=== PATIENT | female | born 1980 | race African-American/Black ===

== ENCOUNTER 2016-04-14 18:56 | Emergency (ER) | payer MEDICAID ==
[~2016-04-14] VITALS: Ht 160 cm; Wt 122.7 kg
[~2016-04-14 18:56] MED LIST: BENZ1TAB10 PO; HALO5 PO; HYDR25TA PO; IBUP-1547 PO; INSU100V12 SQ; LOSA1TAB36 PO; METF500T4 PO; SERT50TA12 PO
[2016-04-14 19:06] LABS: GLUCOSE,POINT OF CARE 269 MG/DL (70-110)
[2016-04-14] MEDS ORDERED: LOSA50TA37 PO (19:08)
[2016-04-14] MEDS ORDERED: BENZ2TAB10 PO (19:08)
[2016-04-14 19:36] LABS: BASOPHILS # (AUTO) 0.01 K/uL (0.00-0.20); BASOPHILS % (AUTO) 0.1 % (0.0-2.0); EOSINOPHILS # (AUTO) 0.11 K/uL (0.00-0.70); EOSINOPHILS % (AUTO) 0.88 % (1.0-6.0); HEMATOCRIT 43.3 % (36-46); HEMOGLOBIN 14.3 g/dL (12.0-16.0); LYMPHOCYTES # (AUTO) 2.4 K/uL (1.0-4.8); LYMPHOCYTES % (AUTO) 18.7 % (22.0-44.0); MEAN CORPUSCULAR HEMOGLOBIN 29.7 pg (26.0-34.0); MEAN CORPUSCULAR VOLUME 90 fL (80-100); MONOCYTES # (AUTO) 0.4 K/uL (0.1-1.0); MONOCYTES % (AUTO) 3.1 % (2.0-9.0); NEUTROPHILS # (AUTO) 9.8 K/uL (1.8-7.7); NEUTROPHILS % (AUTO) 77.3 % (40.0-70.0); PLATELET COUNT (AUTO) 311 K/uL (150-450); RED BLOOD CELL COUNT(AUTO) 4.82 MIL/uL (4.00-5.20); RED CELL DISTRIBUTION WIDTH 15.4 % (11.5-14.5); WHITE BLOOD COUNT (AUTO) 12.7 K/uL (4.5-11.0)
[2016-04-14 19:55] LABS: ANION GAP 7 mmol/L (8-16); CALCIUM, TOTAL 8.8 mg/dL (8.8-10.5); CARBON DIOXIDE 29 mmol/L (22-29); CHLORIDE 100 mmol/L (98-107); CREATININE 0.88 mg/dL (0.60-1.30); GLOMERULAR FILTR. RATE CALC > 60 mL/min (>60); POTASSIUM 3.8 mmol/L (3.5-5.1); SODIUM SERUM 136 mmol/L (136-145); UREA NITROGEN, BLOOD 10 mg/dL (7-18)
[2016-04-14 20:01] LABS: ALANINE AMINOTRANSFERASE 29 U/L (12-78); ALBUMIN 3.3 g/dL (3.4-5.0); ASPARTATE AMINOTRANSFERASE 11 U/L (15-37); BILIRUBIN,TOTAL 0.1 mg/dL (0.1-1.0); TOTAL PROTEIN, SERUM 7.4 g/dL (6.4-8.2)
[2016-04-14 23:00] VITALS: BP 126/74
[2016-04-14] MEDS ORDERED: HALOPERIDOL LACTATE 5 MG/ML VIAL IM ONE (23:00)
[2016-04-14] MEDS ORDERED: LORazepam 2 MG/ML VIAL IM ONE (23:00)
== END 2016-04-14 23:58 | disposition home or self-care (01) ==
LOC: EMS 18:58 → EDBD 18:58 → EMS 23:58
DX: S20.219A Contusion of unspecified front wall of thorax, initial encounter (principal); E11.65 Type 2 diabetes mellitus with hyperglycemia; F69 Unspecified disorder of adult personality and behavior; I10 Essential (primary) hypertension; F17.210 Nicotine dependence, cigarettes, uncomplicated; F20.9 Schizophrenia, unspecified; F41.9 Anxiety disorder, unspecified; F32.9 Major depressive disorder, single episode, unspecified; F12.90 Cannabis use, unspecified, uncomplicated; Z88.0 Allergy status to penicillin; X58.XXXA Exposure to other specified factors, initial encounter; Y93.89 Activity, other specified; Y92.89 Other specified places as the place of occurrence of the external cause; Y99.8 Other external cause status
CPT/HCPCS: 36415; 80053; 80307; 82962; 84703; 85025; 99284; G0480

== ENCOUNTER 2016-04-20 12:07 | Emergency (ER) | payer MEDICAID ==
[~2016-04-20] VITALS: Ht 167.6 cm; Wt 122.0 kg
[~2016-04-20 12:07] MED LIST changes: -BENZ1TAB10 PO; +BENZ2TAB10 PO; -LOSA1TAB36 PO; +LOSA50TA37 PO; -SERT50TA12 PO
[2016-04-20 14:26] LABS: BASOPHILS % (AUTO) 0.3 % (0.0-2.0); EOSINOPHILS % (AUTO) 1.3 % (1.0-6.0); HEMATOCRIT 46.7 % (36-46); HEMOGLOBIN 15.1 g/dL (12.0-16.0); LYMPHOCYTES # (AUTO) 3.3 K/uL (1.0-4.8); LYMPHOCYTES % (AUTO) 32.4 % (22.0-44.0); MEAN CORPUSCULAR HEMOGLOBIN 29.1 pg (26.0-34.0); MEAN CORPUSCULAR HGB CONC 32.4 G/dL (31.0-37.0); MEAN CORPUSCULAR VOLUME 90 fL (80-100); MONOCYTES # (AUTO) 0.7 K/uL (0.1-1.0); MONOCYTES % (AUTO) 6.6 % (2.0-9.0); NEUTROPHILS # (AUTO) 6.1 K/uL (1.8-7.7); NEUTROPHILS % (AUTO) 59.4 % (40.0-70.0); PLATELET COUNT (AUTO) 280 K/uL (150-450); RED CELL DISTRIBUTION WIDTH 14.8 % (11.5-14.5); WHITE BLOOD COUNT (AUTO) 10.3 K/uL (4.5-11.0)
[2016-04-20] MEDS ORDERED: KETOROLAC TROMETHAMINE 60 MG/2 ML VIAL IM ONE (15:45)
[2016-04-20 16:12] LABS: APPEARANCE,URINE CLEAR (CLEAR); GLUCOSE, URINE (UA) >=1000 mg/dL (NEGATIVE); KETONES,URINE NEGATIVE (NEGATIVE); LEUKOCYTE ESTERASE ,URINE NEGATIVE (NEGATIVE); OCCULT BLOOD,URINE NEGATIVE (NEGATIVE); PH,URINE 5.5 (5.0-8.0); PROTEIN,URINE POS 1+ (NEGATIVE)
[2016-04-20 16:13] LABS: ADD UA MICROSCOPIC YES
[2016-04-20 16:33] LABS: SQUAMOUS EPITHELIAL CELL,UR Moderate /LPF (None Seen)
[2016-04-20 16:34] LABS: COARSE GRANULAR CASTS,URINE 0-2 /LPF (None Seen); FINE GRANULAR CASTS,URINE 0-2 /LPF (None Seen)
[2016-04-20 16:36] LABS: HYALINE CASTS, URINE 0-2 /LPF (None Seen); RBC,URINE 0-2 /HPF (0-2); WBC,URINE 0-2 /HPF (0-5)
[2016-04-20] MEDS ORDERED: HALOPERIDOL DECANOATE 100 MG/ML VIAL IM ONE (16:45)
[2016-04-20] MEDS ORDERED: LORazepam 2 MG TABLET PO ONE (16:45)
[2016-04-20] MEDS ORDERED: HALOPERIDOL 5 MG TABLET PO ONE (16:45)
[2016-04-20] MEDS ORDERED: DiphenhydrAMINE HCL 25 MG CAPSULE PO ONE (16:45)
[2016-04-20 18:05] VITALS: BP 131/74
== END 2016-04-20 18:41 | disposition home or self-care (01) ==
LOC: EMS 12:09
DX: N93.9 Abnormal uterine and vaginal bleeding, unspecified (principal); F20.9 Schizophrenia, unspecified; F41.9 Anxiety disorder, unspecified; F31.9 Bipolar disorder, unspecified; E11.9 Type 2 diabetes mellitus without complications; I10 Essential (primary) hypertension; F17.210 Nicotine dependence, cigarettes, uncomplicated; F12.90 Cannabis use, unspecified, uncomplicated; Z79.4 Long term (current) use of insulin; Z88.0 Allergy status to penicillin
CPT/HCPCS: 36415; 76856; 81001; 84703; 85025; 87086; 96372; 99285; 99406; J1885; J1631

== ENCOUNTER 2016-05-12 12:19 | Inpatient (IN) | payer MEDICAID ==
[~2016-05-12] VITALS: Ht 160 cm; Wt 112.5 kg
[2016-05-12 12:31] LABS: GLUCOSE,POINT OF CARE 153 MG/DL (70-110)
[2016-05-12 13:09] LABS: BASOPHILS % (AUTO) 0.1 % (0.0-2.0); EOSINOPHILS % (AUTO) 0.7 % (1.0-6.0); HEMATOCRIT 47.3 % (36-46); HEMOGLOBIN 15.6 g/dL (12.0-16.0); LYMPHOCYTES # (AUTO) 2.5 K/uL (1.0-4.8); LYMPHOCYTES % (AUTO) 15.6 % (22.0-44.0); MEAN CORPUSCULAR HEMOGLOBIN 29.4 pg (26.0-34.0); MEAN CORPUSCULAR VOLUME 89 fL (80-100); MONOCYTES # (AUTO) 0.1 K/uL (0.1-1.0); MONOCYTES % (AUTO) 0.9 % (2.0-9.0); NEUTROPHILS # (AUTO) 13.5 K/uL (1.8-7.7); NEUTROPHILS % (AUTO) 82.7 % (40.0-70.0); PLATELET COUNT (AUTO) 348 K/uL (150-450); RED BLOOD CELL COUNT(AUTO) 5.31 MIL/uL (4.00-5.20); RED CELL DISTRIBUTION WIDTH 15.1 % (11.5-14.5); WHITE BLOOD COUNT (AUTO) 16.3 K/uL (4.5-11.0)
[2016-05-12 13:25] LABS: ANION GAP 10 mmol/L (8-16); CALCIUM, TOTAL 8.8 mg/dL (8.8-10.5); CARBON DIOXIDE 27 mmol/L (22-29); CHLORIDE 99 mmol/L (98-107); CREATININE 0.81 mg/dL (0.60-1.30); GLOMERULAR FILTR. RATE CALC > 60 mL/min (>60); POTASSIUM 4.2 mmol/L (3.5-5.1); SODIUM SERUM 136 mmol/L (136-145); UREA NITROGEN, BLOOD 10 mg/dL (7-18)
[2016-05-12 13:30] LABS: ALANINE AMINOTRANSFERASE 34 U/L (12-78); ALBUMIN 3.5 g/dL (3.4-5.0); ASPARTATE AMINOTRANSFERASE 21 U/L (15-37); BILIRUBIN,TOTAL 0.1 mg/dL (0.1-1.0); TOTAL PROTEIN, SERUM 7.8 g/dL (6.4-8.2)
[2016-05-12] MEDS ORDERED: LORazepam 2 MG TABLET PO ONE (15:00)
[2016-05-12] MEDS ORDERED: HALOPERIDOL 5 MG TABLET PO ONE (15:00)
[2016-05-12] MEDS ORDERED: HALOPERIDOL 5 MG TABLET PO PRN (16:00)
[2016-05-12] MEDS ORDERED: LORazepam 2 MG TABLET PO PRN (16:00)
[2016-05-12] MEDS ORDERED: ZOLPIDEM TARTRATE 10 MG TABLET PO PRN (16:00)
[2016-05-12 18:00] VITALS: BP 133/82
[2016-05-12 18:56] LABS: GLUCOSE,POINT OF CARE 290 MG/DL (70-110)
[2016-05-12] MEDS: INSULIN ASPART 100 UNITS/ML SQ PRN ×2 (18:57→21:06)
[2016-05-12] MEDS ORDERED: DEXTROSE 50%-WATER 25 GM/50 ML SYRINGE IVP PRN (19:00)
[2016-05-12] MEDS ORDERED: IBUPROFEN 800 MG TABLET PO PRN (19:30)
[2016-05-12] MEDS: INSULIN DETEMIR 100 UNITS/ML SQ SCH (21:06)
[2016-05-12 21:07] LABS: GLUCOSE,POINT OF CARE 259 MG/DL (70-110)
[2016-05-12 21:44] LABS: APPEARANCE,URINE TURBID (CLEAR); GLUCOSE, URINE (UA) 250 mg/dL (NEGATIVE); KETONES,URINE NEGATIVE (NEGATIVE); LEUKOCYTE ESTERASE ,URINE NEGATIVE (NEGATIVE); OCCULT BLOOD,URINE TRACE (NEGATIVE); PH,URINE 5.5 (5.0-8.0); PROTEIN,URINE SEE CONFIRM (NEGATIVE)
[2016-05-12 21:50] LABS: ADD UA MICROSCOPIC YES
[2016-05-12 22:58] LABS: SULFOSALICYLIC ACID,URINE 1+ (Negative)
[2016-05-12 22:59] LABS: RBC,URINE None Seen /HPF (0-2)
[2016-05-12 23:00] LABS: AMORPHOUS SEDIMENT,UR Moderate /LPF (None Seen); SQUAMOUS EPITHELIAL CELL,UR Few /LPF (None Seen)
[2016-05-13 05:27] LABS: GLUCOSE,POINT OF CARE 174 MG/DL (70-110)
[2016-05-13] MEDS: MetFORMIN HCL 500 MG TABLET PO SCH ×2 (06:39→16:52)
[2016-05-13] MEDS: INSULIN ASPART 100 UNITS/ML SQ PRN ×4 (06:39→20:57)
[2016-05-13] MEDS ORDERED: ONDANSETRON HCL 4 MG TABLET PO PRN (07:45)
[2016-05-13] MEDS ORDERED: FLUCONAZOLE 150 MG TABLET PO ONE (07:45)
[2016-05-13] MEDS ORDERED: BACITRACIN 28.4 GM OINTMENT TP PRN (07:45)
[2016-05-13] MEDS ORDERED: PETROLATUM,WHITE 71 GM JELLY TP PRN (07:45)
[2016-05-13] MEDS ORDERED: CloNIDine HCL 0.1 MG TABLET PO PRN (07:45)
[2016-05-13] MEDS ORDERED: MAGNESIUM HYDROXIDE SUSPENSION 30 ML UDCUP PO PRN (07:45)
[2016-05-13] MEDS ORDERED: IBUPROFEN 600 MG TABLET PO PRN (07:45)
[2016-05-13] MEDS ORDERED: ACETAMINOPHEN 325 MG TABLET PO PRN (07:45)
[2016-05-13] MEDS ORDERED: LOPERAMIDE HCL 2 MG CAPSULE PO PRN (07:45)
[2016-05-13] MEDS ORDERED: MAG HYDROX/AL HYDROX/SIMETH ES 30 ML SUSPENSION UDCUP PO PRN (07:45)
[2016-05-13] MEDS ORDERED: BENZOCAINE/MENTHOL LOZENGE [8 LOZENGES/PACKET] MM PRN (07:45)
[2016-05-13] MEDS ORDERED: ALBUTEROL SULFATE HFA 90 MCG/PUFF 8 GM INHALER IH PRN (07:45)
[2016-05-13 08:00] VITALS: BP 139/86
[2016-05-13] MEDS: CIPROFLOXACIN HCL 250 MG TABLET PO SCH ×2 (08:18→16:52)
[2016-05-13] MEDS: HYDROCHLOROTHIAZIDE 25 MG TABLET PO SCH (08:19)
[2016-05-13] MEDS: LOSARTAN POTASSIUM 50 MG TABLET PO SCH (08:19)
[2016-05-13 11:26] LABS: GLUCOSE,POINT OF CARE 311 MG/DL (70-110)
[2016-05-13 16:29] VITALS: BP 123/73
[2016-05-13 16:30] VITALS: BP 123/73
[2016-05-13 17:02] LABS: GLUCOSE,POINT OF CARE 165 MG/DL (70-110)
[2016-05-13 20:46] LABS: GLUCOSE,POINT OF CARE 177 MG/DL (70-110)
[2016-05-13] MEDS: INSULIN DETEMIR 100 UNITS/ML SQ SCH (20:56)
[2016-05-14 05:27] LABS: GLUCOSE,POINT OF CARE 163 MG/DL (70-110)
[2016-05-14] MEDS: MetFORMIN HCL 500 MG TABLET PO SCH ×2 (06:42→17:22)
[2016-05-14] MEDS: INSULIN ASPART 100 UNITS/ML SQ PRN ×4 (06:43→21:06)
[2016-05-14] MEDS: CIPROFLOXACIN HCL 250 MG TABLET PO SCH ×2 (09:17→16:23)
[2016-05-14] MEDS: HYDROCHLOROTHIAZIDE 25 MG TABLET PO SCH (09:17)
[2016-05-14] MEDS: LOSARTAN POTASSIUM 50 MG TABLET PO SCH (09:30)
[2016-05-14 11:36] LABS: GLUCOSE,POINT OF CARE 198 MG/DL (70-110)
[2016-05-14 16:30] VITALS: BP 134/93
[2016-05-14 16:32] LABS: GLUCOSE COMMENT 1 Received Meds; GLUCOSE,POINT OF CARE 206 MG/DL (70-110)
[2016-05-14] MEDS: INSULIN DETEMIR 100 UNITS/ML SQ SCH (21:05)
[2016-05-14 21:08] LABS: GLUCOSE COMMENT 1 Received Meds; GLUCOSE,POINT OF CARE 194 MG/DL (70-110)
[2016-05-15 05:32] LABS: GLUCOSE,POINT OF CARE 190 MG/DL (70-110)
[2016-05-15] MEDS: MetFORMIN HCL 500 MG TABLET PO SCH ×2 (07:01→17:35)
[2016-05-15] MEDS: INSULIN ASPART 100 UNITS/ML SQ PRN ×4 (07:04→21:32)
[2016-05-15 09:20] VITALS: BP 117/60
[2016-05-15] MEDS: CIPROFLOXACIN HCL 250 MG TABLET PO SCH ×2 (09:39→16:09)
[2016-05-15] MEDS: HYDROCHLOROTHIAZIDE 25 MG TABLET PO SCH (09:40)
[2016-05-15] MEDS: LOSARTAN POTASSIUM 50 MG TABLET PO SCH (09:41)
[2016-05-15 11:32] LABS: GLUCOSE,POINT OF CARE 208 MG/DL (70-110)
[2016-05-15] MEDS: BENZTROPINE MESYLATE 1 MG TABLET PO SCH (16:09)
[2016-05-15 16:12] LABS: GLUCOSE COMMENT 1 Received Meds; GLUCOSE,POINT OF CARE 163 MG/DL (70-110)
[2016-05-15 16:22] VITALS: BP 130/81
[2016-05-15 20:21] LABS: GLUCOSE COMMENT 1 Received Meds; GLUCOSE,POINT OF CARE 188 MG/DL (70-110)
[2016-05-15] MEDS: INSULIN DETEMIR 100 UNITS/ML SQ SCH (21:33)
[2016-05-16 06:12] LABS: GLUCOSE,POINT OF CARE 196 MG/DL (70-110)
[2016-05-16] MEDS: MetFORMIN HCL 500 MG TABLET PO SCH (06:59)
[2016-05-16] MEDS: INSULIN ASPART 100 UNITS/ML SQ PRN (07:05)
[2016-05-16 08:08] VITALS: BP 104/60
[2016-05-16] MEDS ORDERED: CIPR-279 PO (08:22)
[2016-05-16] MEDS ORDERED: BENZ1TAB10 PO (08:22)
[2016-05-16] MEDS ORDERED: HALOD100I IM (08:25)
[2016-05-16] MEDS: CIPROFLOXACIN HCL 250 MG TABLET PO SCH (10:18)
[2016-05-16] MEDS: BENZTROPINE MESYLATE 1 MG TABLET PO SCH (10:18)
[2016-05-16] MEDS: LOSARTAN POTASSIUM 50 MG TABLET PO SCH (10:18)
[2016-05-16] MEDS: HYDROCHLOROTHIAZIDE 25 MG TABLET PO SCH (10:19)
[2016-05-16] MEDS ORDERED: FLUCONAZOLE 100 MG TABLET PO ONE (11:30)
[2016-05-25] MEDS ORDERED: HALOPERIDOL DECANOATE 100 MG/ML VIAL IM SCH (09:00)
== END 2016-05-16 12:30 | disposition home or self-care (01) | DRG 750 ==
LOC: EMS 12:20 → 3EI 17:27
PROVIDERS: ADMIT Psychiatry & Neurology Psychiatry; ATTEND Psychiatry & Neurology Psychiatry
DX: F25.9 Schizoaffective disorder, unspecified (principal); B48.8 Other specified mycoses; Z68.41 Body mass index [BMI] 40.0-44.9, adult; E11.65 Type 2 diabetes mellitus with hyperglycemia; R45.851 Suicidal ideations; N39.0 Urinary tract infection, site not specified; F41.9 Anxiety disorder, unspecified; I10 Essential (primary) hypertension; F31.9 Bipolar disorder, unspecified; E66.01 Morbid (severe) obesity due to excess calories; N83.201 Unspecified ovarian cyst, right side; K59.00 Constipation, unspecified; G47.00 Insomnia, unspecified; B37.49 Other urogenital candidiasis; F17.210 Nicotine dependence, cigarettes, uncomplicated; F12.90 Cannabis use, unspecified, uncomplicated; Z88.0 Allergy status to penicillin; Z79.899 Other long term (current) drug therapy; Z79.84 Long term (current) use of oral hypoglycemic drugs; Z79.4 Long term (current) use of insulin; Z98.890 Other specified postprocedural states; Z71.6 Tobacco abuse counseling; Z71.41 Alcohol abuse counseling and surveillance of alcoholic; Z72.89 Other problems related to lifestyle; Z71.51 Drug abuse counseling and surveillance of drug abuser
CPT/HCPCS: 82962; 87086; 99285; 99406; G0480

== ENCOUNTER 2016-05-23 19:59 | Emergency (ER) | payer MEDICAID, OTHER ==
[~2016-05-23] VITALS: Ht 160 cm; Wt 114.0 kg
[~2016-05-23 19:59] MED LIST changes: +BENZ1TAB10 PO; -BENZ2TAB10 PO; +CIPR-279 PO; -HALO5 PO; +HALOD100I IM; -IBUP-1547 PO
[2016-05-23 20:37] LABS: GLUCOSE,POINT OF CARE 280 MG/DL (70-110)
[2016-05-23 21:27] LABS: APPEARANCE,URINE CLEAR (CLEAR); GLUCOSE, URINE (UA) >=1000 mg/dL (NEGATIVE); KETONES,URINE NEGATIVE (NEGATIVE); LEUKOCYTE ESTERASE ,URINE NEGATIVE (NEGATIVE); OCCULT BLOOD,URINE NEGATIVE (NEGATIVE); PROTEIN,URINE SEE CONFIRM (NEGATIVE)
[2016-05-23 21:39] LABS: ADD UA MICROSCOPIC YES
[2016-05-23 21:54] LABS: SULFOSALICYLIC ACID,URINE 1+ (Negative)
[2016-05-23 21:57] LABS: RBC,URINE 0-2 /HPF (0-2); SQUAMOUS EPITHELIAL CELL,UR Moderate /LPF (None Seen)
[2016-05-23] MEDS ORDERED: KETOROLAC TROMETHAMINE 60 MG/2 ML VIAL IM ONE (23:15)
[2016-05-23 23:25] LABS: BASOPHILS % (AUTO) 0.5 % (0.0-2.0); EOSINOPHILS % (AUTO) 1.5 % (1.0-6.0); HEMATOCRIT 42.6 % (36-46); HEMOGLOBIN 13.8 g/dL (12.0-16.0); LYMPHOCYTES # (AUTO) 4.6 K/uL (1.0-4.8); LYMPHOCYTES % (AUTO) 22.7 % (22.0-44.0); MEAN CORPUSCULAR HGB CONC 32.4 G/dL (31.0-37.0); MEAN CORPUSCULAR VOLUME 90 fL (80-100); MONOCYTES # (AUTO) 0.6 K/uL (0.1-1.0); MONOCYTES % (AUTO) 2.8 % (2.0-9.0); NEUTROPHILS # (AUTO) 14.6 K/uL (1.8-7.7); NEUTROPHILS % (AUTO) 72.5 % (40.0-70.0); PLATELET COUNT (AUTO) 384 K/uL (150-450); RED BLOOD CELL COUNT(AUTO) 4.76 MIL/uL (4.00-5.20); RED CELL DISTRIBUTION WIDTH 15.3 % (11.5-14.5); WHITE BLOOD COUNT (AUTO) 20.1 K/uL (4.5-11.0)
[2016-05-23 23:31] LABS: ANION GAP 6 mmol/L (8-16); CALCIUM, TOTAL 9.4 mg/dL (8.8-10.5); CARBON DIOXIDE 30 mmol/L (22-29); CHLORIDE 101 mmol/L (98-107); CREATININE 0.77 mg/dL (0.60-1.30); GLOMERULAR FILTR. RATE CALC > 60 mL/min (>60); POTASSIUM 4.4 mmol/L (3.5-5.1); SODIUM SERUM 137 mmol/L (136-145); UREA NITROGEN, BLOOD 9 mg/dL (7-18)
[2016-05-23 23:37] LABS: ALANINE AMINOTRANSFERASE 24 U/L (12-78); ALBUMIN 3.5 g/dL (3.4-5.0); ASPARTATE AMINOTRANSFERASE 14 U/L (15-37); BILIRUBIN,TOTAL 0.1 mg/dL (0.1-1.0); TOTAL PROTEIN, SERUM 7.6 g/dL (6.4-8.2)
[2016-05-23] MEDS ORDERED: SODIUM CHLORIDE 0.9% 1,000 ML IV ONE (23:45)
[2016-05-23] MEDS ORDERED: ONDANSETRON HCL 4 MG/2 ML VIAL IVP ONE (23:45)
[2016-05-23] MEDS ORDERED: BARIUM SULFATE 0.1% SUSPENSION 450 ML BOTTLE PO ONE (23:45)
[2016-05-24] MEDS ORDERED: IOVERSOL 350 MG/ML 150 ML VIAL ONE (01:22)
[2016-05-24 03:01] VITALS: BP 138/86
== END 2016-05-24 03:37 | disposition home or self-care (01) ==
LOC: EMS 19:59
DX: M54.5 Low back pain (principal); N83.201 Unspecified ovarian cyst, right side; I10 Essential (primary) hypertension; E11.65 Type 2 diabetes mellitus with hyperglycemia; F17.210 Nicotine dependence, cigarettes, uncomplicated; Z79.4 Long term (current) use of insulin; Z88.0 Allergy status to penicillin
CPT/HCPCS: 36415; 74177; 80053; 81001; 81002; 82962; 83690; 84703; 85025; 96361; 96372; 96374; 99285; 99406; J1885; J2405; J7030; Q9967

== ENCOUNTER 2016-06-03 18:21 | Inpatient (IN) | payer MEDICAID, OTHER ==
[~2016-06-03] VITALS: Ht 160 cm; Wt 116.3 kg
[~2016-06-03 18:21] MED LIST changes: -CIPR-279 PO
[2016-06-03 19:19] LABS: BASOPHILS % (AUTO) 0.4 % (0.0-2.0); EOSINOPHILS % (AUTO) 1.1 % (1.0-6.0); HEMATOCRIT 44.9 % (36-46); HEMOGLOBIN 14.6 g/dL (12.0-16.0); LYMPHOCYTES % (AUTO) 20.9 % (22.0-44.0); MEAN CORPUSCULAR HGB CONC 32.4 G/dL (31.0-37.0); MEAN CORPUSCULAR VOLUME 89 fL (80-100); MONOCYTES # (AUTO) 0.3 K/uL (0.1-1.0); MONOCYTES % (AUTO) 2.3 % (2.0-9.0); NEUTROPHILS # (AUTO) 10.9 K/uL (1.8-7.7); NEUTROPHILS % (AUTO) 75.3 % (40.0-70.0); PLATELET COUNT (AUTO) 345 K/uL (150-450); RED BLOOD CELL COUNT(AUTO) 5.03 MIL/uL (4.00-5.20); RED CELL DISTRIBUTION WIDTH 15.6 % (11.5-14.5); WHITE BLOOD COUNT (AUTO) 14.5 K/uL (4.5-11.0)
[2016-06-03 19:34] LABS: ANION GAP 10 mmol/L (8-16); CALCIUM, TOTAL 8.9 mg/dL (8.8-10.5); CARBON DIOXIDE 28 mmol/L (22-29); CHLORIDE 101 mmol/L (98-107); CREATININE 0.84 mg/dL (0.60-1.30); GLOMERULAR FILTR. RATE CALC > 60 mL/min (>60); POTASSIUM 3.8 mmol/L (3.5-5.1); SODIUM SERUM 139 mmol/L (136-145); UREA NITROGEN, BLOOD 13 mg/dL (7-18)
[2016-06-03 19:39] LABS: ALANINE AMINOTRANSFERASE 33 U/L (12-78); ALBUMIN 3.2 g/dL (3.4-5.0); ASPARTATE AMINOTRANSFERASE 12 U/L (15-37); BILIRUBIN,TOTAL 0.1 mg/dL (0.1-1.0); TOTAL PROTEIN, SERUM 7.5 g/dL (6.4-8.2)
[2016-06-03 19:42] LABS: GLUCOSE,POINT OF CARE 273 MG/DL (70-110)
[2016-06-03] MEDS ORDERED: HALOPERIDOL 5 MG TABLET PO PRN (20:00)
[2016-06-03 22:12] VITALS: BP 149/91
[2016-06-03 22:12] LABS: GLUCOSE,POINT OF CARE 241 MG/DL (70-110)
[2016-06-03] MEDS: LORazepam 2 MG TABLET PO PRN (22:13)
[2016-06-03] MEDS: ZOLPIDEM TARTRATE 10 MG TABLET PO PRN (22:39)
[2016-06-04] MEDS ORDERED: GLUCAGON,HUMAN RECOMBINANT 1 MG VIAL IM PRN (05:00)
[2016-06-04] MEDS: MetFORMIN HCL 500 MG TABLET PO SCH ×2 (06:34→16:56)
[2016-06-04 06:37] LABS: GLUCOSE,POINT OF CARE 248 MG/DL (70-110)
[2016-06-04] MEDS: INSULIN ASPART 100 UNITS/ML SQ PRN ×4 (06:56→21:27)
[2016-06-04 07:11] VITALS: BP 133/88
[2016-06-04 08:32] VITALS: BP 130/84
[2016-06-04] MEDS: LOSARTAN POTASSIUM 50 MG TABLET PO SCH (08:42)
[2016-06-04] MEDS: HYDROCHLOROTHIAZIDE 25 MG TABLET PO SCH (08:42)
[2016-06-04] MEDS: LORazepam 2 MG TABLET PO PRN ×2 (10:16→16:56)
[2016-06-04 12:28] LABS: GLUCOSE,POINT OF CARE 252 MG/DL (70-110)
[2016-06-04 16:22] VITALS: BP 123/67
[2016-06-04 17:12] LABS: GLUCOSE,POINT OF CARE 259 MG/DL (70-110)
[2016-06-04] MEDS: INSULIN DETEMIR 100 UNITS/ML SQ SCH (20:55)
[2016-06-04] MEDS ORDERED: INSULIN DETEMIR 100 UNITS/ML SQ SCH (21:00)
[2016-06-04] MEDS: ZOLPIDEM TARTRATE 10 MG TABLET PO PRN (21:06)
[2016-06-04 21:17] LABS: GLUCOSE,POINT OF CARE 213 MG/DL (70-110)
[2016-06-05 06:37] LABS: GLUCOSE,POINT OF CARE 143 MG/DL (70-110)
[2016-06-05 06:46] VITALS: BP 118/79
[2016-06-05] MEDS: MetFORMIN HCL 500 MG TABLET PO SCH ×2 (06:49→16:33)
[2016-06-05] MEDS: INSULIN ASPART 100 UNITS/ML SQ PRN ×4 (06:50→21:25)
[2016-06-05 07:45] LABS: BASOPHILS # (AUTO) 0.04 K/uL (0.00-0.20); BASOPHILS % (AUTO) 0.3 % (0.0-2.0); EOSINOPHILS # (AUTO) 0.21 K/uL (0.00-0.70); EOSINOPHILS % (AUTO) 1.63 % (1.0-6.0); HEMATOCRIT 44.3 % (36-46); HEMOGLOBIN 14.8 g/dL (12.0-16.0); LYMPHOCYTES # (AUTO) 4.2 K/uL (1.0-4.8); LYMPHOCYTES % (AUTO) 33.2 % (22.0-44.0); MEAN CORPUSCULAR HEMOGLOBIN 29.6 pg (26.0-34.0); MEAN CORPUSCULAR HGB CONC 33.5 G/dL (31.0-37.0); MEAN CORPUSCULAR VOLUME 88 fL (80-100); MONOCYTES # (AUTO) 0.7 K/uL (0.1-1.0); MONOCYTES % (AUTO) 5.4 % (2.0-9.0); NEUTROPHILS # (AUTO) 7.6 K/uL (1.8-7.7); NEUTROPHILS % (AUTO) 59.5 % (40.0-70.0); PLATELET COUNT (AUTO) 299 K/uL (150-450); RED BLOOD CELL COUNT(AUTO) 5.01 MIL/uL (4.00-5.20); RED CELL DISTRIBUTION WIDTH 15.9 % (11.5-14.5); WHITE BLOOD COUNT (AUTO) 12.7 K/uL (4.5-11.0)
[2016-06-05] MEDS: HYDROCHLOROTHIAZIDE 25 MG TABLET PO SCH (08:56)
[2016-06-05] MEDS: LOSARTAN POTASSIUM 50 MG TABLET PO SCH (08:56)
[2016-06-05 08:59] VITALS: BP 113/55
[2016-06-05 12:17] LABS: GLUCOSE,POINT OF CARE 220 MG/DL (70-110)
[2016-06-05 16:00] VITALS: BP 128/96
[2016-06-05] MEDS: LORazepam 2 MG TABLET PO PRN (16:18)
[2016-06-05 16:22] LABS: GLUCOSE,POINT OF CARE 228 MG/DL (70-110)
[2016-06-05] MEDS ORDERED: CloNIDine HCL 0.1 MG TABLET PO PRN (20:15)
[2016-06-05] MEDS ORDERED: BENZOCAINE/MENTHOL LOZENGE MM PRN (20:15)
[2016-06-05] MEDS ORDERED: MAG HYDROX/AL HYDROX/SIMETH ES 30 ML SUSPENSION UDCUP PO PRN (20:15)
[2016-06-05] MEDS ORDERED: LOPERAMIDE HCL 2 MG CAPSULE PO PRN (20:15)
[2016-06-05] MEDS ORDERED: PETROLATUM,WHITE 71 GM JELLY TP PRN (20:15)
[2016-06-05] MEDS ORDERED: BACITRACIN 28.4 GM OINTMENT TP PRN (20:15)
[2016-06-05] MEDS ORDERED: ALBUTEROL SULFATE HFA 90 MCG/PUFF 8 GM INHALER IH PRN (20:15)
[2016-06-05] MEDS ORDERED: ONDANSETRON HCL 4 MG TABLET PO PRN (20:15)
[2016-06-05] MEDS ORDERED: MAGNESIUM HYDROXIDE SUSPENSION 30 ML UDCUP PO PRN (20:15)
[2016-06-05] MEDS ORDERED: IBUPROFEN 600 MG TABLET PO PRN (20:15)
[2016-06-05] MEDS ORDERED: ACETAMINOPHEN 325 MG TABLET PO PRN (20:15)
[2016-06-05] MEDS: INSULIN DETEMIR 100 UNITS/ML SQ SCH (20:45)
[2016-06-05] MEDS: ZOLPIDEM TARTRATE 10 MG TABLET PO PRN (20:59)
[2016-06-05 21:02] LABS: GLUCOSE,POINT OF CARE 279 MG/DL (70-110)
[2016-06-06 06:18] LABS: GLUCOSE,POINT OF CARE 172 MG/DL (70-110)
[2016-06-06 06:26] VITALS: BP 130/89
[2016-06-06] MEDS: MetFORMIN HCL 500 MG TABLET PO SCH (06:34)
[2016-06-06] MEDS: INSULIN ASPART 100 UNITS/ML SQ PRN ×2 (06:58→11:21)
[2016-06-06] MEDS: LORazepam 2 MG TABLET PO PRN (08:47)
[2016-06-06] MEDS: HYDROCHLOROTHIAZIDE 25 MG TABLET PO SCH (08:47)
[2016-06-06] MEDS: LOSARTAN POTASSIUM 50 MG TABLET PO SCH (08:47)
[2016-06-06 09:00] LABS: ALANINE AMINOTRANSFERASE 29 U/L (12-78); ALBUMIN 3.2 g/dL (3.4-5.0); ANION GAP 8 mmol/L (8-16); ASPARTATE AMINOTRANSFERASE 15 U/L (15-37); BILIRUBIN,TOTAL 0.2 mg/dL (0.1-1.0); CALCIUM, TOTAL 8.9 mg/dL (8.8-10.5); CARBON DIOXIDE 29 mmol/L (22-29); CHLORIDE 102 mmol/L (98-107); CREATININE 0.61 mg/dL (0.60-1.30); GLOMERULAR FILTR. RATE CALC > 60 mL/min (>60); PHOSPHORUS 4.8 mg/dL (2.5-4.9); POTASSIUM 4.3 mmol/L (3.5-5.1); SODIUM SERUM 139 mmol/L (136-145); TOTAL PROTEIN, SERUM 6.7 g/dL (6.4-8.2); UREA NITROGEN, BLOOD 16 mg/dL (7-18)
[2016-06-06] MEDS ORDERED: OMEPRAZOLE 20 MG CAPSULE PO SCH (09:00)
[2016-06-06] MEDS ORDERED: DOCUSATE SODIUM 100 MG CAPSULE PO SCH (09:00)
[2016-06-06 12:02] LABS: GLUCOSE,POINT OF CARE 208 MG/DL (70-110)
[2016-06-06] MEDS ORDERED: HYDR25TA PO (12:39)
[2016-06-06] MEDS ORDERED: DSS100 PO (12:39)
[2016-06-06] MEDS ORDERED: ALBU8HFA IH (12:39)
[2016-06-06] MEDS ORDERED: OMEP20 PO (12:39)
== END 2016-06-06 14:40 | disposition home or self-care (01) | DRG 750 ==
LOC: EMS 18:22 → B3A 21:00
PROVIDERS: ADMIT Psychiatry & Neurology Psychiatry; ATTEND Psychiatry & Neurology Psychiatry
DX: F20.0 Paranoid schizophrenia (principal); R45.850 Homicidal ideations; I10 Essential (primary) hypertension; E11.9 Type 2 diabetes mellitus without complications; D72.829 Elevated white blood cell count, unspecified; E66.9 Obesity, unspecified; F12.90 Cannabis use, unspecified, uncomplicated; R51 Headache; Z88.0 Allergy status to penicillin; Z79.4 Long term (current) use of insulin; Z91.011 Allergy to milk products; Z71.6 Tobacco abuse counseling; Z71.51 Drug abuse counseling and surveillance of drug abuser; Z79.84 Long term (current) use of oral hypoglycemic drugs; Z79.899 Other long term (current) drug therapy; Z59.0 Homelessness
CPT/HCPCS: 82962; 83735; 84100; 87081; 99285; G0480

== ENCOUNTER 2016-06-21 09:53 | Inpatient (IN) | payer MEDICAID ==
[~2016-06-21] VITALS: Ht 160 cm; Wt 113.4 kg
[~2016-06-21 09:53] MED LIST changes: +ALBU8HFA IH; -BENZ1TAB10 PO; +DSS100 PO; +OMEP20 PO
[2016-06-21] MEDS ORDERED: HALOPERIDOL LACTATE 5 MG/ML VIAL IM ONE (10:15)
[2016-06-21] MEDS ORDERED: LORazepam 2 MG/ML VIAL IM ONE (10:15)
[2016-06-21] MEDS ORDERED: DiphenhydrAMINE HCL 50 MG/ML VIAL IM ONE (10:15)
[2016-06-21 10:30] LABS: BASOPHILS # (AUTO) 0.03 K/uL (0.00-0.20); BASOPHILS % (AUTO) 0.2 % (0.0-2.0); EOSINOPHILS # (AUTO) 0.07 K/uL (0.00-0.70); EOSINOPHILS % (AUTO) 0.52 % (1.0-6.0); HEMATOCRIT 44.7 % (36-46); HEMOGLOBIN 14.7 g/dL (12.0-16.0); LYMPHOCYTES # (AUTO) 1.8 K/uL (1.0-4.8); LYMPHOCYTES % (AUTO) 14.1 % (22.0-44.0); MEAN CORPUSCULAR HEMOGLOBIN 29.4 pg (26.0-34.0); MEAN CORPUSCULAR HGB CONC 32.9 G/dL (31.0-37.0); MEAN CORPUSCULAR VOLUME 89 fL (80-100); MONOCYTES # (AUTO) 0.6 K/uL (0.1-1.0); MONOCYTES % (AUTO) 4.4 % (2.0-9.0); NEUTROPHILS # (AUTO) 10.6 K/uL (1.8-7.7); NEUTROPHILS % (AUTO) 80.8 % (40.0-70.0); PLATELET COUNT (AUTO) 314 K/uL (150-450); RED CELL DISTRIBUTION WIDTH 15.6 % (11.5-14.5); WHITE BLOOD COUNT (AUTO) 13.1 K/uL (4.5-11.0)
[2016-06-21 10:40] LABS: ANION GAP 13 mmol/L (8-16); CALCIUM, TOTAL 9.4 mg/dL (8.8-10.5); CARBON DIOXIDE 24 mmol/L (22-29); CHLORIDE 97 mmol/L (98-107); CREATININE 1.07 mg/dL (0.60-1.30); GLOMERULAR FILTR. RATE CALC > 60 mL/min (>60); POTASSIUM 4.4 mmol/L (3.5-5.1); SODIUM SERUM 134 mmol/L (136-145); UREA NITROGEN, BLOOD 16 mg/dL (7-18)
[2016-06-21 10:46] LABS: ALANINE AMINOTRANSFERASE 31 U/L (12-78); ALBUMIN 3.8 g/dL (3.4-5.0); ASPARTATE AMINOTRANSFERASE 19 U/L (15-37); BILIRUBIN,TOTAL 0.2 mg/dL (0.1-1.0); TOTAL PROTEIN, SERUM 8.2 g/dL (6.4-8.2)
[2016-06-21] MEDS ORDERED: INSULIN REGULAR, HUMAN 100 UNITS/ML SQ ONE (11:00)
[2016-06-21 11:12] LABS: GLUCOSE,POINT OF CARE 388 MG/DL (70-110)
[2016-06-21] MEDS ORDERED: ACETAMINOPHEN 325 MG TABLET PO ONE (11:15)
[2016-06-21 12:22] LABS: GLUCOSE,POINT OF CARE 307 MG/DL (70-110)
[2016-06-21] MEDS ORDERED: ZOLPIDEM TARTRATE 10 MG TABLET PO PRN (13:15)
[2016-06-21] MEDS ORDERED: HALOPERIDOL 5 MG TABLET PO PRN (13:15)
[2016-06-21] MEDS ORDERED: ACETAMINOPHEN 325 MG TABLET PO PRN (14:30)
[2016-06-21] MEDS ORDERED: IBUPROFEN 600 MG TABLET PO PRN (14:30)
[2016-06-21] MEDS ORDERED: MAGNESIUM HYDROXIDE SUSPENSION 30 ML UDCUP PO PRN (14:30)
[2016-06-21] MEDS ORDERED: DEXTROSE 50%-WATER 25 GM/50 ML SYRINGE IVP PRN (14:30)
[2016-06-21] MEDS ORDERED: ALBUTEROL SULFATE HFA 90 MCG/PUFF 8 GM INHALER IH PRN (14:30)
[2016-06-21 14:50] VITALS: BP 102/54
[2016-06-21 16:38] VITALS: BP 138/77
[2016-06-21 16:57] LABS: GLUCOSE,POINT OF CARE 262 MG/DL (70-110)
[2016-06-21] MEDS: MetFORMIN HCL 500 MG TABLET PO SCH (17:20)
[2016-06-21] MEDS: INSULIN ASPART 100 UNITS/ML SQ PRN (17:20)
[2016-06-21 17:26] LABS: GLUCOSE COMMENT 1 Received Meds; GLUCOSE,POINT OF CARE 174 MG/DL (70-110)
[2016-06-21] MEDS: INSULIN DETEMIR 100 UNITS/ML SQ SCH (21:00)
[2016-06-22 05:36] VITALS: BP 128/76
[2016-06-22 05:44] LABS: GLUCOSE,POINT OF CARE 216 MG/DL (70-110)
[2016-06-22] MEDS: MetFORMIN HCL 500 MG TABLET PO SCH ×2 (06:37→17:33)
[2016-06-22] MEDS: INSULIN ASPART 100 UNITS/ML SQ PRN ×2 (06:38→17:23)
[2016-06-22] MEDS: LOSARTAN POTASSIUM 50 MG TABLET PO SCH (09:00)
[2016-06-22] MEDS: OMEPRAZOLE 20 MG CAPSULE PO SCH (09:45)
[2016-06-22] MEDS: CHOLECALCIFEROL (VIT D3) 2,000 UNITS TABLET PO SCH (09:45)
[2016-06-22] MEDS: HYDROCHLOROTHIAZIDE 25 MG TABLET PO SCH (09:45)
[2016-06-22] MEDS: DOCUSATE SODIUM 100 MG CAPSULE PO SCH (09:46)
[2016-06-22 19:39] LABS: GLUCOSE,POINT OF CARE 208 MG/DL (70-110)
[2016-06-22] MEDS: INSULIN DETEMIR 100 UNITS/ML SQ SCH (21:00)
[2016-06-23] MEDS: MetFORMIN HCL 500 MG TABLET PO SCH ×2 (06:53→16:11)
[2016-06-23] MEDS: INSULIN ASPART 100 UNITS/ML SQ PRN ×4 (07:02→21:25)
[2016-06-23 07:04] LABS: GLUCOSE,POINT OF CARE 213 MG/DL (70-110)
[2016-06-23 08:48] VITALS: BP 154/69
[2016-06-23] MEDS: DOCUSATE SODIUM 100 MG CAPSULE PO SCH (09:41)
[2016-06-23] MEDS: OMEPRAZOLE 20 MG CAPSULE PO SCH (09:42)
[2016-06-23] MEDS: HYDROCHLOROTHIAZIDE 25 MG TABLET PO SCH (09:42)
[2016-06-23] MEDS: CHOLECALCIFEROL (VIT D3) 2,000 UNITS TABLET PO SCH (09:42)
[2016-06-23] MEDS: LOSARTAN POTASSIUM 50 MG TABLET PO SCH (09:42)
[2016-06-23 13:48] LABS: GLUCOSE,POINT OF CARE 258 MG/DL (70-110)
[2016-06-23 16:17] LABS: GLUCOSE,POINT OF CARE 282 MG/DL (70-110)
[2016-06-23 17:00] VITALS: BP 155/100
[2016-06-23] MEDS: INSULIN DETEMIR 100 UNITS/ML SQ SCH (21:24)
[2016-06-23 21:52] LABS: GLUCOSE,POINT OF CARE 244 MG/DL (70-110)
[2016-06-24 05:27] LABS: GLUCOSE,POINT OF CARE 214 MG/DL (70-110)
[2016-06-24] MEDS: INSULIN ASPART 100 UNITS/ML SQ PRN ×4 (06:50→21:02)
[2016-06-24] MEDS: MetFORMIN HCL 500 MG TABLET PO SCH ×2 (06:50→17:15)
[2016-06-24 07:30] LABS: BASOPHILS % (AUTO) 0.4 % (0.0-2.0); EOSINOPHILS % (AUTO) 1.7 % (1.0-6.0); HEMATOCRIT 44.5 % (36-46); HEMOGLOBIN 14.4 g/dL (12.0-16.0); LYMPHOCYTES # (AUTO) 3.4 K/uL (1.0-4.8); LYMPHOCYTES % (AUTO) 28.7 % (22.0-44.0); MEAN CORPUSCULAR HEMOGLOBIN 28.7 pg (26.0-34.0); MEAN CORPUSCULAR HGB CONC 32.4 G/dL (31.0-37.0); MEAN CORPUSCULAR VOLUME 89 fL (80-100); MONOCYTES # (AUTO) 0.7 K/uL (0.1-1.0); NEUTROPHILS # (AUTO) 7.5 K/uL (1.8-7.7); NEUTROPHILS % (AUTO) 63.2 % (40.0-70.0); PLATELET COUNT (AUTO) 311 K/uL (150-450); RED BLOOD CELL COUNT(AUTO) 5.02 MIL/uL (4.00-5.20); RED CELL DISTRIBUTION WIDTH 15.1 % (11.5-14.5); WHITE BLOOD COUNT (AUTO) 11.9 K/uL (4.5-11.0)
[2016-06-24 07:56] LABS: CHOL/HDL RATIO 5.3 (3.9-5.7)
[2016-06-24 08:00] VITALS: BP 122/71
[2016-06-24] MEDS: OMEPRAZOLE 20 MG CAPSULE PO SCH (09:45)
[2016-06-24] MEDS: LOSARTAN POTASSIUM 50 MG TABLET PO SCH (09:45)
[2016-06-24] MEDS: HYDROCHLOROTHIAZIDE 25 MG TABLET PO SCH (09:45)
[2016-06-24] MEDS: DOCUSATE SODIUM 100 MG CAPSULE PO SCH (09:45)
[2016-06-24] MEDS: CHOLECALCIFEROL (VIT D3) 2,000 UNITS TABLET PO SCH (09:46)
[2016-06-24 11:47] LABS: GLUCOSE,POINT OF CARE 237 MG/DL (70-110)
[2016-06-24 16:12] LABS: GLUCOSE COMMENT 1 Received Meds; GLUCOSE,POINT OF CARE 255 MG/DL (70-110)
[2016-06-24] MEDS: LORazepam 2 MG TABLET PO PRN (20:00)
[2016-06-24 20:32] LABS: GLUCOSE COMMENT 1 Received Meds; GLUCOSE,POINT OF CARE 201 MG/DL (70-110)
[2016-06-24 20:37] VITALS: BP 140/77
[2016-06-24] MEDS: INSULIN DETEMIR 100 UNITS/ML SQ SCH (21:01)
[2016-06-25 05:42] LABS: GLUCOSE,POINT OF CARE 249 MG/DL (70-110)
[2016-06-25] MEDS: MetFORMIN HCL 500 MG TABLET PO SCH ×2 (06:56→17:24)
[2016-06-25] MEDS: INSULIN ASPART 100 UNITS/ML SQ PRN ×3 (06:58→21:00)
[2016-06-25 08:00] VITALS: BP 145/74
[2016-06-25] MEDS: LOSARTAN POTASSIUM 50 MG TABLET PO SCH (09:14)
[2016-06-25] MEDS: DOCUSATE SODIUM 100 MG CAPSULE PO SCH (09:14)
[2016-06-25] MEDS: HYDROCHLOROTHIAZIDE 25 MG TABLET PO SCH (09:15)
[2016-06-25] MEDS: CHOLECALCIFEROL (VIT D3) 2,000 UNITS TABLET PO SCH (09:15)
[2016-06-25] MEDS: OMEPRAZOLE 20 MG CAPSULE PO SCH (09:15)
[2016-06-25 16:02] LABS: GLUCOSE COMMENT 1 Received Meds; GLUCOSE,POINT OF CARE 215 MG/DL (70-110)
[2016-06-25 19:48] VITALS: BP 134/79
[2016-06-25] MEDS: LORazepam 2 MG TABLET PO PRN (20:10)
[2016-06-25 20:36] LABS: GLUCOSE COMMENT 1 Received Meds; GLUCOSE,POINT OF CARE 181 MG/DL (70-110)
[2016-06-25] MEDS: INSULIN DETEMIR 100 UNITS/ML SQ SCH (20:59)
[2016-06-25 21:07] VITALS: BP 129/78
[2016-06-26 05:32] LABS: GLUCOSE,POINT OF CARE 217 MG/DL (70-110)
[2016-06-26] MEDS: MetFORMIN HCL 500 MG TABLET PO SCH (06:40)
[2016-06-26] MEDS: INSULIN ASPART 100 UNITS/ML SQ PRN ×2 (06:50→11:59)
[2016-06-26 08:15] VITALS: BP 136/100
[2016-06-26] MEDS: OMEPRAZOLE 20 MG CAPSULE PO SCH (10:00)
[2016-06-26] MEDS: DOCUSATE SODIUM 100 MG CAPSULE PO SCH ×2 (10:00→10:08)
[2016-06-26] MEDS: HYDROCHLOROTHIAZIDE 25 MG TABLET PO SCH (10:00)
[2016-06-26] MEDS: CHOLECALCIFEROL (VIT D3) 2,000 UNITS TABLET PO SCH (10:01)
[2016-06-26] MEDS: LOSARTAN POTASSIUM 50 MG TABLET PO SCH (10:01)
[2016-06-26 11:23] LABS: GLUCOSE,POINT OF CARE 154 MG/DL (70-110)
[2016-07-05] MEDS ORDERED: HALOPERIDOL DECANOATE 100 MG/ML VIAL IM SCH (09:00)
== END 2016-06-26 15:45 | disposition home or self-care (01) | DRG 750 ==
LOC: EMS 09:55 → EEVIPCON 09:55 → 3EI 13:54
PROVIDERS: ADMIT Psychiatry & Neurology Psychiatry; ATTEND Psychiatry & Neurology Psychiatry
DX: F20.0 Paranoid schizophrenia (principal); E11.65 Type 2 diabetes mellitus with hyperglycemia; Z68.41 Body mass index [BMI] 40.0-44.9, adult; I10 Essential (primary) hypertension; S16.1XXA Strain of muscle, fascia and tendon at neck level, initial encounter; D72.829 Elevated white blood cell count, unspecified; R45.850 Homicidal ideations; J44.9 Chronic obstructive pulmonary disease, unspecified; E73.9 Lactose intolerance, unspecified; F41.9 Anxiety disorder, unspecified; F31.9 Bipolar disorder, unspecified; F17.210 Nicotine dependence, cigarettes, uncomplicated; F12.10 Cannabis abuse, uncomplicated; E66.3 Overweight; K21.9 Gastro-esophageal reflux disease without esophagitis; Z79.84 Long term (current) use of oral hypoglycemic drugs; Z91.19 Patient's noncompliance with other medical treatment and regimen; Z88.0 Allergy status to penicillin; Z79.899 Other long term (current) drug therapy
CPT/HCPCS: 82962; 87081; 96372; 99285; G0480; J1200; J1630; J1815; J2060

== ENCOUNTER 2016-07-17 17:23 | Emergency (ER) | payer MEDICAID ==
[~2016-07-17] VITALS: Ht 160 cm; Wt 113.6 kg
[2016-07-17 17:42] LABS: GLUCOSE,POINT OF CARE 221 MG/DL (70-110)
[2016-07-17 18:32] LABS: BASOPHILS # (AUTO) 0.01 K/uL (0.00-0.20); BASOPHILS % (AUTO) 0.1 % (0.0-2.0); EOSINOPHILS # (AUTO) 0.24 K/uL (0.00-0.70); EOSINOPHILS % (AUTO) 1.68 % (1.0-6.0); HEMATOCRIT 41.7 % (36-46); HEMOGLOBIN 13.6 g/dL (12.0-16.0); LYMPHOCYTES # (AUTO) 2.3 K/uL (1.0-4.8); LYMPHOCYTES % (AUTO) 16.4 % (22.0-44.0); MEAN CORPUSCULAR HEMOGLOBIN 29.4 pg (26.0-34.0); MEAN CORPUSCULAR HGB CONC 32.7 G/dL (31.0-37.0); MEAN CORPUSCULAR VOLUME 90 fL (80-100); MONOCYTES # (AUTO) 0.2 K/uL (0.1-1.0); MONOCYTES % (AUTO) 1.1 % (2.0-9.0); NEUTROPHILS # (AUTO) 11.4 K/uL (1.8-7.7); NEUTROPHILS % (AUTO) 80.8 % (40.0-70.0); PLATELET COUNT (AUTO) 320 K/uL (150-450); RED BLOOD CELL COUNT(AUTO) 4.63 MIL/uL (4.00-5.20); RED CELL DISTRIBUTION WIDTH 15.3 % (11.5-14.5); WHITE BLOOD COUNT (AUTO) 14.2 K/uL (4.5-11.0)
[2016-07-17 18:43] LABS: APPEARANCE,URINE CLEAR (CLEAR); GLUCOSE, URINE (UA) 250 mg/dL (NEGATIVE); KETONES,URINE TRACE mg/dL (NEGATIVE); OCCULT BLOOD,URINE NEGATIVE (NEGATIVE); PROTEIN,URINE SEE CONFIRM (NEGATIVE)
[2016-07-17 18:44] LABS: ANION GAP 6 mmol/L (8-16); CARBON DIOXIDE 31 mmol/L (22-29); CHLORIDE 98 mmol/L (98-107); CREATININE 0.85 mg/dL (0.60-1.30); GLOMERULAR FILTR. RATE CALC > 60 mL/min (>60); POTASSIUM 3.9 mmol/L (3.5-5.1); SODIUM SERUM 135 mmol/L (136-145); UREA NITROGEN, BLOOD 12 mg/dL (7-18)
[2016-07-17 18:47] LABS: LEUKOCYTE ESTERASE ,URINE TRACE (NEGATIVE)
[2016-07-17 18:48] LABS: RBC,URINE 0-2 /HPF (0-2); SQUAMOUS EPITHELIAL CELL,UR Moderate /LPF (None Seen); SULFOSALICYLIC ACID,URINE 1+ (Negative)
[2016-07-17 18:51] LABS: ALANINE AMINOTRANSFERASE 25 U/L (12-78); ALBUMIN 3.4 g/dL (3.4-5.0); ASPARTATE AMINOTRANSFERASE 12 U/L (15-37); BILIRUBIN,TOTAL 0.2 mg/dL (0.1-1.0); TOTAL PROTEIN, SERUM 7.6 g/dL (6.4-8.2)
[2016-07-17] MEDS ORDERED: BARIUM SULFATE 0.1% SUSPENSION 450 ML BOTTLE PO ONE (19:30)
[2016-07-17] MEDS ORDERED: KETOROLAC TROMETHAMINE 30 MG/ML VIAL IVP ONE (20:30)
[2016-07-17] MEDS ORDERED: LEVOFLOXACIN 500 MG/D5% WATER 100 ML IV ONE (21:15)
[2016-07-17 22:40] VITALS: BP 141/82
== END 2016-07-17 23:21 | disposition home or self-care (01) ==
LOC: EMS 17:27
DX: N39.0 Urinary tract infection, site not specified (principal); N83.209 Unspecified ovarian cyst, unspecified side; F41.9 Anxiety disorder, unspecified; F32.9 Major depressive disorder, single episode, unspecified; I10 Essential (primary) hypertension; E11.9 Type 2 diabetes mellitus without complications; F17.210 Nicotine dependence, cigarettes, uncomplicated; F12.10 Cannabis abuse, uncomplicated
CPT/HCPCS: 36415; 74176; 80053; 81001; 81002; 82962; 84703; 85025; 96365; 96375; 99285; J1885; J1956

== ENCOUNTER 2016-08-10 14:07 | Inpatient (IN) | payer MEDICAID ==
[~2016-08-10] VITALS: Ht 163.8 cm; Wt 112.4 kg
[2016-08-10 14:32] LABS: GLUCOSE,POINT OF CARE 258 MG/DL (70-110)
[2016-08-10 14:55] LABS: BASOPHILS % (AUTO) 0.2 % (0.0-2.0); EOSINOPHILS % (AUTO) 0.8 % (1.0-6.0); HEMATOCRIT 38.9 % (36-46); HEMOGLOBIN 13.3 g/dL (12.0-16.0); LYMPHOCYTES # (AUTO) 3.2 K/uL (1.0-4.8); LYMPHOCYTES % (AUTO) 31.7 % (22.0-44.0); MEAN CORPUSCULAR HEMOGLOBIN 29.9 pg (26.0-34.0); MEAN CORPUSCULAR HGB CONC 34.2 G/dL (31.0-37.0); MEAN CORPUSCULAR VOLUME 87 fL (80-100); MONOCYTES # (AUTO) 0.4 K/uL (0.1-1.0); MONOCYTES % (AUTO) 3.5 % (2.0-9.0); NEUTROPHILS # (AUTO) 6.4 K/uL (1.8-7.7); NEUTROPHILS % (AUTO) 63.8 % (40.0-70.0); PLATELET COUNT (AUTO) 325 K/uL (150-450); RED BLOOD CELL COUNT(AUTO) 4.45 MIL/uL (4.00-5.20); RED CELL DISTRIBUTION WIDTH 14.6 % (11.5-14.5)
[2016-08-10 14:56] LABS: ANION GAP 8 mmol/L (8-16); CALCIUM, TOTAL 8.8 mg/dL (8.8-10.5); CARBON DIOXIDE 26 mmol/L (22-29); CHLORIDE 100 mmol/L (98-107); CREATININE 0.82 mg/dL (0.60-1.30); GLOMERULAR FILTR. RATE CALC > 60 mL/min (>60); SODIUM SERUM 134 mmol/L (136-145); UREA NITROGEN, BLOOD 12 mg/dL (7-18)
[2016-08-10 15:02] LABS: ALANINE AMINOTRANSFERASE 32 U/L (12-78); ALBUMIN 3.7 g/dL (3.4-5.0); ASPARTATE AMINOTRANSFERASE 13 U/L (15-37); BILIRUBIN,TOTAL 0.3 mg/dL (0.1-1.0); TOTAL PROTEIN, SERUM 7.6 g/dL (6.4-8.2)
[2016-08-10 17:42] LABS: GLUCOSE,POINT OF CARE 200 MG/DL (70-110)
[2016-08-10] MEDS ORDERED: LORazepam 2 MG TABLET PO ONE (17:45)
[2016-08-10] MEDS ORDERED: HALOPERIDOL 5 MG TABLET PO ONE (17:45)
[2016-08-10] MEDS ORDERED: HALOPERIDOL 5 MG TABLET PO PRN (18:00)
[2016-08-10 18:38] LABS: CHOL/HDL RATIO 4.8 (3.9-5.7)
[2016-08-10] MEDS: LORazepam 2 MG TABLET PO PRN (21:43)
[2016-08-10] MEDS: ZOLPIDEM TARTRATE 10 MG TABLET PO PRN (21:43)
[2016-08-10 21:50] VITALS: BP 109/55
[2016-08-11 08:08] VITALS: BP 128/68
[2016-08-11] MEDS ORDERED: DEXTROSE 50%-WATER 25 GM/50 ML SYRINGE IVP PRN (14:00)
[2016-08-11 17:02] LABS: GLUCOSE,POINT OF CARE 249 MG/DL (70-110)
[2016-08-11] MEDS: INSULIN ASPART 100 UNITS/ML SQ PRN ×2 (17:19→21:48)
[2016-08-11] MEDS: MetFORMIN HCL 500 MG TABLET PO SCH (17:23)
[2016-08-11 17:57] VITALS: BP 122/64
[2016-08-11] MEDS: INSULIN DETEMIR 100 UNITS/ML SQ SCH (21:48)
[2016-08-11 21:52] LABS: GLUCOSE COMMENT 1 Received Meds; GLUCOSE,POINT OF CARE 232 MG/DL (70-110)
[2016-08-12 05:42] LABS: GLUCOSE,POINT OF CARE 176 MG/DL (70-110)
[2016-08-12] MEDS: MetFORMIN HCL 500 MG TABLET PO SCH ×2 (07:01→17:43)
[2016-08-12] MEDS: INSULIN ASPART 100 UNITS/ML SQ PRN ×4 (07:11→21:42)
[2016-08-12 08:02] VITALS: BP 104/58
[2016-08-12] MEDS: CHOLECALCIFEROL (VIT D3) 2,000 UNITS TABLET PO SCH (09:33)
[2016-08-12] MEDS: OMEPRAZOLE 20 MG CAPSULE PO SCH (09:33)
[2016-08-12 11:52] LABS: GLUCOSE,POINT OF CARE 199 MG/DL (70-110)
[2016-08-12 16:37] VITALS: BP 131/81
[2016-08-12 17:52] LABS: GLUCOSE COMMENT 1 FASTING; GLUCOSE,POINT OF CARE 178 MG/DL (70-110)
[2016-08-12] MEDS: ZOLPIDEM TARTRATE 10 MG TABLET PO PRN (21:00)
[2016-08-12] MEDS: LORazepam 2 MG TABLET PO PRN (21:00)
[2016-08-12 21:02] LABS: GLUCOSE COMMENT 1 Received Meds; GLUCOSE,POINT OF CARE 204 MG/DL (70-110)
[2016-08-12] MEDS: INSULIN DETEMIR 100 UNITS/ML SQ SCH (21:41)
[2016-08-13 06:28] LABS: GLUCOSE COMMENT 1 Juice/Food/D50 Given; GLUCOSE,POINT OF CARE 145 MG/DL (70-110)
[2016-08-13] MEDS: MetFORMIN HCL 500 MG TABLET PO SCH ×2 (07:04→17:15)
[2016-08-13] MEDS: INSULIN ASPART 100 UNITS/ML SQ PRN ×3 (07:17→21:57)
[2016-08-13 08:05] VITALS: BP 112/72
[2016-08-13] MEDS: CHOLECALCIFEROL (VIT D3) 2,000 UNITS TABLET PO SCH (10:11)
[2016-08-13] MEDS: OMEPRAZOLE 20 MG CAPSULE PO SCH (10:11)
[2016-08-13 12:07] LABS: GLUCOSE,POINT OF CARE 166 MG/DL (70-110)
[2016-08-13 17:22] LABS: GLUCOSE COMMENT 1 FASTING; GLUCOSE,POINT OF CARE 235 MG/DL (70-110)
[2016-08-13] MEDS: LORazepam 2 MG TABLET PO PRN (18:24)
[2016-08-13] MEDS: ZOLPIDEM TARTRATE 10 MG TABLET PO PRN (20:45)
[2016-08-13 20:51] LABS: GLUCOSE COMMENT 1 FASTING; GLUCOSE,POINT OF CARE 181 MG/DL (70-110)
[2016-08-13] MEDS: INSULIN DETEMIR 100 UNITS/ML SQ SCH (21:58)
[2016-08-14 05:27] LABS: GLUCOSE,POINT OF CARE 132 MG/DL (70-110)
[2016-08-14] MEDS: MetFORMIN HCL 500 MG TABLET PO SCH (06:37)
[2016-08-14 08:00] VITALS: BP 153/93
[2016-08-14] MEDS: CHOLECALCIFEROL (VIT D3) 2,000 UNITS TABLET PO SCH (11:31)
[2016-08-14] MEDS: OMEPRAZOLE 20 MG CAPSULE PO SCH (11:31)
[2016-08-14 11:57] LABS: GLUCOSE,POINT OF CARE 158 MG/DL (70-110)
[2016-08-14] MEDS: INSULIN ASPART 100 UNITS/ML SQ PRN (12:06)
[2016-08-14] MEDS ORDERED: VITAD1000 PO (13:38)
[2016-08-25] MEDS ORDERED: HALOPERIDOL DECANOATE 100 MG/ML VIAL IM SCH (09:00)
== END 2016-08-14 14:30 | disposition home or self-care (01) | DRG 750 ==
LOC: EMS 14:09 → 3EI 21:01
PROVIDERS: ADMIT Psychiatry & Neurology Psychiatry; ATTEND Psychiatry & Neurology Psychiatry
DX: F25.0 Schizoaffective disorder, bipolar type (principal); E11.65 Type 2 diabetes mellitus with hyperglycemia; I10 Essential (primary) hypertension; F12.10 Cannabis abuse, uncomplicated; J45.909 Unspecified asthma, uncomplicated; K21.9 Gastro-esophageal reflux disease without esophagitis; K59.00 Constipation, unspecified; E66.3 Overweight; F41.9 Anxiety disorder, unspecified; F17.210 Nicotine dependence, cigarettes, uncomplicated; Z71.6 Tobacco abuse counseling; Z79.84 Long term (current) use of oral hypoglycemic drugs; Z79.899 Other long term (current) drug therapy; Z88.0 Allergy status to penicillin; Z91.041 Radiographic dye allergy status; Z91.011 Allergy to milk products; Z98.891 History of uterine scar from previous surgery; Z71.51 Drug abuse counseling and surveillance of drug abuser; Z68.41 Body mass index [BMI] 40.0-44.9, adult
CPT/HCPCS: 82948; 82962; 99285; G0480

== ENCOUNTER 2016-08-22 18:47 | Emergency (ER) | payer MEDICAID ==
[~2016-08-22] VITALS: Ht 162.6 cm; Wt 90.9 kg
[~2016-08-22 18:47] MED LIST changes: -ALBU8HFA IH; -DSS100 PO; -HYDR25TA PO; -LOSA50TA37 PO; +VITAD1000 PO
[2016-08-22] MEDS ORDERED: LOSA50TA37 PO (19:02)
[2016-08-22] MEDS ORDERED: AMIT50TA3 PO (19:02)
[2016-08-22 19:12] VITALS: BP 145/92
[2016-08-22 19:17] LABS: GLUCOSE,POINT OF CARE 296 MG/DL (70-110)
== END 2016-08-22 19:59 | disposition left against medical advice (07) ==
LOC: EMS 18:50
DX: R44.0 Auditory hallucinations (principal); F31.9 Bipolar disorder, unspecified; F20.9 Schizophrenia, unspecified; E11.9 Type 2 diabetes mellitus without complications; I10 Essential (primary) hypertension; F41.9 Anxiety disorder, unspecified; F12.90 Cannabis use, unspecified, uncomplicated; F17.210 Nicotine dependence, cigarettes, uncomplicated; Z53.21 Procedure and treatment not carried out due to patient leaving prior to being seen by health care provider
CPT/HCPCS: 82962

== ENCOUNTER 2016-09-24 02:42 | Emergency (ER) | payer SELFPAY ==
[~2016-09-24] VITALS: Ht 165.1 cm; Wt 127.3 kg
[~2016-09-24 02:42] MED LIST changes: +AMIT50TA3 PO; -HALOD100I IM; -INSU100V12 SQ; +LOSA50TA37 PO; -VITAD1000 PO
[2016-09-24] MEDS ORDERED: INSNOV SQ (03:15)
[2016-09-24] MEDS ORDERED: HALO50VI4 IM (03:15)
[2016-09-24 03:53] LABS: APPEARANCE,URINE CLOUDY (CLEAR); GLUCOSE, URINE (UA) >=1000 mg/dL (NEGATIVE); KETONES,URINE NEGATIVE (NEGATIVE); LEUKOCYTE ESTERASE ,URINE NEGATIVE (NEGATIVE); OCCULT BLOOD,URINE TRACE (NEGATIVE); PH,URINE 7.5 (5.0-8.0); PROTEIN,URINE TRACE (NEGATIVE)
[2016-09-24 03:55] LABS: ADD UA MICROSCOPIC YES
[2016-09-24 04:01] LABS: BASOPHILS # (AUTO) 0.02 K/uL (0.00-0.20); BASOPHILS % (AUTO) 0.2 % (0.0-2.0); EOSINOPHILS # (AUTO) 0.09 K/uL (0.00-0.70); EOSINOPHILS % (AUTO) 0.86 % (1.0-6.0); HEMATOCRIT 41.5 % (36-46); HEMOGLOBIN 13.6 g/dL (12.0-16.0); LYMPHOCYTES # (AUTO) 3.1 K/uL (1.0-4.8); LYMPHOCYTES % (AUTO) 30.1 % (22.0-44.0); MEAN CORPUSCULAR HEMOGLOBIN 29.7 pg (26.0-34.0); MEAN CORPUSCULAR HGB CONC 32.8 G/dL (31.0-37.0); MEAN CORPUSCULAR VOLUME 91 fL (80-100); MONOCYTES # (AUTO) 0.5 K/uL (0.1-1.0); MONOCYTES % (AUTO) 5.1 % (2.0-9.0); NEUTROPHILS # (AUTO) 6.6 K/uL (1.8-7.7); NEUTROPHILS % (AUTO) 63.8 % (40.0-70.0); PLATELET COUNT (AUTO) 284 K/uL (150-450); RED BLOOD CELL COUNT(AUTO) 4.58 MIL/uL (4.00-5.20); RED CELL DISTRIBUTION WIDTH 14.6 % (11.5-14.5); WHITE BLOOD COUNT (AUTO) 10.4 K/uL (4.5-11.0)
[2016-09-24 04:13] LABS: ANION GAP 6 mmol/L (8-16); CALCIUM, TOTAL 9.3 mg/dL (8.8-10.5); CARBON DIOXIDE 31 mmol/L (22-29); CHLORIDE 100 mmol/L (98-107); CREATININE 0.83 mg/dL (0.60-1.30); GLOMERULAR FILTR. RATE CALC > 60 mL/min (>60); POTASSIUM 4.3 mmol/L (3.5-5.1); SODIUM SERUM 137 mmol/L (136-145); UREA NITROGEN, BLOOD 7 mg/dL (7-18)
[2016-09-24] MEDS ORDERED: INSULIN REGULAR, HUMAN 100 UNITS/ML IVP ONE (04:15)
[2016-09-24] MEDS ORDERED: SODIUM CHLORIDE 0.9% 1,000 ML IV ONE (04:15)
[2016-09-24] MEDS ORDERED: ONDANSETRON HCL 4 MG/2 ML VIAL IVP ONE (04:15)
[2016-09-24 04:18] LABS: SQUAMOUS EPITHELIAL CELL,UR Few /LPF (None Seen)
[2016-09-24 04:27] LABS: ALANINE AMINOTRANSFERASE 52 U/L (12-78); ALBUMIN 3.2 g/dL (3.4-5.0); ASPARTATE AMINOTRANSFERASE 21 U/L (15-37); BILIRUBIN,TOTAL 0.1 mg/dL (0.1-1.0); TOTAL PROTEIN, SERUM 7.1 g/dL (6.4-8.2)
[2016-09-24 04:57] LABS: GLUCOSE,POINT OF CARE 282 MG/DL (70-110)
[2016-09-24 06:37] VITALS: BP 132/76
[2016-09-24 06:43] LABS: GLUCOSE,POINT OF CARE 78 MG/DL (70-110)
== END 2016-09-24 06:44 | disposition home or self-care (01) ==
LOC: EMS 02:44
DX: R11.0 Nausea (principal); E11.65 Type 2 diabetes mellitus with hyperglycemia; F12.10 Cannabis abuse, uncomplicated; E11.9 Type 2 diabetes mellitus without complications; I10 Essential (primary) hypertension; F17.210 Nicotine dependence, cigarettes, uncomplicated; Z79.4 Long term (current) use of insulin; Z88.0 Allergy status to penicillin; Z88.8 Allergy status to other drugs, medicaments and biological substances; Z91.041 Radiographic dye allergy status
CPT/HCPCS: 36415; 80053; 80307; 81001; 82962; 83690; 84703; 85025; 96361; 96374; 96375; 99284; J1815; J2405; J7030

== ENCOUNTER 2016-09-26 08:14 | Emergency (ER) | payer SELFPAY ==
[~2016-09-26] VITALS: Ht 162.6 cm; Wt 110.4 kg
[~2016-09-26 08:14] MED LIST changes: +HALO50VI4 IM; +INSNOV SQ
[2016-09-26 08:27] LABS: GLUCOSE,POINT OF CARE 261 MG/DL (70-110)
[2016-09-26 09:15] VITALS: BP 140/80
[2016-09-26] MEDS ORDERED: LIDOCAINE HCL 1% 10 ML VIAL INJ ONE (10:00)
[2016-09-26] MEDS ORDERED: ACETAMINOPHEN 325 MG TABLET PO ONE (10:00)
== END 2016-09-26 10:55 | disposition home or self-care (01) ==
LOC: EMS 08:18
DX: S01.511A Laceration without foreign body of lip, initial encounter (principal); I10 Essential (primary) hypertension; E11.9 Type 2 diabetes mellitus without complications; F12.90 Cannabis use, unspecified, uncomplicated; F17.210 Nicotine dependence, cigarettes, uncomplicated; Z88.0 Allergy status to penicillin; Z88.8 Allergy status to other drugs, medicaments and biological substances; Z91.041 Radiographic dye allergy status; Z79.4 Long term (current) use of insulin; W45.8XXA Other foreign body or object entering through skin, initial encounter; Y93.89 Activity, other specified; Y92.89 Other specified places as the place of occurrence of the external cause; Y99.8 Other external cause status
CPT/HCPCS: 12011; 82962; 99283; J3490

== ENCOUNTER 2016-10-01 09:06 | Emergency (ER) | payer OTHER ==
[~2016-10-01] VITALS: Ht 162.6 cm; Wt 111.4 kg
[2016-10-01 09:35] VITALS: BP 152/75
[2016-10-01] MEDS ORDERED: ACETAMINOPHEN 325 MG TABLET PO ONE (10:45)
[2016-10-02 10:22] LABS: GLUCOSE,POINT OF CARE 36 MG/DL (70-110)
[2016-10-02 12:12] LABS: GLUCOSE,POINT OF CARE 74 MG/DL (70-110)
[2016-10-02 12:12] LABS: GLUCOSE,POINT OF CARE 50 MG/DL (70-110)
== END 2016-10-01 10:48 | disposition home or self-care (01) ==
LOC: EMS 09:10
DX: M72.2 Plantar fascial fibromatosis (principal); E11.649 Type 2 diabetes mellitus with hypoglycemia without coma; F25.9 Schizoaffective disorder, unspecified; F17.210 Nicotine dependence, cigarettes, uncomplicated; F12.90 Cannabis use, unspecified, uncomplicated; F31.9 Bipolar disorder, unspecified; F41.9 Anxiety disorder, unspecified; I10 Essential (primary) hypertension; Z88.0 Allergy status to penicillin; Z91.041 Radiographic dye allergy status; Z91.011 Allergy to milk products
CPT/HCPCS: 82962; 99284; 99406

== ENCOUNTER 2016-11-27 18:52 | Emergency (ER) | payer OTHER ==
[~2016-11-27] VITALS: Ht 162.6 cm; Wt 111.0 kg
[2016-11-27 19:38] VITALS: BP 124/99
[2016-11-27 20:23] LABS: GLUCOSE,POINT OF CARE 268 MG/DL (70-110)
== END 2016-11-27 21:18 | disposition left against medical advice (07) ==
LOC: EMS 18:55
DX: L02.416 Cutaneous abscess of left lower limb (principal); E11.9 Type 2 diabetes mellitus without complications; I10 Essential (primary) hypertension; F17.210 Nicotine dependence, cigarettes, uncomplicated; F12.90 Cannabis use, unspecified, uncomplicated; Z53.21 Procedure and treatment not carried out due to patient leaving prior to being seen by health care provider
CPT/HCPCS: 82962

== ENCOUNTER 2016-11-30 18:16 | Emergency (ER) | payer OTHER ==
[~2016-11-30] VITALS: Ht 162.6 cm; Wt 111.4 kg
[2016-11-30 18:20] VITALS: BP 160/109
[2016-11-30 18:40] LABS: APPEARANCE,URINE CLEAR (CLEAR); GLUCOSE, URINE (UA) >=1000 mg/dL (NEGATIVE); KETONES,URINE NEGATIVE (NEGATIVE); LEUKOCYTE ESTERASE ,URINE TRACE (NEGATIVE); OCCULT BLOOD,URINE NEGATIVE (NEGATIVE); PROTEIN,URINE NEGATIVE (NEGATIVE)
[2016-11-30 18:41] LABS: ADD UA MICROSCOPIC YES
[2016-11-30 19:19] LABS: SQUAMOUS EPITHELIAL CELL,UR Few /LPF (None Seen)
[2016-11-30 19:20] LABS: RBC,URINE 0-2 /HPF (0-2); URINALYSIS COMMENT Rare Trich. seen.
== END 2016-11-30 19:28 | disposition left against medical advice (07) ==
LOC: EMS 18:19
DX: L02.415 Cutaneous abscess of right lower limb (principal); E11.65 Type 2 diabetes mellitus with hyperglycemia; I10 Essential (primary) hypertension; F17.210 Nicotine dependence, cigarettes, uncomplicated; F12.90 Cannabis use, unspecified, uncomplicated; Z88.0 Allergy status to penicillin; Z91.041 Radiographic dye allergy status; Z91.011 Allergy to milk products; Z79.4 Long term (current) use of insulin
CPT/HCPCS: 82962; 99283

== ENCOUNTER 2016-12-13 14:57 | Inpatient (IN) | payer MEDICAID, OTHER ==
[~2016-12-13] VITALS: Ht 162.6 cm; Wt 110.9 kg
[2016-12-13 16:59] LABS: BASOPHILS # (AUTO) 0.04 K/uL (0.00-0.20); BASOPHILS % (AUTO) 0.3 % (0.0-2.0); EOSINOPHILS % (AUTO) 1.61 % (1.0-6.0); HEMATOCRIT 36.3 % (36-46); HEMOGLOBIN 11.8 g/dL (12.0-16.0); LYMPHOCYTES # (AUTO) 2.8 K/uL (1.0-4.8); LYMPHOCYTES % (AUTO) 22.1 % (22.0-44.0); MEAN CORPUSCULAR HEMOGLOBIN 28.2 pg (26.0-34.0); MEAN CORPUSCULAR HGB CONC 32.4 G/dL (31.0-37.0); MEAN CORPUSCULAR VOLUME 87 fL (80-100); MONOCYTES # (AUTO) 0.7 K/uL (0.1-1.0); MONOCYTES % (AUTO) 5.9 % (2.0-9.0); NEUTROPHILS # (AUTO) 8.9 K/uL (1.8-7.7); NEUTROPHILS % (AUTO) 70.2 % (40.0-70.0); PLATELET COUNT (AUTO) 344 K/uL (150-450); RED BLOOD CELL COUNT(AUTO) 4.17 MIL/uL (4.00-5.20); RED CELL DISTRIBUTION WIDTH 14.5 % (11.5-14.5); WHITE BLOOD COUNT (AUTO) 12.6 K/uL (4.5-11.0)
[2016-12-13 17:11] LABS: ANION GAP 5 mmol/L (8-16); CALCIUM, TOTAL 8.7 mg/dL (8.8-10.5); CARBON DIOXIDE 28 mmol/L (22-29); CHLORIDE 104 mmol/L (98-107); CREATININE 0.78 mg/dL (0.60-1.30); GLOMERULAR FILTR. RATE CALC > 60 mL/min (>60); POTASSIUM 4.5 mmol/L (3.5-5.1); SODIUM SERUM 137 mmol/L (136-145); UREA NITROGEN, BLOOD 11 mg/dL (7-18)
[2016-12-13 17:17] LABS: ALANINE AMINOTRANSFERASE 28 U/L (12-78); ALBUMIN 3.1 g/dL (3.4-5.0); ASPARTATE AMINOTRANSFERASE 21 U/L (15-37)
[2016-12-13 17:45] LABS: BILIRUBIN,TOTAL < 0.1 mg/dL (0.1-1.0)
[2016-12-13] MEDS ORDERED: HALOPERIDOL 5 MG TABLET PO PRN (17:45)
[2016-12-13] MEDS ORDERED: MetFORMIN HCL 500 MG TABLET PO ONE (18:45)
[2016-12-13 19:32] LABS: GLUCOSE COMMENT 1 Doctor Notified; GLUCOSE,POINT OF CARE 206 MG/DL (70-110)
[2016-12-13 20:47] VITALS: BP 122/76
[2016-12-13 20:48] LABS: GLUCOSE,POINT OF CARE 167 MG/DL (70-110)
[2016-12-13] MEDS: LORazepam 2 MG TABLET PO PRN (20:49)
[2016-12-13] MEDS ORDERED: PNEUMOCOCCAL VACCINE POLYVALENT 0.5 ML VIAL [PPSV23] IM ONE (21:00)
[2016-12-13] MEDS ORDERED: INFLUENZA VIRUS VACCINE QVS 2017-18 (3YR+)/PF 60 MCG/0.5 ML SYRINGE IM ONE (21:00)
[2016-12-14 07:04] VITALS: BP 112/76
[2016-12-14] MEDS ORDERED: BACITRACIN 28.4 GM OINTMENT TP PRN (07:15)
[2016-12-14] MEDS ORDERED: BENZOCAINE/MENTHOL LOZENGE MM PRN (07:15)
[2016-12-14] MEDS ORDERED: ALBUTEROL SULFATE HFA 90 MCG/PUFF 8 GM INHALER IH PRN (07:15)
[2016-12-14] MEDS ORDERED: ONDANSETRON HCL 4 MG TABLET PO PRN (07:15)
[2016-12-14] MEDS ORDERED: MAG HYDROX/AL HYDROX/SIMETH ES 30 ML SUSPENSION UDCUP PO PRN (07:15)
[2016-12-14] MEDS ORDERED: MAGNESIUM HYDROXIDE SUSPENSION 30 ML UDCUP PO PRN (07:15)
[2016-12-14] MEDS ORDERED: CloNIDine HCL 0.1 MG TABLET PO PRN (07:15)
[2016-12-14] MEDS ORDERED: ACETAMINOPHEN 325 MG TABLET PO PRN (07:15)
[2016-12-14] MEDS ORDERED: PETROLATUM,WHITE 71 GM JELLY TP PRN (07:15)
[2016-12-14] MEDS ORDERED: GLUCAGON,HUMAN RECOMBINANT 1 MG VIAL IM PRN (07:15)
[2016-12-14 08:00] VITALS: BP 137/74
[2016-12-14] MEDS ORDERED: LOPERAMIDE HCL 2 MG CAPSULE PO PRN (08:00)
[2016-12-14] MEDS: MUPIROCIN CALCIUM 2% 15 GM CREAM TP SCH ×2 (08:01→16:42)
[2016-12-14] MEDS: LOPERAMIDE HCL 2 MG CAPSULE PO PRN ×2 (08:01→13:02)
[2016-12-14] MEDS: CHOLECALCIFEROL (VIT D3) 1,000 UNITS TABLET PO SCH (08:01)
[2016-12-14] MEDS: CIPROFLOXACIN HCL 500 MG TABLET PO SCH ×2 (08:01→16:41)
[2016-12-14 08:20] LABS: CHOL/HDL RATIO 3.1 (3.9-5.7)
[2016-12-14 16:39] LABS: GLUCOSE,POINT OF CARE 131 MG/DL (70-110)
[2016-12-14] MEDS: MetFORMIN HCL 500 MG TABLET PO SCH (16:41)
[2016-12-14 16:48] VITALS: BP 118/68
[2016-12-14] MEDS: IBUPROFEN 600 MG TABLET PO PRN (16:48)
[2016-12-14] MEDS: INSULIN ASPART 100 UNITS/ML SQ PRN (20:32)
[2016-12-14 20:38] LABS: GLUCOSE COMMENT 1 Received Meds; GLUCOSE,POINT OF CARE 183 MG/DL (70-110)
[2016-12-15] MEDS: INSULIN ASPART 100 UNITS/ML SQ PRN ×4 (06:54→20:19)
[2016-12-15] MEDS: MetFORMIN HCL 500 MG TABLET PO SCH ×2 (06:56→16:52)
[2016-12-15 07:00] LABS: GLUCOSE,POINT OF CARE 159 MG/DL (70-110)
[2016-12-15 09:00] VITALS: BP 103/61
[2016-12-15] MEDS: CHOLECALCIFEROL (VIT D3) 1,000 UNITS TABLET PO SCH (09:05)
[2016-12-15] MEDS: MUPIROCIN CALCIUM 2% 15 GM CREAM TP SCH ×2 (09:05→16:52)
[2016-12-15] MEDS: CIPROFLOXACIN HCL 500 MG TABLET PO SCH ×2 (09:05→16:52)
[2016-12-15 11:12] LABS: GLUCOSE,POINT OF CARE 178 MG/DL (70-110)
[2016-12-15] MEDS: SULFAMETHOX/TRIMETH DS 800-160 MG/TABLET PO SCH ×2 (13:35→20:17)
[2016-12-15 14:08] VITALS: BP 118/72
[2016-12-15] MEDS: IBUPROFEN 600 MG TABLET PO PRN ×2 (14:09→21:28)
[2016-12-15 15:08] VITALS: BP 115/75
[2016-12-15 16:29] VITALS: BP 104/72
[2016-12-15 16:31] LABS: GLUCOSE COMMENT 1 Received Meds; GLUCOSE,POINT OF CARE 169 MG/DL (70-110)
[2016-12-15] MEDS: LORazepam 2 MG TABLET PO PRN ×2 (16:44→21:28)
[2016-12-15 20:23] LABS: GLUCOSE,POINT OF CARE 177 MG/DL (70-110)
[2016-12-15 21:28] VITALS: BP 115/68
[2016-12-16 06:38] VITALS: BP 112/60
[2016-12-16] MEDS: MetFORMIN HCL 500 MG TABLET PO SCH ×2 (06:43→16:27)
[2016-12-16 06:52] LABS: GLUCOSE COMMENT 1 Received Meds; GLUCOSE,POINT OF CARE 131 MG/DL (70-110)
[2016-12-16] MEDS: CHOLECALCIFEROL (VIT D3) 1,000 UNITS TABLET PO SCH (08:42)
[2016-12-16] MEDS: SULFAMETHOX/TRIMETH DS 800-160 MG/TABLET PO SCH ×2 (08:42→20:09)
[2016-12-16] MEDS: CIPROFLOXACIN HCL 500 MG TABLET PO SCH ×2 (08:42→16:27)
[2016-12-16] MEDS: MUPIROCIN CALCIUM 2% 15 GM CREAM TP SCH ×2 (10:47→16:39)
[2016-12-16] MEDS: INSULIN ASPART 100 UNITS/ML SQ PRN ×3 (11:37→20:09)
[2016-12-16 11:38] LABS: GLUCOSE COMMENT 1 Received Meds; GLUCOSE,POINT OF CARE 200 MG/DL (70-110)
[2016-12-16 16:27] LABS: GLUCOSE COMMENT 1 Received Meds; GLUCOSE,POINT OF CARE 250 MG/DL (70-110)
[2016-12-16] MEDS: IBUPROFEN 600 MG TABLET PO PRN (16:27)
[2016-12-16] MEDS: LORazepam 2 MG TABLET PO PRN ×2 (16:27→20:56)
[2016-12-16 16:31] VITALS: BP 120/70
[2016-12-16 17:27] VITALS: BP 118/68
[2016-12-16 20:18] LABS: GLUCOSE COMMENT 1 Received Meds; GLUCOSE,POINT OF CARE 165 MG/DL (70-110)
[2016-12-17] VITALS: BP 133/81
[2016-12-17 06:07] LABS: GLUCOSE,POINT OF CARE 114 MG/DL (70-110)
[2016-12-17] MEDS: MetFORMIN HCL 500 MG TABLET PO SCH ×2 (06:10→16:29)
[2016-12-17 08:17] VITALS: BP 120/74
[2016-12-17] MEDS: MUPIROCIN CALCIUM 2% 15 GM CREAM TP SCH ×2 (08:36→16:55)
[2016-12-17] MEDS: CIPROFLOXACIN HCL 500 MG TABLET PO SCH ×2 (08:36→16:28)
[2016-12-17] MEDS: CHOLECALCIFEROL (VIT D3) 1,000 UNITS TABLET PO SCH (08:36)
[2016-12-17] MEDS: SULFAMETHOX/TRIMETH DS 800-160 MG/TABLET PO SCH ×2 (08:36→20:22)
[2016-12-17 10:20] LABS: APPEARANCE,URINE CLEAR (CLEAR); GLUCOSE, URINE (UA) NEGATIVE (NEGATIVE); KETONES,URINE NEGATIVE (NEGATIVE); LEUKOCYTE ESTERASE ,URINE NEGATIVE (NEGATIVE); OCCULT BLOOD,URINE NEGATIVE (NEGATIVE); PH,URINE 6.5 (5.0-8.0); PROTEIN,URINE POS 1+ (NEGATIVE)
[2016-12-17 10:25] LABS: ADD UA MICROSCOPIC NO
[2016-12-17] MEDS: INSULIN ASPART 100 UNITS/ML SQ PRN ×3 (11:26→20:25)
[2016-12-17 11:33] LABS: GLUCOSE,POINT OF CARE 170 MG/DL (70-110)
[2016-12-17] MEDS: LORazepam 2 MG TABLET PO PRN ×2 (13:40→20:08)
[2016-12-17 16:09] VITALS: BP 110/68
[2016-12-17] MEDS: IBUPROFEN 600 MG TABLET PO PRN (16:29)
[2016-12-17 16:33] LABS: GLUCOSE COMMENT 1 Received Meds; GLUCOSE,POINT OF CARE 223 MG/DL (70-110)
[2016-12-17 17:29] VITALS: BP 121/72
[2016-12-17 20:12] LABS: GLUCOSE COMMENT 1 Received Meds; GLUCOSE,POINT OF CARE 214 MG/DL (70-110)
[2016-12-18 06:22] LABS: GLUCOSE COMMENT 1 Received Meds; GLUCOSE,POINT OF CARE 135 MG/DL (70-110)
[2016-12-18] MEDS: MetFORMIN HCL 500 MG TABLET PO SCH (06:35)
[2016-12-18 06:54] VITALS: BP 127/74
[2016-12-18 08:18] VITALS: BP 108/58
[2016-12-18] MEDS: MUPIROCIN CALCIUM 2% 15 GM CREAM TP SCH (08:52)
[2016-12-18] MEDS: CHOLECALCIFEROL (VIT D3) 1,000 UNITS TABLET PO SCH (08:52)
[2016-12-18] MEDS: CIPROFLOXACIN HCL 500 MG TABLET PO SCH (08:52)
[2016-12-18] MEDS: SULFAMETHOX/TRIMETH DS 800-160 MG/TABLET PO SCH (08:52)
[2016-12-18 11:27] LABS: GLUCOSE,POINT OF CARE 170 MG/DL (70-110)
[2016-12-18] MEDS: IBUPROFEN 600 MG TABLET PO PRN (11:27)
[2016-12-18 11:30] VITALS: BP 116/63
[2016-12-18] MEDS: INSULIN ASPART 100 UNITS/ML SQ PRN (11:30)
[2016-12-18] MEDS: LORazepam 2 MG TABLET PO PRN (14:10)
[2016-12-18 16:10] VITALS: BP 111/64
[2016-12-18] MEDS ORDERED: PALI234D IM (16:53)
[2016-12-18] MEDS ORDERED: SULF1TAB42 PO (16:57)
[2017-01-13] MEDS ORDERED: HALOPERIDOL DECANOATE 100 MG/ML VIAL IM SCH (17:00)
== END 2016-12-18 17:45 | disposition home or self-care (01) | DRG 750 ==
LOC: EEVIPCON 14:59 → EMS 14:59 → B3A 18:21
PROVIDERS: ADMIT Psychiatry & Neurology Psychiatry; ATTEND Psychiatry & Neurology Psychiatry
PROC: 3E0234Z Introduction of Serum, Toxoid and Vaccine into Muscle, Percutaneous Approach (ICD-10-PCS; principal; 2016-12-13)
DX: F25.9 Schizoaffective disorder, unspecified (principal); E11.65 Type 2 diabetes mellitus with hyperglycemia; R45.851 Suicidal ideations; I10 Essential (primary) hypertension; D72.829 Elevated white blood cell count, unspecified; E55.9 Vitamin D deficiency, unspecified; E66.01 Morbid (severe) obesity due to excess calories; F12.10 Cannabis abuse, uncomplicated; Z71.51 Drug abuse counseling and surveillance of drug abuser; F15.10 Other stimulant abuse, uncomplicated; F22 Delusional disorders; F31.9 Bipolar disorder, unspecified; G47.00 Insomnia, unspecified; L08.9 Local infection of the skin and subcutaneous tissue, unspecified; Z87.891 Personal history of nicotine dependence; Z88.0 Allergy status to penicillin; Z68.41 Body mass index [BMI] 40.0-44.9, adult; Z23 Encounter for immunization
CPT/HCPCS: 82962; 87081; 90471; 99285; G0480

== ENCOUNTER 2017-01-09 14:32 | Inpatient (IN) | payer MEDICAID, OTHER ==
[~2017-01-09] VITALS: Ht 160 cm; Wt 108.9 kg
[~2017-01-09 14:32] MED LIST changes: -AMIT50TA3 PO; -HALO50VI4 IM; -INSNOV SQ; -LOSA50TA37 PO; -OMEP20 PO; +PALI234D IM; +SULF1TAB42 PO
[2017-01-09] MEDS ORDERED: INSNOV SQ (14:38)
[2017-01-09] MEDS ORDERED: DiphenhydrAMINE HCL 50 MG/ML VIAL IM ONE (16:30)
[2017-01-09] MEDS ORDERED: HALOPERIDOL LACTATE 5 MG/ML VIAL IM ONE (16:30)
[2017-01-09] MEDS ORDERED: LORazepam 2 MG/ML VIAL IM ONE (16:30)
[2017-01-09 16:52] LABS: BASOPHILS # (AUTO) 0.05 K/uL (0.00-0.20); BASOPHILS % (AUTO) 0.4 % (0.0-2.0); EOSINOPHILS % (AUTO) 1.81 % (1.0-6.0); HEMOGLOBIN 12.3 g/dL (12.0-16.0); LYMPHOCYTES # (AUTO) 3.2 K/uL (1.0-4.8); LYMPHOCYTES % (AUTO) 29.8 % (22.0-44.0); MEAN CORPUSCULAR HEMOGLOBIN 27.4 pg (26.0-34.0); MEAN CORPUSCULAR HGB CONC 32.4 G/dL (31.0-37.0); MEAN CORPUSCULAR VOLUME 85 fL (80-100); MONOCYTES # (AUTO) 0.5 K/uL (0.1-1.0); NEUTROPHILS # (AUTO) 6.8 K/uL (1.8-7.7); PLATELET COUNT (AUTO) 325 K/uL (150-450); RED BLOOD CELL COUNT(AUTO) 4.49 MIL/uL (4.00-5.20); RED CELL DISTRIBUTION WIDTH 15.3 % (11.5-14.5); WHITE BLOOD COUNT (AUTO) 10.8 K/uL (4.5-11.0)
[2017-01-09 16:53] LABS: ANION GAP 11 mmol/L (8-16); CALCIUM, TOTAL 8.8 mg/dL (8.8-10.5); CARBON DIOXIDE 25 mmol/L (22-29); CHLORIDE 99 mmol/L (98-107); CREATININE 0.86 mg/dL (0.60-1.30); GLOMERULAR FILTR. RATE CALC > 60 mL/min (>60); POTASSIUM 4.3 mmol/L (3.5-5.1); SODIUM SERUM 135 mmol/L (136-145); UREA NITROGEN, BLOOD 14 mg/dL (7-18)
[2017-01-09 16:58] LABS: ALANINE AMINOTRANSFERASE 30 U/L (12-78); ALBUMIN 3.4 g/dL (3.4-5.0); ASPARTATE AMINOTRANSFERASE 22 U/L (15-37); BILIRUBIN,TOTAL 0.3 mg/dL (0.1-1.0); TOTAL PROTEIN, SERUM 7.7 g/dL (6.4-8.2)
[2017-01-09] MEDS ORDERED: ZOLPIDEM TARTRATE 10 MG TABLET PO PRN (17:00)
[2017-01-09] MEDS ORDERED: HALOPERIDOL 5 MG TABLET PO PRN (17:00)
[2017-01-09 19:11] VITALS: BP 142/93
[2017-01-09 20:02] VITALS: BP 130/78
[2017-01-09] MEDS: LORazepam 2 MG TABLET PO PRN (20:43)
[2017-01-09] MEDS: BENZTROPINE MESYLATE 1 MG TABLET PO SCH (20:43)
[2017-01-09 21:55] LABS: GLUCOSE,POINT OF CARE 178 MG/DL (70-110)
[2017-01-09] MEDS: HALOPERIDOL 10 MG TABLET PO SCH (22:27)
[2017-01-09] MEDS: AMITRIPTYLINE HCL 50 MG TABLET PO SCH (22:28)
[2017-01-10 06:30] VITALS: BP 133/92
[2017-01-10] MEDS ORDERED: LOPERAMIDE HCL 2 MG CAPSULE PO PRN (09:45)
[2017-01-10] MEDS ORDERED: BENZOCAINE/MENTHOL LOZENGE MM PRN (09:45)
[2017-01-10] MEDS ORDERED: MAGNESIUM HYDROXIDE SUSPENSION 30 ML UDCUP PO PRN (09:45)
[2017-01-10] MEDS ORDERED: IBUPROFEN 600 MG TABLET PO PRN (09:45)
[2017-01-10] MEDS ORDERED: GLUCAGON,HUMAN RECOMBINANT 1 MG VIAL IM PRN (09:45)
[2017-01-10] MEDS ORDERED: BACITRACIN 28.4 GM OINTMENT TP PRN (09:45)
[2017-01-10] MEDS ORDERED: MAG HYDROX/AL HYDROX/SIMETH ES 30 ML SUSPENSION UDCUP PO PRN (09:45)
[2017-01-10] MEDS ORDERED: CloNIDine HCL 0.1 MG TABLET PO PRN (09:45)
[2017-01-10] MEDS ORDERED: ALBUTEROL SULFATE HFA 90 MCG/PUFF 8 GM INHALER IH PRN (09:45)
[2017-01-10] MEDS ORDERED: PETROLATUM,WHITE 71 GM JELLY TP PRN (09:45)
[2017-01-10] MEDS ORDERED: ONDANSETRON HCL 4 MG TABLET PO PRN (09:45)
[2017-01-10] MEDS ORDERED: ACETAMINOPHEN 325 MG TABLET PO PRN (09:45)
[2017-01-10] MEDS: BENZTROPINE MESYLATE 1 MG TABLET PO SCH ×2 (11:03→16:31)
[2017-01-10] MEDS: AMITRIPTYLINE HCL 50 MG TABLET PO SCH ×2 (11:04→16:31)
[2017-01-10 15:13] LABS: GLUCOSE COMMENT 1 Received Meds; GLUCOSE,POINT OF CARE 227 MG/DL (70-110)
[2017-01-10 16:21] VITALS: BP 120/63
[2017-01-10] MEDS: LORazepam 2 MG TABLET PO PRN (16:35)
[2017-01-10] MEDS: MetFORMIN HCL 500 MG TABLET PO SCH (16:36)
[2017-01-10] MEDS: INSULIN ASPART 100 UNITS/ML SQ PRN ×2 (16:39→20:48)
[2017-01-10 16:43] LABS: GLUCOSE COMMENT 1 Received Meds; GLUCOSE,POINT OF CARE 198 MG/DL (70-110)
[2017-01-10] MEDS: HALOPERIDOL 10 MG TABLET PO SCH (20:21)
[2017-01-10 20:52] LABS: GLUCOSE COMMENT 1 Received Meds; GLUCOSE,POINT OF CARE 144 MG/DL (70-110)
[2017-01-11 06:42] VITALS: BP 118/71
[2017-01-11 06:42] LABS: GLUCOSE COMMENT 1 Received Meds; GLUCOSE,POINT OF CARE 137 MG/DL (70-110)
[2017-01-11] MEDS: MetFORMIN HCL 500 MG TABLET PO SCH ×2 (06:45→16:36)
[2017-01-11 08:30] VITALS: BP 129/74
[2017-01-11] MEDS: CHOLECALCIFEROL (VIT D3) 1,000 UNITS TABLET PO SCH (09:00)
[2017-01-11] MEDS: BENZTROPINE MESYLATE 1 MG TABLET PO SCH ×2 (09:00→16:10)
[2017-01-11] MEDS: AMITRIPTYLINE HCL 50 MG TABLET PO SCH ×2 (09:00→16:10)
[2017-01-11] MEDS: LISINOPRIL 5 MG TABLET PO SCH (09:01)
[2017-01-11] MEDS: INSULIN ASPART 100 UNITS/ML SQ PRN ×2 (11:31→16:34)
[2017-01-11 11:37] LABS: GLUCOSE COMMENT 1 Received Meds; GLUCOSE,POINT OF CARE 155 MG/DL (70-110)
[2017-01-11 16:10] VITALS: BP 126/84
[2017-01-11] MEDS: LORazepam 2 MG TABLET PO PRN (16:14)
[2017-01-11 16:30] LABS: GLUCOSE COMMENT 1 Received Meds; GLUCOSE,POINT OF CARE 189 MG/DL (70-110)
[2017-01-11] MEDS: HALOPERIDOL 10 MG TABLET PO SCH (20:35)
[2017-01-11 21:00] LABS: GLUCOSE,POINT OF CARE 115 MG/DL (70-110)
[2017-01-12 06:37] VITALS: BP 118/72
[2017-01-12 06:43] LABS: GLUCOSE,POINT OF CARE 142 MG/DL (70-110)
[2017-01-12] MEDS: MetFORMIN HCL 500 MG TABLET PO SCH ×2 (06:45→16:28)
[2017-01-12] MEDS: INSULIN ASPART 100 UNITS/ML SQ PRN ×2 (06:46→16:31)
[2017-01-12] MEDS: CHOLECALCIFEROL (VIT D3) 1,000 UNITS TABLET PO SCH (08:31)
[2017-01-12] MEDS: BENZTROPINE MESYLATE 1 MG TABLET PO SCH ×2 (08:31→16:10)
[2017-01-12] MEDS: LISINOPRIL 5 MG TABLET PO SCH (08:31)
[2017-01-12 08:36] VITALS: BP 135/68
[2017-01-12] MEDS: AMITRIPTYLINE HCL 50 MG TABLET PO SCH ×2 (08:40→16:10)
[2017-01-12 11:34] LABS: GLUCOSE,POINT OF CARE 128 MG/DL (70-110)
[2017-01-12 16:00] VITALS: BP 129/77
[2017-01-12 16:32] LABS: GLUCOSE COMMENT 1 Received Meds; GLUCOSE,POINT OF CARE 141 MG/DL (70-110)
[2017-01-12 20:02] LABS: GLUCOSE,POINT OF CARE 129 MG/DL (70-110)
[2017-01-12] MEDS: HALOPERIDOL 10 MG TABLET PO SCH (20:17)
[2017-01-13 06:13] LABS: GLUCOSE COMMENT 1 Received Meds; GLUCOSE,POINT OF CARE 112 MG/DL (70-110)
[2017-01-13 06:38] VITALS: BP 100/60
[2017-01-13] MEDS: MetFORMIN HCL 500 MG TABLET PO SCH ×2 (06:48→17:07)
[2017-01-13] MEDS: AMITRIPTYLINE HCL 50 MG TABLET PO SCH ×2 (08:27→20:43)
[2017-01-13] MEDS: BENZTROPINE MESYLATE 1 MG TABLET PO SCH ×2 (08:28→17:07)
[2017-01-13] MEDS: CHOLECALCIFEROL (VIT D3) 1,000 UNITS TABLET PO SCH (08:31)
[2017-01-13 08:58] VITALS: BP 108/52
[2017-01-13 09:20] VITALS: BP 129/68
[2017-01-13] MEDS: LISINOPRIL 5 MG TABLET PO SCH (09:29)
[2017-01-13 11:43] LABS: GLUCOSE,POINT OF CARE 134 MG/DL (70-110)
[2017-01-13 16:22] VITALS: BP 120/75
[2017-01-13 16:54] LABS: GLUCOSE,POINT OF CARE 126 MG/DL (70-110)
[2017-01-13] MEDS: LORazepam 2 MG TABLET PO PRN (17:35)
[2017-01-13 19:58] LABS: GLUCOSE,POINT OF CARE 170 MG/DL (70-110)
[2017-01-13] MEDS: HALOPERIDOL 10 MG TABLET PO SCH (20:44)
[2017-01-13] MEDS: INSULIN ASPART 100 UNITS/ML SQ PRN (20:45)
[2017-01-14] MEDS: MetFORMIN HCL 500 MG TABLET PO SCH ×2 (06:22→16:17)
[2017-01-14 06:29] LABS: GLUCOSE COMMENT 1 Received Meds; GLUCOSE,POINT OF CARE 150 MG/DL (70-110)
[2017-01-14] MEDS: INSULIN ASPART 100 UNITS/ML SQ PRN ×3 (06:30→20:48)
[2017-01-14 06:35] VITALS: BP 118/78
[2017-01-14] MEDS: LISINOPRIL 5 MG TABLET PO SCH (08:12)
[2017-01-14] MEDS: BENZTROPINE MESYLATE 1 MG TABLET PO SCH ×2 (08:12→16:17)
[2017-01-14] MEDS: CHOLECALCIFEROL (VIT D3) 1,000 UNITS TABLET PO SCH (08:12)
[2017-01-14] MEDS: LORazepam 2 MG TABLET PO PRN (08:25)
[2017-01-14 09:25] VITALS: BP 121/72
[2017-01-14 11:43] LABS: GLUCOSE,POINT OF CARE 134 MG/DL (70-110)
[2017-01-14 16:00] VITALS: BP 117/83
[2017-01-14 16:08] LABS: GLUCOSE,POINT OF CARE 154 MG/DL (70-110)
[2017-01-14] MEDS: HALOPERIDOL 10 MG TABLET PO SCH (20:30)
[2017-01-14] MEDS: AMITRIPTYLINE HCL 50 MG TABLET PO SCH (20:30)
[2017-01-14 20:48] LABS: GLUCOSE,POINT OF CARE 141 MG/DL (70-110)
[2017-01-15] MEDS: MetFORMIN HCL 500 MG TABLET PO SCH ×2 (06:34→16:34)
[2017-01-15 06:57] LABS: GLUCOSE,POINT OF CARE 114 MG/DL (70-110)
[2017-01-15] MEDS: CHOLECALCIFEROL (VIT D3) 1,000 UNITS TABLET PO SCH (08:34)
[2017-01-15] MEDS: LISINOPRIL 5 MG TABLET PO SCH (08:34)
[2017-01-15] MEDS: BENZTROPINE MESYLATE 1 MG TABLET PO SCH ×2 (08:34→16:34)
[2017-01-15 12:17] LABS: GLUCOSE,POINT OF CARE 117 MG/DL (70-110)
[2017-01-15 16:30] VITALS: BP 130/74
[2017-01-15 16:32] LABS: GLUCOSE,POINT OF CARE 123 MG/DL (70-110)
[2017-01-15] MEDS: LORazepam 2 MG TABLET PO PRN (16:55)
[2017-01-15 20:17] LABS: GLUCOSE,POINT OF CARE 128 MG/DL (70-110)
[2017-01-15] MEDS: AMITRIPTYLINE HCL 50 MG TABLET PO SCH (20:21)
[2017-01-15] MEDS: HALOPERIDOL 10 MG TABLET PO SCH (20:21)
[2017-01-16 03:05] VITALS: BP 133/81
[2017-01-16 06:23] LABS: GLUCOSE,POINT OF CARE 125 MG/DL (70-110)
[2017-01-16] MEDS: MetFORMIN HCL 500 MG TABLET PO SCH (06:56)
[2017-01-16 08:07] VITALS: BP 106/50
[2017-01-16] MEDS: BENZTROPINE MESYLATE 1 MG TABLET PO SCH (09:45)
[2017-01-16] MEDS: CHOLECALCIFEROL (VIT D3) 1,000 UNITS TABLET PO SCH (09:45)
[2017-01-16] MEDS: LISINOPRIL 5 MG TABLET PO SCH (09:45)
[2017-01-16 11:48] LABS: GLUCOSE,POINT OF CARE 134 MG/DL (70-110)
[2017-01-16] MEDS ORDERED: AMIT50TA3 PO (12:29)
[2017-01-16] MEDS ORDERED: HALO10 PO (12:29)
[2017-01-16] MEDS ORDERED: BENZ1TAB10 PO (12:29)
[2017-01-16] MEDS ORDERED: LISI-660 PO (12:29)
== END 2017-01-16 16:15 | disposition home or self-care (01) | DRG 750 ==
LOC: EMS 14:33 → B3A 17:48
PROVIDERS: ATTEND Psychiatry & Neurology Psychiatry
DX: F25.0 Schizoaffective disorder, bipolar type (principal); E11.65 Type 2 diabetes mellitus with hyperglycemia; R45.851 Suicidal ideations; I10 Essential (primary) hypertension; E55.9 Vitamin D deficiency, unspecified; E66.01 Morbid (severe) obesity due to excess calories; F17.200 Nicotine dependence, unspecified, uncomplicated; G47.00 Insomnia, unspecified; K59.00 Constipation, unspecified; Z79.899 Other long term (current) drug therapy; M54.5 Low back pain; Z56.0 Unemployment, unspecified; F12.10 Cannabis abuse, uncomplicated; F15.10 Other stimulant abuse, uncomplicated; Z71.51 Drug abuse counseling and surveillance of drug abuser; Z71.6 Tobacco abuse counseling; Z88.0 Allergy status to penicillin; Z88.8 Allergy status to other drugs, medicaments and biological substances; Z91.041 Radiographic dye allergy status; Z68.41 Body mass index [BMI] 40.0-44.9, adult
CPT/HCPCS: 82962; 87081; 96372; 99285; G0480; J1200; J1630; J2060

== ENCOUNTER 2017-02-08 16:07 | Emergency (ER) | payer SELFPAY ==
[~2017-02-08] VITALS: Ht 160 cm; Wt 116.8 kg
[~2017-02-08 16:07] MED LIST changes: +AMIT50TA3 PO; +BENZ1TAB10 PO; +HALO10 PO; +LISI-660 PO; -PALI234D IM; -SULF1TAB42 PO
[2017-02-08 16:28] LABS: GLUCOSE,POINT OF CARE 233 MG/DL (70-110)
[2017-02-08] MEDS ORDERED: IBUPROFEN 800 MG TABLET PO ONE (16:45)
[2017-02-08 17:30] VITALS: BP 147/88
== END 2017-02-08 17:55 | disposition home or self-care (01) ==
LOC: EMS 16:09
DX: S90.32XA Contusion of left foot, initial encounter (principal); E11.9 Type 2 diabetes mellitus without complications; I10 Essential (primary) hypertension; F12.90 Cannabis use, unspecified, uncomplicated; F15.90 Other stimulant use, unspecified, uncomplicated; F17.210 Nicotine dependence, cigarettes, uncomplicated; Z88.0 Allergy status to penicillin; Z91.041 Radiographic dye allergy status; X58.XXXA Exposure to other specified factors, initial encounter; Y93.89 Activity, other specified; Y92.89 Other specified places as the place of occurrence of the external cause; Y99.8 Other external cause status
CPT/HCPCS: 82962; 99284

== ENCOUNTER 2017-05-30 20:21 | Emergency (ER) | payer SELFPAY ==
[~2017-05-30] VITALS: Ht 162.6 cm; Wt 102.3 kg
[2017-05-30 20:39] VITALS: BP 160/105
== END 2017-05-30 21:33 | disposition left against medical advice (07) ==
LOC: EMS 20:23
DX: M54.6 Pain in thoracic spine (principal); R07.9 Chest pain, unspecified; F12.90 Cannabis use, unspecified, uncomplicated; F17.210 Nicotine dependence, cigarettes, uncomplicated; Z53.21 Procedure and treatment not carried out due to patient leaving prior to being seen by health care provider

== ENCOUNTER 2017-06-22 00:50 | Emergency (ER) | payer SELFPAY ==
[~2017-06-22] VITALS: Ht 172.7 cm; Wt 81.8 kg
[2017-06-22] MEDS ORDERED: ONDANSETRON HCL 4 MG TABLET PO ONE (02:15)
[2017-06-22 02:37] LABS: BASOPHILS % (AUTO) 0.3 % (0.0-2.0); EOSINOPHILS % (AUTO) 1.7 % (1.0-6.0); HEMATOCRIT 41.4 % (36-46); LYMPHOCYTES % (AUTO) 24.9 % (22.0-44.0); MEAN CORPUSCULAR HEMOGLOBIN 28.9 pg (26.0-34.0); MEAN CORPUSCULAR HGB CONC 33.8 G/dL (31.0-37.0); MEAN CORPUSCULAR VOLUME 86 fL (80-100); MONOCYTES # (AUTO) 0.6 K/uL (0.1-1.0); MONOCYTES % (AUTO) 5.4 % (2.0-9.0); NEUTROPHILS % (AUTO) 67.7 % (40.0-70.0); PLATELET COUNT (AUTO) 300 K/uL (150-450); RED BLOOD CELL COUNT(AUTO) 4.85 MIL/uL (4.00-5.20); RED CELL DISTRIBUTION WIDTH 14.9 % (11.5-14.5)
[2017-06-22 02:53] LABS: ANION GAP 6 mmol/L (8-16); CARBON DIOXIDE 29 mmol/L (22-29); CHLORIDE 97 mmol/L (98-107); CREATININE 0.78 mg/dL (0.60-1.30); GLOMERULAR FILTR. RATE CALC > 60 mL/min (>60); GLUCOSE,RANDOM 340 mg/dL (70-110); POTASSIUM 4.3 mmol/L (3.5-5.1); SODIUM SERUM 132 mmol/L (136-145); UREA NITROGEN, BLOOD 9 mg/dL (7-18)
[2017-06-22 02:59] LABS: ALANINE AMINOTRANSFERASE 23 U/L (12-78); ALBUMIN 3.3 g/dL (3.4-5.0); ALKALINE PHOSPHATASE 204 U/L (46-116); ASPARTATE AMINOTRANSFERASE 12 U/L (15-37); BILIRUBIN,TOTAL 0.1 mg/dL (0.1-1.0); LIPASE 69 U/L (73-393); TOTAL PROTEIN, SERUM 7.4 g/dL (6.4-8.2)
[2017-06-22] MEDS ORDERED: SODIUM CHLORIDE 0.9% 1,000 ML IV ONE (03:30)
[2017-06-22 04:25] VITALS: BP 144/80
== END 2017-06-22 05:10 | disposition home or self-care (01) ==
LOC: EMS 00:51
DX: E11.65 Type 2 diabetes mellitus with hyperglycemia (principal); I10 Essential (primary) hypertension; F12.90 Cannabis use, unspecified, uncomplicated; F15.90 Other stimulant use, unspecified, uncomplicated; F17.210 Nicotine dependence, cigarettes, uncomplicated; Z88.0 Allergy status to penicillin; Z88.8 Allergy status to other drugs, medicaments and biological substances
CPT/HCPCS: 36415; 80053; 83690; 84703; 85025; 96360; 99284; J7030; Q0162

== ENCOUNTER 2017-08-26 14:49 | Emergency (ER) | payer SELFPAY ==
[~2017-08-26] VITALS: Ht 165.1 cm; Wt 112.7 kg
[~2017-08-26 14:49] MED LIST changes: -METF500T4 PO; +METF500T6 PO
[2017-08-26 15:13] LABS: GLUCOSE,POINT OF CARE 423 MG/DL (70-110)
[2017-08-26 15:37] LABS: BASOPHILS % (AUTO) 0.3 % (0.0-2.0); EOSINOPHILS % (AUTO) 0.9 % (1.0-6.0); HEMOGLOBIN 13.9 g/dL (12.0-16.0); LYMPHOCYTES # (AUTO) 2.3 K/uL (1.0-4.8); LYMPHOCYTES % (AUTO) 18.6 % (22.0-44.0); MEAN CORPUSCULAR HEMOGLOBIN 29.8 pg (26.0-34.0); MEAN CORPUSCULAR VOLUME 88 fL (80-100); MONOCYTES # (AUTO) 0.6 K/uL (0.1-1.0); MONOCYTES % (AUTO) 4.8 % (2.0-9.0); NEUTROPHILS # (AUTO) 9.5 K/uL (1.8-7.7); NEUTROPHILS % (AUTO) 75.4 % (40.0-70.0); PLATELET COUNT (AUTO) 336 K/uL (150-450); RED BLOOD CELL COUNT(AUTO) 4.69 MIL/uL (4.00-5.20)
[2017-08-26 16:37] LABS: ALANINE AMINOTRANSFERASE 26 U/L (12-78); ALBUMIN 3.3 g/dL (3.4-5.0); ALKALINE PHOSPHATASE 202 U/L (46-116); ANION GAP 12 mmol/L (8-16); ASPARTATE AMINOTRANSFERASE 13 U/L (15-37); BILIRUBIN,TOTAL 0.2 mg/dL (0.1-1.0); CALCIUM, TOTAL 8.7 mg/dL (8.8-10.5); CARBON DIOXIDE 25 mmol/L (22-29); CHLORIDE 98 mmol/L (98-107); CREATINE KINASE MB 1.6 ng/mL (0-5); CREATINE KINASE, TOTAL 174 U/L (26-192); CREATININE 1.01 mg/dL (0.60-1.30); GLOMERULAR FILTR. RATE CALC > 60 mL/min (>60); POTASSIUM 4.2 mmol/L (3.5-5.1); SODIUM SERUM 135 mmol/L (136-145); TOTAL PROTEIN, SERUM 7.1 g/dL (6.4-8.2); UREA NITROGEN, BLOOD 11 mg/dL (7-18)
[2017-08-26 16:41] LABS: GLUCOSE,RANDOM 424 mg/dL (70-110)
[2017-08-26] MEDS ORDERED: MetFORMIN HCL 500 MG TABLET PO ONE (17:00)
[2017-08-26] MEDS ORDERED: INSULIN REGULAR, HUMAN 100 UNITS/ML IVP ONE (17:00)
[2017-08-26 17:19] VITALS: BP 120/82
== END 2017-08-26 18:06 | disposition left against medical advice (07) ==
LOC: EMS 14:49
DX: R07.9 Chest pain, unspecified (principal); E11.9 Type 2 diabetes mellitus without complications; I10 Essential (primary) hypertension; F12.90 Cannabis use, unspecified, uncomplicated; F15.90 Other stimulant use, unspecified, uncomplicated; F17.210 Nicotine dependence, cigarettes, uncomplicated; Z88.0 Allergy status to penicillin; Z91.041 Radiographic dye allergy status; Z91.011 Allergy to milk products
CPT/HCPCS: 36415; 71045; 80053; 81025; 82550; 82553; 82962; 84484; 85025; 93005; 96374; 99285; 99406; J1815

== ENCOUNTER 2018-01-18 13:10 | Inpatient (IN) | payer MEDICAID, OTHER ==
[~2018-01-18] VITALS: Ht 157.5 cm; Wt 107.0 kg
[~2018-01-18 13:10] MED LIST changes: +METF-960 PO; -METF500T6 PO
[2018-01-18 14:29] LABS: GLUCOSE,POINT OF CARE 181 MG/DL (70-110)
[2018-01-18] MEDS ORDERED: LORazepam 2 MG/ML VIAL IM ONE (15:15)
[2018-01-18] MEDS ORDERED: HALOPERIDOL LACTATE 5 MG/ML VIAL IM ONE (15:15)
[2018-01-18 15:24] LABS: BASOPHILS % (AUTO) 0.7 % (0.0-2.0); EOSINOPHILS % (AUTO) 0.6 % (1.0-6.0); HEMATOCRIT 43.1 % (36-46); HEMOGLOBIN 14.7 g/dL (12.0-16.0); LYMPHOCYTES # (AUTO) 3.3 K/uL (1.0-4.8); MEAN CORPUSCULAR HEMOGLOBIN 30.4 pg (26.0-34.0); MEAN CORPUSCULAR VOLUME 89 fL (80-100); MONOCYTES # (AUTO) 0.6 K/uL (0.1-1.0); NEUTROPHILS # (AUTO) 10.8 K/uL (1.8-7.7); NEUTROPHILS % (AUTO) 72.7 % (40.0-70.0); PLATELET COUNT (AUTO) 316 K/uL (150-450); RED BLOOD CELL COUNT(AUTO) 4.82 MIL/uL (4.00-5.20)
[2018-01-18 15:31] LABS: ANION GAP 8 mmol/L (8-16); CALCIUM, TOTAL 8.9 mg/dL (8.8-10.5); CARBON DIOXIDE 27 mmol/L (22-29); CHLORIDE 101 mmol/L (98-107); CREATININE 0.83 mg/dL (0.60-1.30); GLOMERULAR FILTR. RATE CALC > 60 mL/min (>60); GLUCOSE,RANDOM 193 mg/dL (70-110); POTASSIUM 4.3 mmol/L (3.5-5.1); SODIUM SERUM 136 mmol/L (136-145); UREA NITROGEN, BLOOD 9 mg/dL (7-18)
[2018-01-18 15:34] LABS: AMPHET/METH SCREEN,URINE POSITIVE (NEGATIVE); BARBITURATE SCREEN, URINE NEGATIVE (NEGATIVE); BENZODIAZEPINES SCREEN,URINE NEGATIVE (NEGATIVE); CANNABINOID SCREEN,URINE POSITIVE (NEGATIVE); COCAINE SCREEN,URINE NEGATIVE (NEGATIVE); METHADONE SCREEN, URINE NEGATIVE (NEGATIVE); OPIATE SCREEN,URINE NEGATIVE (NEGATIVE); PHENCYCLIDINE SCREEN,URINE NEGATIVE (NEGATIVE)
[2018-01-18 15:44] LABS: ALANINE AMINOTRANSFERASE 33 U/L (12-78); ALBUMIN 3.6 g/dL (3.4-5.0); ALKALINE PHOSPHATASE 97 U/L (46-116); ASPARTATE AMINOTRANSFERASE 19 U/L (15-37); BILIRUBIN,TOTAL 0.4 mg/dL (0.1-1.0); HCG,QUANTITATIVE < 1 mIU/mL (0-6); TOTAL PROTEIN, SERUM 7.6 g/dL (6.4-8.2)
[2018-01-18] MEDS ORDERED: HALOPERIDOL 5 MG TABLET PO PRN (16:15)
[2018-01-18] MEDS ORDERED: DOCUSATE SODIUM 100 MG CAPSULE PO PRN (21:15)
[2018-01-18] MEDS ORDERED: CloNIDine HCL 0.1 MG TABLET PO PRN (21:15)
[2018-01-18] MEDS ORDERED: MAGNESIUM HYDROXIDE SUSPENSION 30 ML UDCUP PO PRN (21:15)
[2018-01-18] MEDS ORDERED: LOPERAMIDE HCL 2 MG CAPSULE PO PRN (21:15)
[2018-01-18] MEDS ORDERED: NICOTINE 14 MG/24 HOUR PATCH TD PRN (21:15)
[2018-01-18] MEDS ORDERED: ALBUTEROL SULFATE HFA 90 MCG/PUFF 8 GM INHALER IH PRN (21:15)
[2018-01-18] MEDS ORDERED: MAG HYDROX/AL HYDROX/SIMETH ES 30 ML SUSPENSION UDCUP PO PRN (21:15)
[2018-01-18] MEDS ORDERED: GuaiFENesin/D-METHORPHAN [SUGAR-FREE] 200-20MG/10 ML SYRUP UDCUP PO PRN (21:15)
[2018-01-18] MEDS ORDERED: ACETAMINOPHEN 325 MG TABLET PO PRN (21:15)
[2018-01-18] MEDS ORDERED: PETROLATUM,WHITE 71 GM JELLY TP PRN (21:15)
[2018-01-18] MEDS ORDERED: ONDANSETRON HCL 4 MG TABLET PO PRN (21:15)
[2018-01-18] MEDS ORDERED: IBUPROFEN 400 MG TABLET PO PRN (21:15)
[2018-01-19 03:10] VITALS: BP 149/69
[2018-01-19 05:34] LABS: GLUCOMETER DEV NAME(LOC) 3EX 1; GLUCOSE,POINT OF CARE 197 MG/DL (70-110)
[2018-01-19] MEDS: MetFORMIN HCL 500 MG TABLET PO SCH ×2 (06:45→16:15)
[2018-01-19 07:02] LABS: HEMOGLOBIN A1C 8.5 % (4.5-6.2)
[2018-01-19 07:45] LABS: BASOPHILS % (AUTO) 0.1 % (0.0-2.0); EOSINOPHILS % (AUTO) 1.5 % (1.0-6.0); HEMATOCRIT 45.5 % (36-46); HEMOGLOBIN 15.5 g/dL (12.0-16.0); LYMPHOCYTES # (AUTO) 4.2 K/uL (1.0-4.8); LYMPHOCYTES % (AUTO) 37.6 % (22.0-44.0); MEAN CORPUSCULAR HEMOGLOBIN 30.6 pg (26.0-34.0); MEAN CORPUSCULAR VOLUME 90 fL (80-100); MONOCYTES # (AUTO) 0.7 K/uL (0.1-1.0); MONOCYTES % (AUTO) 6.3 % (2.0-9.0); NEUTROPHILS % (AUTO) 54.5 % (40.0-70.0); PLATELET COUNT (AUTO) 316 K/uL (150-450); RED BLOOD CELL COUNT(AUTO) 5.06 MIL/uL (4.00-5.20); RED CELL DISTRIBUTION WIDTH 14.9 % (11.5-14.5)
[2018-01-19 08:27] VITALS: BP 135/83
[2018-01-19 08:42] LABS: CHOL/HDL RATIO 3.2 (3.9-5.7); THYROID STIMULATING HORMONE 1.57 uIU/mL (0.36-3.74)
[2018-01-19] MEDS: LISINOPRIL 5 MG TABLET PO SCH (10:49)
[2018-01-19 11:33] LABS: GLUCOMETER DEV NAME(LOC) 3EX 1; GLUCOSE,POINT OF CARE 234 MG/DL (70-110)
[2018-01-19] MEDS: BENZTROPINE MESYLATE 1 MG TABLET PO SCH (16:16)
[2018-01-19 16:57] VITALS: BP 144/91
[2018-01-19 16:58] VITALS: BP 144/91
[2018-01-19] MEDS: HALOPERIDOL 10 MG TABLET PO SCH (20:59)
[2018-01-19] MEDS: LORazepam 2 MG TABLET PO PRN (20:59)
[2018-01-20 05:39] LABS: GLUCOMETER DEV NAME(LOC) 3EX 1; GLUCOSE,POINT OF CARE 203 MG/DL (70-110)
[2018-01-20] MEDS: MetFORMIN HCL 500 MG TABLET PO SCH ×2 (06:47→17:16)
[2018-01-20 08:05] VITALS: BP 116/69
[2018-01-20] MEDS: BENZTROPINE MESYLATE 1 MG TABLET PO SCH ×2 (09:39→17:16)
[2018-01-20] MEDS: LISINOPRIL 5 MG TABLET PO SCH (09:39)
[2018-01-20] MEDS: LORazepam 2 MG TABLET PO PRN ×2 (14:18→19:34)
[2018-01-20 16:34] LABS: GLUCOMETER DEV NAME(LOC) 3EX 1; GLUCOSE,POINT OF CARE 198 MG/DL (70-110)
[2018-01-20 16:38] VITALS: BP 122/60
[2018-01-20] MEDS: HALOPERIDOL 10 MG TABLET PO SCH (20:53)
[2018-01-20] MEDS: ZOLPIDEM TARTRATE 10 MG TABLET PO PRN (22:00)
[2018-01-21 06:14] LABS: GLUCOMETER DEV NAME(LOC) 3EX 1; GLUCOSE,POINT OF CARE 139 MG/DL (70-110)
[2018-01-21] MEDS: MetFORMIN HCL 500 MG TABLET PO SCH ×2 (06:41→16:28)
[2018-01-21 08:05] VITALS: BP 96/60
[2018-01-21] MEDS: LISINOPRIL 5 MG TABLET PO SCH (09:00)
[2018-01-21] MEDS: BENZTROPINE MESYLATE 1 MG TABLET PO SCH ×2 (10:27→16:28)
[2018-01-21] MEDS: LORazepam 2 MG TABLET PO PRN ×2 (14:21→22:43)
[2018-01-21 16:50] LABS: GLUCOMETER DEV NAME(LOC) 3E.I; GLUCOSE,POINT OF CARE 180 MG/DL (70-110)
[2018-01-21 17:03] VITALS: BP 134/76
[2018-01-21] MEDS: HALOPERIDOL 10 MG TABLET PO SCH (20:47)
[2018-01-22 05:44] LABS: GLUCOMETER DEV NAME(LOC) 3E.I; GLUCOSE,POINT OF CARE 150 MG/DL (70-110)
[2018-01-22] MEDS: MetFORMIN HCL 500 MG TABLET PO SCH ×2 (06:46→16:30)
[2018-01-22 08:05] VITALS: BP 107/58
[2018-01-22] MEDS: LISINOPRIL 5 MG TABLET PO SCH (10:28)
[2018-01-22] MEDS: BENZTROPINE MESYLATE 1 MG TABLET PO SCH ×2 (10:28→16:29)
[2018-01-22] MEDS: LORazepam 2 MG TABLET PO PRN ×2 (16:28→20:51)
[2018-01-22 17:04] LABS: GLUCOMETER DEV NAME(LOC) 3E.C; GLUCOSE,POINT OF CARE 176 MG/DL (70-110)
[2018-01-22 17:19] VITALS: BP 121/74
[2018-01-22] MEDS: HALOPERIDOL 10 MG TABLET PO SCH (20:34)
[2018-01-22] MEDS: ZOLPIDEM TARTRATE 10 MG TABLET PO PRN (20:51)
[2018-01-23 06:03] LABS: GLUCOMETER DEV NAME(LOC) 3E.I; GLUCOSE,POINT OF CARE 204 MG/DL (70-110)
[2018-01-23] MEDS: MetFORMIN HCL 500 MG TABLET PO SCH ×2 (07:01→16:30)
[2018-01-23 10:02] VITALS: BP 120/63
[2018-01-23] MEDS: LISINOPRIL 5 MG TABLET PO SCH (10:23)
[2018-01-23] MEDS: BENZTROPINE MESYLATE 1 MG TABLET PO SCH ×2 (10:24→16:30)
[2018-01-23 16:22] VITALS: BP 116/64
[2018-01-23 16:54] LABS: GLUCOMETER DEV NAME(LOC) 3E.I; GLUCOSE,POINT OF CARE 165 MG/DL (70-110)
[2018-01-23] MEDS: HALOPERIDOL 10 MG TABLET PO SCH (20:19)
[2018-01-23] MEDS: LORazepam 2 MG TABLET PO PRN (23:03)
[2018-01-23] MEDS: ZOLPIDEM TARTRATE 10 MG TABLET PO PRN (23:03)
[2018-01-24 06:39] LABS: GLUCOMETER DEV NAME(LOC) 3E.I; GLUCOSE,POINT OF CARE 141 MG/DL (70-110)
[2018-01-24] MEDS: MetFORMIN HCL 500 MG TABLET PO SCH (06:58)
[2018-01-24] MEDS: BENZTROPINE MESYLATE 1 MG TABLET PO SCH (09:35)
[2018-01-24] MEDS: LISINOPRIL 5 MG TABLET PO SCH (09:35)
[2018-01-24 09:43] VITALS: BP 128/62
[2018-01-24] MEDS ORDERED: HALOPERIDOL DECANOATE 100 MG/ML VIAL IM SCH (12:30)
[2018-01-24] MEDS ORDERED: HALO100A IM (13:32)
== END 2018-01-24 14:45 | disposition home or self-care (01) | DRG 750 ==
LOC: EMS 13:13 → EDBD 17:21 → 3EI 17:21
DX: F25.1 Schizoaffective disorder, depressive type (principal); R45.851 Suicidal ideations; E66.01 Morbid (severe) obesity due to excess calories; E11.9 Type 2 diabetes mellitus without complications; E55.9 Vitamin D deficiency, unspecified; D72.829 Elevated white blood cell count, unspecified; F12.10 Cannabis abuse, uncomplicated; F15.10 Other stimulant abuse, uncomplicated; I10 Essential (primary) hypertension; F17.200 Nicotine dependence, unspecified, uncomplicated; Z79.899 Other long term (current) drug therapy; Z91.5 Personal history of self-harm; Z68.41 Body mass index [BMI] 40.0-44.9, adult; Z88.0 Allergy status to penicillin; Z88.8 Allergy status to other drugs, medicaments and biological substances; Z91.041 Radiographic dye allergy status; Z79.84 Long term (current) use of oral hypoglycemic drugs
CPT/HCPCS: 83036; 84443; 96372; G0480; J1630; J1631; J2060

== ENCOUNTER 2018-07-17 17:12 | Inpatient (IN) | payer MEDICAID ==
[~2018-07-17] VITALS: Ht 162.6 cm; Wt 105.5 kg
[~2018-07-17 17:12] MED LIST changes: -AMIT50TA3 PO; +HALO100A IM
[2018-07-17] MEDS ORDERED: AMIT10TA6 PO (17:33)
[2018-07-17 17:34] LABS: GLUCOSE,POINT OF CARE 154 MG/DL (70-110)
[2018-07-17] MEDS ORDERED: LORazepam 2 MG/ML VIAL IM ONE (19:00)
[2018-07-17] MEDS ORDERED: HALOPERIDOL LACTATE 5 MG/ML VIAL IM ONE (19:00)
[2018-07-17] MEDS ORDERED: DiphenhydrAMINE HCL 50 MG/ML VIAL IM ONE (19:00)
[2018-07-17 19:10] LABS: BASOPHILS % (AUTO) 0.4 % (0.0-2.0); EOSINOPHILS % (AUTO) 0.7 % (1.0-6.0); HEMATOCRIT 43.8 % (36-46); HEMOGLOBIN 14.3 g/dL (12.0-16.0); LYMPHOCYTES # (AUTO) 3.3 K/uL (1.0-4.8); LYMPHOCYTES % (AUTO) 24.3 % (22.0-44.0); MEAN CORPUSCULAR HEMOGLOBIN 29.8 pg (26.0-34.0); MEAN CORPUSCULAR HGB CONC 32.6 G/dL (31.0-37.0); MEAN CORPUSCULAR VOLUME 91 fL (80-100); MONOCYTES # (AUTO) 0.9 K/uL (0.1-1.0); MONOCYTES % (AUTO) 6.7 % (2.0-9.0); NEUTROPHILS # (AUTO) 9.2 K/uL (1.8-7.7); NEUTROPHILS % (AUTO) 67.9 % (40.0-70.0); PLATELET COUNT (AUTO) 389 K/uL (150-450); RED BLOOD CELL COUNT(AUTO) 4.79 MIL/uL (4.00-5.20); RED CELL DISTRIBUTION WIDTH 14.2 % (11.5-14.5)
[2018-07-17 19:37] LABS: ANION GAP 13 mmol/L (8-16); CALCIUM, TOTAL 9.9 mg/dL (8.8-10.5); CARBON DIOXIDE 25 mmol/L (22-29); CHLORIDE 101 mmol/L (98-107); CREATININE 0.83 mg/dL (0.60-1.30); GLOMERULAR FILTR. RATE CALC > 60 mL/min (>60); GLUCOSE,RANDOM 158 mg/dL (70-110); POTASSIUM 4.5 mmol/L (3.5-5.1); SODIUM SERUM 139 mmol/L (136-145); UREA NITROGEN, BLOOD 16 mg/dL (7-18)
[2018-07-17 19:51] LABS: ALANINE AMINOTRANSFERASE 35 U/L (12-78); ALKALINE PHOSPHATASE 90 U/L (46-116); ASPARTATE AMINOTRANSFERASE 27 U/L (15-37); BILIRUBIN,TOTAL 0.5 mg/dL (0.1-1.0); HCG,QUANTITATIVE < 1 mIU/mL (0-6); TOTAL PROTEIN, SERUM 8.1 g/dL (6.4-8.2)
[2018-07-17 20:07] LABS: AMPHET/METH SCREEN,URINE POSITIVE (NEGATIVE); BARBITURATE SCREEN, URINE NEGATIVE (NEGATIVE); BENZODIAZEPINES SCREEN,URINE NEGATIVE (NEGATIVE); CANNABINOID SCREEN,URINE NEGATIVE (NEGATIVE); COCAINE SCREEN,URINE NEGATIVE (NEGATIVE); METHADONE SCREEN, URINE NEGATIVE (NEGATIVE); OPIATE SCREEN,URINE NEGATIVE (NEGATIVE); PHENCYCLIDINE SCREEN,URINE NEGATIVE (NEGATIVE)
[2018-07-17] MEDS ORDERED: ZOLPIDEM TARTRATE 10 MG TABLET PO PRN (23:30)
[2018-07-18 01:19] LABS: GLUCOMETER DEV NAME(LOC) BV3S.; GLUCOSE,POINT OF CARE 168 MG/DL (70-110)
[2018-07-18 02:18] VITALS: BP 113/71
[2018-07-18] MEDS ORDERED: GLUCAGON,HUMAN RECOMBINANT 1 MG VIAL IM PRN (06:45)
[2018-07-18 07:54] LABS: CHOL/HDL RATIO 3.6 (3.9-5.7)
[2018-07-18 10:20] VITALS: BP 109/70
[2018-07-18] MEDS: LORazepam 2 MG TABLET PO PRN ×2 (10:24→16:45)
[2018-07-18 10:58] VITALS: BP 109/70
[2018-07-18 11:59] LABS: GLUCOMETER DEV NAME(LOC) BV3S.; GLUCOSE,POINT OF CARE 172 MG/DL (70-110)
[2018-07-18] MEDS: INSULIN LISPRO 100 UNITS/ML SQ PRN ×3 (12:27→22:31)
[2018-07-18] MEDS: HALOPERIDOL 10 MG TABLET PO SCH ×2 (13:10→20:12)
[2018-07-18] MEDS: BENZTROPINE MESYLATE 1 MG TABLET PO SCH ×2 (13:10→20:12)
[2018-07-18] MEDS: MetFORMIN HCL 500 MG TABLET PO SCH (16:45)
[2018-07-18 17:10] LABS: GLUCOMETER DEV NAME(LOC) BV3S.; GLUCOSE,POINT OF CARE 183 MG/DL (70-110)
[2018-07-18] MEDS: AMITRIPTYLINE HCL 50 MG TABLET PO SCH (20:13)
[2018-07-18 21:44] LABS: GLUCOMETER DEV NAME(LOC) BV3S.; GLUCOSE,POINT OF CARE 164 MG/DL (70-110)
[2018-07-19 06:23] VITALS: BP 110/78
[2018-07-19 06:49] LABS: GLUCOMETER DEV NAME(LOC) BV3S.; GLUCOSE,POINT OF CARE 149 MG/DL (70-110)
[2018-07-19] MEDS: MetFORMIN HCL 500 MG TABLET PO SCH ×2 (06:50→16:28)
[2018-07-19] MEDS: INSULIN LISPRO 100 UNITS/ML SQ PRN ×3 (06:56→17:46)
[2018-07-19 08:18] VITALS: BP 120/61
[2018-07-19] MEDS: BENZTROPINE MESYLATE 1 MG TABLET PO SCH ×2 (08:29→20:39)
[2018-07-19] MEDS: LISINOPRIL 5 MG TABLET PO SCH (08:29)
[2018-07-19] MEDS: HALOPERIDOL 10 MG TABLET PO SCH ×2 (08:29→20:39)
[2018-07-19 11:09] LABS: GLUCOMETER DEV NAME(LOC) BV3S.; GLUCOSE,POINT OF CARE 186 MG/DL (70-110)
[2018-07-19 16:09] VITALS: BP 115/64
[2018-07-19] MEDS: LORazepam 2 MG TABLET PO PRN (16:28)
[2018-07-19 17:09] LABS: GLUCOMETER DEV NAME(LOC) BV3S.; GLUCOSE,POINT OF CARE 144 MG/DL (70-110)
[2018-07-19] MEDS: AMITRIPTYLINE HCL 50 MG TABLET PO SCH (20:39)
[2018-07-19 21:04] LABS: GLUCOMETER DEV NAME(LOC) BV3S.; GLUCOSE,POINT OF CARE 131 MG/DL (70-110)
[2018-07-20 06:24] VITALS: BP 95/67
[2018-07-20 06:24] LABS: GLUCOMETER DEV NAME(LOC) BV3S.; GLUCOSE,POINT OF CARE 125 MG/DL (70-110)
[2018-07-20] MEDS: MetFORMIN HCL 500 MG TABLET PO SCH ×2 (06:59→16:43)
[2018-07-20 08:06] VITALS: BP 100/59
[2018-07-20] MEDS: HALOPERIDOL 10 MG TABLET PO SCH ×2 (08:49→20:13)
[2018-07-20] MEDS: BENZTROPINE MESYLATE 1 MG TABLET PO SCH ×2 (08:49→20:13)
[2018-07-20] MEDS: LISINOPRIL 5 MG TABLET PO SCH (08:49)
[2018-07-20 11:44] LABS: GLUCOMETER DEV NAME(LOC) BV3S.; GLUCOSE,POINT OF CARE 137 MG/DL (70-110)
[2018-07-20] MEDS: HALOPERIDOL 5 MG TABLET PO PRN (12:24)
[2018-07-20] MEDS: LORazepam 2 MG TABLET PO PRN (12:24)
[2018-07-20] MEDS: INSULIN LISPRO 100 UNITS/ML SQ PRN ×3 (13:54→21:20)
[2018-07-20 16:05] VITALS: BP 112/67
[2018-07-20 16:29] LABS: GLUCOMETER DEV NAME(LOC) BV3S.; GLUCOSE,POINT OF CARE 152 MG/DL (70-110)
[2018-07-20] MEDS: AMITRIPTYLINE HCL 50 MG TABLET PO SCH (20:13)
[2018-07-20 20:34] LABS: GLUCOMETER DEV NAME(LOC) BV3S.; GLUCOSE,POINT OF CARE 131 MG/DL (70-110)
[2018-07-21 05:14] VITALS: BP 117/69
[2018-07-21 06:25] LABS: GLUCOMETER DEV NAME(LOC) BV3S.; GLUCOSE,POINT OF CARE 124 MG/DL (70-110)
[2018-07-21] MEDS: MetFORMIN HCL 500 MG TABLET PO SCH ×2 (06:48→16:24)
[2018-07-21 08:24] VITALS: BP 115/77
[2018-07-21] MEDS: LISINOPRIL 5 MG TABLET PO SCH (08:38)
[2018-07-21] MEDS: HALOPERIDOL 10 MG TABLET PO SCH ×2 (08:38→20:28)
[2018-07-21] MEDS: BENZTROPINE MESYLATE 1 MG TABLET PO SCH ×2 (08:39→20:28)
[2018-07-21 12:25] LABS: GLUCOMETER DEV NAME(LOC) BV3S.; GLUCOSE,POINT OF CARE 140 MG/DL (70-110)
[2018-07-21 16:20] VITALS: BP 114/60
[2018-07-21] MEDS: LORazepam 2 MG TABLET PO PRN (16:24)
[2018-07-21] MEDS: HALOPERIDOL 5 MG TABLET PO PRN (16:24)
[2018-07-21 16:29] LABS: GLUCOMETER DEV NAME(LOC) BV3S.; GLUCOSE,POINT OF CARE 179 MG/DL (70-110)
[2018-07-21] MEDS: INSULIN LISPRO 100 UNITS/ML SQ PRN ×2 (16:59→21:11)
[2018-07-21] MEDS ORDERED: LACTULOSE 20 GM/30 ML SOLUTION UDCUP PO PRN (19:00)
[2018-07-21] MEDS ORDERED: BISACODYL 5 MG EC TABLET PO PRN (19:00)
[2018-07-21] MEDS ORDERED: MAGNESIUM HYDROXIDE SUSPENSION 30 ML UDCUP PO PRN (19:00)
[2018-07-21] MEDS: AMITRIPTYLINE HCL 50 MG TABLET PO SCH (20:28)
[2018-07-21 21:03] LABS: GLUCOMETER DEV NAME(LOC) BV3S.; GLUCOSE,POINT OF CARE 120 MG/DL (70-110)
[2018-07-22 06:25] LABS: GLUCOMETER DEV NAME(LOC) BV3S.; GLUCOSE,POINT OF CARE 109 MG/DL (70-110)
[2018-07-22] MEDS: MetFORMIN HCL 500 MG TABLET PO SCH ×2 (06:46→16:07)
[2018-07-22 06:48] VITALS: BP 113/71
[2018-07-22] MEDS: HALOPERIDOL 10 MG TABLET PO SCH ×2 (09:42→20:15)
[2018-07-22] MEDS: DOCUSATE SODIUM 250 MG CAPSULE PO SCH ×2 (09:42→16:06)
[2018-07-22] MEDS: BENZTROPINE MESYLATE 1 MG TABLET PO SCH ×2 (09:43→20:15)
[2018-07-22] MEDS: LISINOPRIL 5 MG TABLET PO SCH (10:04)
[2018-07-22] MEDS: GABAPENTIN 300 MG CAPSULE PO SCH ×2 (12:26→16:07)
[2018-07-22 16:04] VITALS: BP 133/75
[2018-07-22 16:14] LABS: GLUCOMETER DEV NAME(LOC) BV3S.; GLUCOSE,POINT OF CARE 153 MG/DL (70-110)
[2018-07-22] MEDS: INSULIN LISPRO 100 UNITS/ML SQ PRN (17:00)
[2018-07-22] MEDS: LORazepam 2 MG TABLET PO PRN (17:25)
[2018-07-22] MEDS: AMITRIPTYLINE HCL 50 MG TABLET PO SCH (20:15)
[2018-07-22 20:19] LABS: GLUCOMETER DEV NAME(LOC) BV3S.; GLUCOSE,POINT OF CARE 109 MG/DL (70-110)
[2018-07-23 04:45] VITALS: BP 139/85
[2018-07-23] MEDS: MetFORMIN HCL 500 MG TABLET PO SCH (06:47)
[2018-07-23 06:49] LABS: GLUCOMETER DEV NAME(LOC) BV3S.; GLUCOSE,POINT OF CARE 156 MG/DL (70-110)
[2018-07-23] MEDS: HALOPERIDOL 10 MG TABLET PO SCH (08:12)
[2018-07-23] MEDS: DOCUSATE SODIUM 250 MG CAPSULE PO SCH (08:12)
[2018-07-23] MEDS: BENZTROPINE MESYLATE 1 MG TABLET PO SCH (08:13)
[2018-07-23] MEDS: LISINOPRIL 5 MG TABLET PO SCH (08:13)
[2018-07-23] MEDS: GABAPENTIN 300 MG CAPSULE PO SCH ×2 (08:13→13:13)
[2018-07-23 08:25] VITALS: BP 106/70
[2018-07-23 11:34] LABS: GLUCOMETER DEV NAME(LOC) BV3S.; GLUCOSE,POINT OF CARE 157 MG/DL (70-110)
[2018-07-23] MEDS ORDERED: AMIT50TA3 PO (11:46)
[2018-07-23] MEDS ORDERED: DOCU250C91 PO (11:48)
[2018-07-23] MEDS ORDERED: GABA-531 PO (11:49)
[2018-07-23] MEDS ORDERED: HALO10 PO (11:50)
[2018-07-23] MEDS: INSULIN LISPRO 100 UNITS/ML SQ PRN (13:11)
== END 2018-07-23 15:40 | disposition home or self-care (01) | DRG 750 ==
LOC: EMS 17:12 → B3A 22:30
PROVIDERS: ADMIT Psychiatry & Neurology Psychiatry; ATTEND Psychiatry & Neurology Psychiatry
DX: F25.0 Schizoaffective disorder, bipolar type (principal); R45.851 Suicidal ideations; E11.9 Type 2 diabetes mellitus without complications; E55.9 Vitamin D deficiency, unspecified; D72.828 Other elevated white blood cell count; E66.9 Obesity, unspecified; F12.90 Cannabis use, unspecified, uncomplicated; I10 Essential (primary) hypertension; Z88.0 Allergy status to penicillin; Z79.899 Other long term (current) drug therapy; F19.10 Other psychoactive substance abuse, uncomplicated; F15.10 Other stimulant abuse, uncomplicated; F41.9 Anxiety disorder, unspecified; Z83.3 Family history of diabetes mellitus; F17.210 Nicotine dependence, cigarettes, uncomplicated; Z68.39 Body mass index [BMI] 39.0-39.9, adult; Z91.041 Radiographic dye allergy status
CPT/HCPCS: 83036; 96372; G0480; J1200; J1630; J2060

== ENCOUNTER 2019-01-14 20:59 | Inpatient (IN) | payer MEDICAID, OTHER ==
[~2019-01-14] VITALS: Ht 160 cm; Wt 109.1 kg
[~2019-01-14 20:59] MED LIST changes: +AMIT50TA3 PO; +DOCU-342 PO; +GABA-531 PO; -HALO100A IM
[2019-01-14] MEDS ORDERED: TOPI25 PO (21:50)
[2019-01-14] MEDS ORDERED: SERT50TA12 PO (21:50)
[2019-01-14] MEDS ORDERED: ZIPR40CA2 PO (21:50)
[2019-01-14] MEDS ORDERED: BENZ2TAB10 PO (21:50)
[2019-01-14] MEDS ORDERED: DOCU-275 PO (21:50)
[2019-01-14] MEDS ORDERED: METF-960 PO (21:50)
[2019-01-14] MEDS ORDERED: HALO5TAB23 PO (21:50)
[2019-01-14] MEDS ORDERED: HALOPERIDOL LACTATE 5 MG/ML VIAL IM ONE (22:00)
[2019-01-14] MEDS ORDERED: DiphenhydrAMINE HCL 50 MG/ML VIAL IM ONE (22:00)
[2019-01-14] MEDS ORDERED: LORazepam 2 MG/ML VIAL IM ONE (22:00)
[2019-01-14] MEDS ORDERED: ZOLPIDEM TARTRATE 10 MG TABLET PO PRN (22:15)
[2019-01-14 22:26] LABS: AMPHET/METH SCREEN,URINE POSITIVE (NEGATIVE); BARBITURATE SCREEN, URINE NEGATIVE (NEGATIVE); BENZODIAZEPINES SCREEN,URINE NEGATIVE (NEGATIVE); CANNABINOID SCREEN,URINE NEGATIVE (NEGATIVE); COCAINE SCREEN,URINE NEGATIVE (NEGATIVE); METHADONE SCREEN, URINE NEGATIVE (NEGATIVE); OPIATE SCREEN,URINE NEGATIVE (NEGATIVE)
[2019-01-14 22:27] LABS: PHENCYCLIDINE SCREEN,URINE NEGATIVE (NEGATIVE)
[2019-01-14 22:29] LABS: GLUCOSE,POINT OF CARE 139 MG/DL (70-110)
[2019-01-15 02:51] VITALS: BP 149/82
[2019-01-15 03:11] LABS: GLUCOMETER DEV NAME(LOC) BV3N.; GLUCOSE,POINT OF CARE 135 MG/DL (70-110)
[2019-01-15] MEDS ORDERED: INFLUENZA VIRUS VACCINE QVS 2019-20 (3YR+)/PF 60 MCG/0.5 ML SYRINGE IM ONE (04:00)
[2019-01-15] MEDS ORDERED: -PHARMACY VACCINE NOTE- MISC ONE (04:00)
[2019-01-15 07:34] LABS: BASOPHILS % (AUTO) 0.2 % (0.0-2.0); EOSINOPHILS % (AUTO) 1.3 % (1.0-6.0); HEMATOCRIT 40.4 % (36-46); HEMOGLOBIN 13.7 g/dL (12.0-16.0); LYMPHOCYTES # (AUTO) 3.4 K/uL (1.0-4.8); LYMPHOCYTES % (AUTO) 25.6 % (22.0-44.0); MEAN CORPUSCULAR HEMOGLOBIN 30.8 pg (26.0-34.0); MEAN CORPUSCULAR HGB CONC 33.9 G/dL (31.0-37.0); MEAN CORPUSCULAR VOLUME 91 fL (80-100); MONOCYTES % (AUTO) 7.8 % (2.0-9.0); NEUTROPHILS # (AUTO) 8.6 K/uL (1.8-7.7); NEUTROPHILS % (AUTO) 65.1 % (40.0-70.0); PLATELET COUNT (AUTO) 326 K/uL (150-450); RED BLOOD CELL COUNT(AUTO) 4.45 MIL/uL (4.00-5.20); RED CELL DISTRIBUTION WIDTH 14.3 % (11.5-14.5)
[2019-01-15 07:45] LABS: ANION GAP 10 mmol/L (8-16); CALCIUM, TOTAL 8.7 mg/dL (8.8-10.5); CARBON DIOXIDE 24 mmol/L (22-29); CHLORIDE 102 mmol/L (98-107); CREATININE 0.71 mg/dL (0.60-1.30); GLOMERULAR FILTR. RATE CALC > 60 mL/min (>60); GLUCOSE,RANDOM 105 mg/dL (70-110); POTASSIUM 3.6 mmol/L (3.5-5.1); SODIUM SERUM 136 mmol/L (136-145)
[2019-01-15] MEDS ORDERED: ACETAMINOPHEN 325 MG TABLET PO PRN (08:00)
[2019-01-15] MEDS ORDERED: MAGNESIUM HYDROXIDE SUSPENSION 30 ML UDCUP PO PRN (08:00)
[2019-01-15] MEDS ORDERED: MAG HYDROX/AL HYDROX/SIMETH ES 30 ML SUSPENSION UDCUP PO PRN (08:00)
[2019-01-15] MEDS ORDERED: ONDANSETRON HCL 4 MG TABLET PO PRN (08:00)
[2019-01-15] MEDS ORDERED: PETROLATUM,WHITE 28 GM JELLY TP PRN (08:00)
[2019-01-15] MEDS ORDERED: CloNIDine HCL 0.1 MG TABLET PO PRN (08:00)
[2019-01-15] MEDS ORDERED: DOCUSATE SODIUM 100 MG CAPSULE PO PRN (08:00)
[2019-01-15] MEDS ORDERED: NICOTINE 14 MG/24 HOUR PATCH TD PRN (08:00)
[2019-01-15] MEDS ORDERED: ALBUTEROL SULFATE HFA 90 MCG/PUFF 8 GM INHALER IH PRN (08:00)
[2019-01-15] MEDS ORDERED: LOPERAMIDE HCL 2 MG CAPSULE PO PRN (08:00)
[2019-01-15] MEDS ORDERED: GuaiFENesin/D-METHORPHAN [SUGAR-FREE] 200-20MG/10 ML SYRUP UDCUP PO PRN (08:00)
[2019-01-15 08:03] LABS: ALANINE AMINOTRANSFERASE 33 U/L (12-78); ALBUMIN 3.3 g/dL (3.4-5.0); ALKALINE PHOSPHATASE 86 U/L (46-116); ASPARTATE AMINOTRANSFERASE 43 U/L (15-37); BILIRUBIN,TOTAL 0.4 mg/dL (0.1-1.0); CHOL/HDL RATIO 2.8 (3.9-5.7); CHOLESTEROL 124 mg/dL (131-200); HCG,QUANTITATIVE < 1 mIU/mL (0-6); HDL CHOLESTEROL 45 mg/dL (40-60); LDL CHOL (CALC.) 69 mg/dL (0-130); TOTAL PROTEIN, SERUM 7.2 g/dL (6.4-8.2); TRIGLYCERIDES 50 mg/dL (15-150)
[2019-01-15 08:08] LABS: UREA NITROGEN, BLOOD 18 mg/dL (7-18)
[2019-01-15 08:11] VITALS: BP 126/69
[2019-01-15] MEDS: LISINOPRIL 5 MG TABLET PO SCH (09:43)
[2019-01-15] MEDS: SERTRALINE HCL 50 MG TABLET PO SCH (11:41)
[2019-01-15] MEDS: BENZTROPINE MESYLATE 2 MG TABLET PO SCH ×2 (11:41→16:30)
[2019-01-15] MEDS: GABAPENTIN 300 MG CAPSULE PO SCH ×2 (12:30→16:30)
[2019-01-15 16:17] VITALS: BP 114/53
[2019-01-15] MEDS: ZIPRASIDONE HCL 40 MG CAPSULE PO SCH (16:30)
[2019-01-15] MEDS: MetFORMIN HCL 500 MG TABLET PO SCH (16:30)
[2019-01-15 17:12] LABS: GLUCOMETER DEV NAME(LOC) BV3S.; GLUCOSE,POINT OF CARE 132 MG/DL (70-110)
[2019-01-16] MEDS: MetFORMIN HCL 500 MG TABLET PO SCH ×2 (06:49→16:26)
[2019-01-16] MEDS: ZIPRASIDONE HCL 40 MG CAPSULE PO SCH ×2 (06:49→17:00)
[2019-01-16 08:00] VITALS: BP 116/70
[2019-01-16] MEDS: GABAPENTIN 300 MG CAPSULE PO SCH ×3 (08:13→16:26)
[2019-01-16] MEDS: LISINOPRIL 5 MG TABLET PO SCH (08:13)
[2019-01-16] MEDS: SERTRALINE HCL 50 MG TABLET PO SCH (08:13)
[2019-01-16] MEDS: BENZTROPINE MESYLATE 2 MG TABLET PO SCH ×2 (08:14→16:26)
[2019-01-16 16:00] VITALS: BP 121/81
[2019-01-17 06:21] VITALS: BP 133/84
[2019-01-17] MEDS: ZIPRASIDONE HCL 40 MG CAPSULE PO SCH ×2 (06:52→17:01)
[2019-01-17] MEDS: MetFORMIN HCL 500 MG TABLET PO SCH ×2 (06:52→17:01)
[2019-01-17] MEDS: BENZTROPINE MESYLATE 2 MG TABLET PO SCH ×2 (08:21→17:02)
[2019-01-17] MEDS: SERTRALINE HCL 50 MG TABLET PO SCH (08:21)
[2019-01-17] MEDS: LISINOPRIL 5 MG TABLET PO SCH (08:21)
[2019-01-17] MEDS: GABAPENTIN 300 MG CAPSULE PO SCH ×3 (08:21→17:01)
[2019-01-17 08:25] VITALS: BP 159/78
[2019-01-17 09:35] VITALS: BP 119/71
[2019-01-17] MEDS: LORazepam 2 MG TABLET PO PRN ×2 (12:23→17:00)
[2019-01-18] MEDS: ZIPRASIDONE HCL 40 MG CAPSULE PO SCH ×2 (06:48→16:24)
[2019-01-18] MEDS: MetFORMIN HCL 500 MG TABLET PO SCH ×2 (06:48→16:24)
[2019-01-18 07:06] LABS: BASOPHILS % (AUTO) 0.2 % (0.0-2.0); EOSINOPHILS % (AUTO) 1.2 % (1.0-6.0); HEMATOCRIT 41.4 % (36-46); HEMOGLOBIN 14.1 g/dL (12.0-16.0); LYMPHOCYTES # (AUTO) 2.9 K/uL (1.0-4.8); LYMPHOCYTES % (AUTO) 29.4 % (22.0-44.0); MEAN CORPUSCULAR HEMOGLOBIN 31.1 pg (26.0-34.0); MEAN CORPUSCULAR HGB CONC 34.1 G/dL (31.0-37.0); MEAN CORPUSCULAR VOLUME 91 fL (80-100); MONOCYTES # (AUTO) 0.6 K/uL (0.1-1.0); MONOCYTES % (AUTO) 5.6 % (2.0-9.0); NEUTROPHILS # (AUTO) 6.2 K/uL (1.8-7.7); NEUTROPHILS % (AUTO) 63.6 % (40.0-70.0); PLATELET COUNT (AUTO) 306 K/uL (150-450); RED BLOOD CELL COUNT(AUTO) 4.54 MIL/uL (4.00-5.20)
[2019-01-18 08:11] VITALS: BP 131/79
[2019-01-18] MEDS: LISINOPRIL 5 MG TABLET PO SCH (08:21)
[2019-01-18] MEDS: BENZTROPINE MESYLATE 2 MG TABLET PO SCH ×2 (08:21→16:24)
[2019-01-18] MEDS: SERTRALINE HCL 50 MG TABLET PO SCH (08:21)
[2019-01-18] MEDS: GABAPENTIN 300 MG CAPSULE PO SCH ×3 (08:21→16:24)
[2019-01-18] MEDS: IBUPROFEN 400 MG TABLET PO PRN (09:09)
[2019-01-18] MEDS: HALOPERIDOL 5 MG TABLET PO PRN (12:27)
[2019-01-18] MEDS: LORazepam 2 MG TABLET PO PRN (12:27)
[2019-01-19 06:33] VITALS: BP 123/66
[2019-01-19] MEDS: ZIPRASIDONE HCL 40 MG CAPSULE PO SCH ×2 (06:52→17:23)
[2019-01-19] MEDS: MetFORMIN HCL 500 MG TABLET PO SCH ×2 (06:52→17:23)
[2019-01-19] MEDS: SERTRALINE HCL 50 MG TABLET PO SCH (07:59)
[2019-01-19] MEDS: LORazepam 2 MG TABLET PO PRN ×2 (08:00→12:49)
[2019-01-19] MEDS: GABAPENTIN 300 MG CAPSULE PO SCH ×3 (08:00→17:23)
[2019-01-19] MEDS: BENZTROPINE MESYLATE 2 MG TABLET PO SCH ×2 (08:00→17:23)
[2019-01-19] MEDS: LISINOPRIL 5 MG TABLET PO SCH (08:00)
[2019-01-19 08:06] VITALS: BP 137/90
[2019-01-19] MEDS: IBUPROFEN 400 MG TABLET PO PRN (12:17)
[2019-01-19] MEDS: HALOPERIDOL 5 MG TABLET PO PRN (12:49)
[2019-01-19 16:12] VITALS: BP 111/73
[2019-01-20 06:17] VITALS: BP 125/62
[2019-01-20] MEDS: ZIPRASIDONE HCL 40 MG CAPSULE PO SCH (06:20)
[2019-01-20] MEDS: MetFORMIN HCL 500 MG TABLET PO SCH (06:21)
[2019-01-20 08:29] VITALS: BP 141/104
[2019-01-20] MEDS: GABAPENTIN 300 MG CAPSULE PO SCH ×2 (08:56→13:24)
[2019-01-20] MEDS: SERTRALINE HCL 50 MG TABLET PO SCH (08:57)
[2019-01-20] MEDS: LISINOPRIL 5 MG TABLET PO SCH (08:57)
[2019-01-20] MEDS: BENZTROPINE MESYLATE 2 MG TABLET PO SCH (09:02)
== END 2019-01-20 20:22 | disposition home or self-care (01) | DRG 753 ==
LOC: EDBD → EMS 21:01 → B3A 23:00
PROVIDERS: ADMIT Psychiatry & Neurology Psychiatry; ATTEND Psychiatry & Neurology Psychiatry
DX: F31.2 Bipolar disorder, current episode manic severe with psychotic features (principal); E11.65 Type 2 diabetes mellitus with hyperglycemia; R45.851 Suicidal ideations; D72.829 Elevated white blood cell count, unspecified; E78.5 Hyperlipidemia, unspecified; F15.10 Other stimulant abuse, uncomplicated; F10.10 Alcohol abuse, uncomplicated; I10 Essential (primary) hypertension; J44.9 Chronic obstructive pulmonary disease, unspecified; K21.9 Gastro-esophageal reflux disease without esophagitis; F17.210 Nicotine dependence, cigarettes, uncomplicated; F12.90 Cannabis use, unspecified, uncomplicated; F41.9 Anxiety disorder, unspecified; Z28.21 Immunization not carried out because of patient refusal; Z88.0 Allergy status to penicillin; Z91.041 Radiographic dye allergy status; Z79.899 Other long term (current) drug therapy
CPT/HCPCS: 83036; G0480; J1200; J1630; J2060

== ENCOUNTER 2019-02-01 03:42 | Inpatient (IN) | payer MEDICAID, OTHER ==
[~2019-02-01] VITALS: Ht 165.1 cm; Wt 101.5 kg
[~2019-02-01 03:42] MED LIST changes: -AMIT50TA3 PO; -DOCU-342 PO; -HALO10 PO; +SERT50TA12 PO; +ZIPR40CA2 PO
[2019-02-01] MEDS ORDERED: HALOPERIDOL LACTATE 5 MG/ML VIAL IM ONE (04:30)
[2019-02-01] MEDS ORDERED: LORazepam 2 MG/ML VIAL IM ONE (04:30)
[2019-02-01] MEDS ORDERED: DiphenhydrAMINE HCL 50 MG/ML VIAL IM ONE (04:30)
[2019-02-01 04:54] LABS: BASOPHILS % (AUTO) 0.6 % (0.0-2.0); EOSINOPHILS % (AUTO) 1.6 % (1.0-6.0); HEMATOCRIT 38.4 % (36-46); LYMPHOCYTES # (AUTO) 3.9 K/uL (1.0-4.8); MEAN CORPUSCULAR HEMOGLOBIN 30.7 pg (26.0-34.0); MEAN CORPUSCULAR HGB CONC 33.9 G/dL (31.0-37.0); MEAN CORPUSCULAR VOLUME 91 fL (80-100); MONOCYTES # (AUTO) 0.7 K/uL (0.1-1.0); MONOCYTES % (AUTO) 4.9 % (2.0-9.0); NEUTROPHILS # (AUTO) 9.1 K/uL (1.8-7.7); NEUTROPHILS % (AUTO) 64.9 % (40.0-70.0); PLATELET COUNT (AUTO) 383 K/uL (150-450); RED BLOOD CELL COUNT(AUTO) 4.25 MIL/uL (4.00-5.20); RED CELL DISTRIBUTION WIDTH 13.8 % (11.5-14.5)
[2019-02-01 05:06] LABS: ANION GAP 10 mmol/L (8-16); CALCIUM, TOTAL 8.9 mg/dL (8.8-10.5); CARBON DIOXIDE 24 mmol/L (22-29); CHLORIDE 102 mmol/L (98-107); CREATININE 0.95 mg/dL (0.60-1.30); GLOMERULAR FILTR. RATE CALC > 60 mL/min (>60); GLUCOSE,RANDOM 149 mg/dL (70-110); POTASSIUM 3.7 mmol/L (3.5-5.1); SODIUM SERUM 136 mmol/L (136-145); UREA NITROGEN, BLOOD 18 mg/dL (7-18)
[2019-02-01 05:11] LABS: ALANINE AMINOTRANSFERASE 25 U/L (12-78); ALBUMIN 3.3 g/dL (3.4-5.0); ALKALINE PHOSPHATASE 110 U/L (46-116); ASPARTATE AMINOTRANSFERASE 8 U/L (15-37); BILIRUBIN,TOTAL 0.1 mg/dL (0.1-1.0); TOTAL PROTEIN, SERUM 7.3 g/dL (6.4-8.2)
[2019-02-01 05:45] LABS: APPEARANCE,URINE CLEAR (CLEAR); BILIRUBIN,URINE NEGATIVE (NEGATIVE); GLUCOSE, URINE (UA) NEGATIVE (NEGATIVE); KETONES,URINE NEGATIVE (NEGATIVE); LEUKOCYTE ESTERASE ,URINE NEGATIVE (NEGATIVE); NITRATE,URINE NEGATIVE (NEGATIVE); OCCULT BLOOD,URINE NEGATIVE (NEGATIVE); PROTEIN,URINE NEGATIVE (NEGATIVE); UROBILINOGEN,URINE 0.2 mg/dL (<=1.0)
[2019-02-01 05:51] LABS: AMPHET/METH SCREEN,URINE NEGATIVE (NEGATIVE); BARBITURATE SCREEN, URINE NEGATIVE (NEGATIVE); BENZODIAZEPINES SCREEN,URINE NEGATIVE (NEGATIVE); CANNABINOID SCREEN,URINE NEGATIVE (NEGATIVE); COCAINE SCREEN,URINE NEGATIVE (NEGATIVE); METHADONE SCREEN, URINE NEGATIVE (NEGATIVE); OPIATE SCREEN,URINE NEGATIVE (NEGATIVE)
[2019-02-01 05:54] LABS: PHENCYCLIDINE SCREEN,URINE NEGATIVE (NEGATIVE)
[2019-02-01 08:02] LABS: GLUCOSE,POINT OF CARE 139 MG/DL (70-110)
[2019-02-01] MEDS ORDERED: ZOLPIDEM TARTRATE 10 MG TABLET PO PRN (09:45)
[2019-02-01] MEDS ORDERED: HALOPERIDOL 5 MG TABLET PO PRN (09:45)
[2019-02-01] MEDS: SERTRALINE HCL 50 MG TABLET PO SCH (10:12)
[2019-02-01] MEDS: GABAPENTIN 100 MG CAPSULE PO SCH ×2 (16:25→20:53)
[2019-02-01] MEDS: ZIPRASIDONE HCL 40 MG CAPSULE PO SCH (17:16)
[2019-02-01 19:17] LABS: GLUCOSE,POINT OF CARE 175 MG/DL (70-110)
[2019-02-01] MEDS: BENZTROPINE MESYLATE 2 MG TABLET PO SCH (20:53)
[2019-02-02 02:02] VITALS: BP 145/85
[2019-02-02] MEDS ORDERED: INFLUENZA VIRUS VACCINE QVS 2019-20 (3YR+)/PF 60 MCG/0.5 ML SYRINGE IM ONE (03:30)
[2019-02-02 03:39] VITALS: BP 145/85
[2019-02-02 07:11] LABS: CHOL/HDL RATIO 3.4 (3.9-5.7)
[2019-02-02 07:26] LABS: HEMOGLOBIN A1C 7.8 % (4.5-6.2)
[2019-02-02 08:00] VITALS: BP 117/75
[2019-02-02] MEDS ORDERED: ALBUTEROL SULFATE HFA 90 MCG/PUFF 8 GM INHALER IH PRN (09:15)
[2019-02-02] MEDS ORDERED: BACITRACIN 28.4 GM OINTMENT TP PRN (09:15)
[2019-02-02] MEDS ORDERED: CloNIDine HCL 0.1 MG TABLET PO PRN (09:15)
[2019-02-02] MEDS ORDERED: LOPERAMIDE HCL 2 MG CAPSULE PO PRN (09:15)
[2019-02-02] MEDS ORDERED: BENZOCAINE/MENTHOL LOZENGE MM PRN (09:15)
[2019-02-02] MEDS ORDERED: ONDANSETRON HCL 4 MG TABLET PO PRN (09:15)
[2019-02-02] MEDS ORDERED: IBUPROFEN 600 MG TABLET PO PRN (09:15)
[2019-02-02] MEDS ORDERED: MAG HYDROX/AL HYDROX/SIMETH ES 30 ML SUSPENSION UDCUP PO PRN (09:15)
[2019-02-02] MEDS ORDERED: PETROLATUM,WHITE 28 GM JELLY TP PRN (09:15)
[2019-02-02] MEDS ORDERED: OMEPRAZOLE 20 MG CAPSULE PO PRN (09:15)
[2019-02-02 09:52] VITALS: BP 117/75
[2019-02-02] MEDS: BENZTROPINE MESYLATE 2 MG TABLET PO SCH ×2 (09:57→17:22)
[2019-02-02] MEDS: GABAPENTIN 100 MG CAPSULE PO SCH ×3 (09:58→17:22)
[2019-02-02] MEDS: SERTRALINE HCL 50 MG TABLET PO SCH (09:58)
[2019-02-02] MEDS: ZIPRASIDONE HCL 40 MG CAPSULE PO SCH ×2 (09:58→17:22)
[2019-02-02] MEDS: MAGNESIUM HYDROXIDE SUSPENSION 30 ML UDCUP PO PRN (10:06)
[2019-02-02] MEDS: DOCUSATE SODIUM 100 MG CAPSULE PO PRN (10:06)
[2019-02-02] MEDS: LORazepam 2 MG TABLET PO PRN (10:52)
[2019-02-02] MEDS: MetFORMIN HCL 500 MG TABLET PO SCH (17:21)
[2019-02-02 19:54] VITALS: BP 100/64
[2019-02-03 01:49] VITALS: BP 99/61
[2019-02-03] MEDS: MetFORMIN HCL 500 MG TABLET PO SCH ×2 (07:03→17:26)
[2019-02-03] MEDS: ZIPRASIDONE HCL 40 MG CAPSULE PO SCH (07:03)
[2019-02-03] MEDS: GABAPENTIN 100 MG CAPSULE PO SCH ×3 (09:31→17:24)
[2019-02-03] MEDS: BENZTROPINE MESYLATE 2 MG TABLET PO SCH ×2 (09:31→17:24)
[2019-02-03] MEDS: SERTRALINE HCL 50 MG TABLET PO SCH (09:31)
[2019-02-03] MEDS: LISINOPRIL 5 MG TABLET PO SCH (09:31)
[2019-02-03 10:53] VITALS: BP 132/93
[2019-02-03] MEDS ORDERED: SERTRALINE HCL 50 MG TABLET PO ONE (11:15)
[2019-02-03] MEDS ORDERED: ZIPRASIDONE HCL 20 MG CAPSULE PO ONE (12:00)
[2019-02-03] MEDS: MAGNESIUM HYDROXIDE SUSPENSION 30 ML UDCUP PO PRN (13:36)
[2019-02-03] MEDS: DOCUSATE SODIUM 100 MG CAPSULE PO PRN (13:37)
[2019-02-03] MEDS ORDERED: MAGNESIUM CITRATE 300 ML ORAL SOLUTION PO ONE (14:00)
[2019-02-03] MEDS: ZIPRASIDONE HCL 60 MG CAPSULE PO SCH (17:20)
[2019-02-03] MEDS: LORazepam 2 MG TABLET PO PRN (18:08)
[2019-02-03 18:25] VITALS: BP 121/70
[2019-02-03] MEDS: ACETAMINOPHEN 325 MG TABLET PO PRN (18:43)
[2019-02-04] MEDS: ZIPRASIDONE HCL 60 MG CAPSULE PO SCH ×2 (07:01→16:55)
[2019-02-04] MEDS: MetFORMIN HCL 500 MG TABLET PO SCH ×2 (07:01→16:55)
[2019-02-04 08:52] VITALS: BP 131/83
[2019-02-04] MEDS: LISINOPRIL 5 MG TABLET PO SCH (09:28)
[2019-02-04] MEDS: GABAPENTIN 100 MG CAPSULE PO SCH ×3 (09:28→16:56)
[2019-02-04] MEDS: BENZTROPINE MESYLATE 2 MG TABLET PO SCH ×2 (09:29→16:56)
[2019-02-04] MEDS: SERTRALINE HCL 100 MG TABLET PO SCH (10:51)
[2019-02-04] MEDS: LORazepam 2 MG TABLET PO PRN ×2 (12:51→20:38)
[2019-02-04 17:10] VITALS: BP 115/62
[2019-02-04 18:50] VITALS: BP 124/73
[2019-02-04] MEDS: ACETAMINOPHEN 325 MG TABLET PO PRN (18:56)
[2019-02-04 20:35] VITALS: BP 132/68
[2019-02-05] MEDS: ZIPRASIDONE HCL 60 MG CAPSULE PO SCH (06:50)
[2019-02-05] MEDS: MetFORMIN HCL 500 MG TABLET PO SCH (06:50)
[2019-02-05] MEDS: GABAPENTIN 100 MG CAPSULE PO SCH ×2 (09:24→12:35)
[2019-02-05] MEDS: LISINOPRIL 5 MG TABLET PO SCH (09:25)
[2019-02-05] MEDS: BENZTROPINE MESYLATE 2 MG TABLET PO SCH (09:25)
[2019-02-05] MEDS: SERTRALINE HCL 100 MG TABLET PO SCH (09:25)
[2019-02-05 09:28] VITALS: BP 113/82
[2019-02-05] MEDS ORDERED: BENZ2TAB10 PO (12:39)
[2019-02-05] MEDS ORDERED: SERT100T12 PO (12:39)
[2019-02-05] MEDS ORDERED: ZIPR60CA2 PO (12:39)
== END 2019-02-05 13:46 | disposition home or self-care (01) | DRG 885 ==
LOC: EMS 03:43 → 3EI 02-02 01:02 → EDBD 02-02 01:02
PROVIDERS: ADMIT Psychiatry & Neurology Psychiatry; ATTEND Psychiatry & Neurology Psychiatry
DX: F20.9 Schizophrenia, unspecified (principal); R45.851 Suicidal ideations; E78.5 Hyperlipidemia, unspecified; E11.9 Type 2 diabetes mellitus without complications; F41.9 Anxiety disorder, unspecified; K59.00 Constipation, unspecified; I10 Essential (primary) hypertension; J44.9 Chronic obstructive pulmonary disease, unspecified; G47.00 Insomnia, unspecified; F31.9 Bipolar disorder, unspecified; D72.829 Elevated white blood cell count, unspecified; F17.210 Nicotine dependence, cigarettes, uncomplicated; Z79.84 Long term (current) use of oral hypoglycemic drugs; Z79.899 Other long term (current) drug therapy; Z88.0 Allergy status to penicillin; Z91.041 Radiographic dye allergy status
CPT/HCPCS: 83036; 87081; G0480; J1200; J1630; J2060; J3535

== ENCOUNTER 2019-02-14 23:29 | Emergency (ER) | payer MEDICAID ==
[~2019-02-14] VITALS: Ht 165.1 cm; Wt 104.5 kg
[~2019-02-14 23:29] MED LIST changes: -BENZ1TAB10 PO; +BENZ2TAB10 PO; +SERT100T12 PO; -SERT50TA12 PO; -ZIPR40CA2 PO; +ZIPR60CA2 PO
[2019-02-14 23:52] VITALS: BP 147/85
== END 2019-02-15 03:00 | disposition left against medical advice (07) ==
LOC: EMS 23:31
DX: R44.0 Auditory hallucinations (principal); Z53.21 Procedure and treatment not carried out due to patient leaving prior to being seen by health care provider

== ENCOUNTER 2019-02-15 06:26 | Emergency (ER) | payer MEDICAID, OTHER ==
[~2019-02-15] VITALS: Ht 160 cm; Wt 104.5 kg
[2019-02-15 07:22] VITALS: BP 150/87
[2019-02-15 07:32] LABS: GLUCOSE,POINT OF CARE 187 MG/DL (70-110)
[2019-02-15 11:25] LABS: APPEARANCE,URINE CLOUDY (CLEAR); BILIRUBIN,URINE NEGATIVE (NEGATIVE); GLUCOSE, URINE (UA) NEGATIVE (NEGATIVE); KETONES,URINE 15 mg/dL (NEGATIVE); LEUKOCYTE ESTERASE ,URINE MODERATE (NEGATIVE); NITRATE,URINE NEGATIVE (NEGATIVE); OCCULT BLOOD,URINE MODERATE (NEGATIVE); PROTEIN,URINE POS 1+ (NEGATIVE); UROBILINOGEN,URINE 0.2 mg/dL (<=1.0)
[2019-02-15] MEDS ORDERED: CEPHALEXIN MONOHYDRATE 500 MG CAPSULE PO ONE (11:30)
[2019-02-15 11:41] LABS: BACTERIA,URINE Moderate /HPF (None Seen)
[2019-02-15 11:42] LABS: SQUAMOUS EPITHELIAL CELL,UR Many /LPF (None Seen)
== END 2019-02-15 12:28 | disposition home or self-care (01) ==
LOC: EMS 06:27
DX: N39.0 Urinary tract infection, site not specified (principal); J02.9 Acute pharyngitis, unspecified; E11.9 Type 2 diabetes mellitus without complications; I10 Essential (primary) hypertension; F20.9 Schizophrenia, unspecified; F41.9 Anxiety disorder, unspecified; F31.9 Bipolar disorder, unspecified; F17.210 Nicotine dependence, cigarettes, uncomplicated; F15.90 Other stimulant use, unspecified, uncomplicated; F12.90 Cannabis use, unspecified, uncomplicated; Z98.890 Other specified postprocedural states; Z79.899 Other long term (current) drug therapy; Z88.0 Allergy status to penicillin; Z91.041 Radiographic dye allergy status; Z91.011 Allergy to milk products
CPT/HCPCS: 87086

== ENCOUNTER 2019-04-09 14:41 | Inpatient (IN) | payer MEDICAID, OTHER ==
[~2019-04-09] VITALS: Ht 161.3 cm; Wt 94.3 kg
[2019-04-09 17:37] LABS: BASOPHILS % (AUTO) 0.4 % (0.0-2.0); EOSINOPHILS % (AUTO) 0.4 % (1.0-6.0); HEMOGLOBIN 13.8 g/dL (12.0-16.0); LYMPHOCYTES # (AUTO) 2.9 K/uL (1.0-4.8); LYMPHOCYTES % (AUTO) 21.3 % (22.0-44.0); MEAN CORPUSCULAR HEMOGLOBIN 30.2 pg (26.0-34.0); MEAN CORPUSCULAR HGB CONC 33.6 G/dL (31.0-37.0); MEAN CORPUSCULAR VOLUME 90 fL (80-100); MONOCYTES # (AUTO) 0.5 K/uL (0.1-1.0); NEUTROPHILS # (AUTO) 10.2 K/uL (1.8-7.7); NEUTROPHILS % (AUTO) 73.9 % (40.0-70.0); PLATELET COUNT (AUTO) 363 K/uL (150-450); RED BLOOD CELL COUNT(AUTO) 4.56 MIL/uL (4.00-5.20); RED CELL DISTRIBUTION WIDTH 14.6 % (11.5-14.5)
[2019-04-09 17:42] LABS: AMPHET/METH SCREEN,URINE NEGATIVE (NEGATIVE); BARBITURATE SCREEN, URINE NEGATIVE (NEGATIVE); BENZODIAZEPINES SCREEN,URINE NEGATIVE (NEGATIVE); CANNABINOID SCREEN,URINE NEGATIVE (NEGATIVE); COCAINE SCREEN,URINE NEGATIVE (NEGATIVE); METHADONE SCREEN, URINE NEGATIVE (NEGATIVE); OPIATE SCREEN,URINE NEGATIVE (NEGATIVE)
[2019-04-09 17:44] LABS: PHENCYCLIDINE SCREEN,URINE NEGATIVE (NEGATIVE)
[2019-04-09 17:46] LABS: ANION GAP 8 mmol/L (8-16); CALCIUM, TOTAL 10.5 mg/dL (8.8-10.5); CARBON DIOXIDE 27 mmol/L (22-29); CHLORIDE 101 mmol/L (98-107); CREATININE 0.85 mg/dL (0.60-1.30); GLOMERULAR FILTR. RATE CALC > 60 mL/min (>60); GLUCOSE,RANDOM 215 mg/dL (70-110); POTASSIUM 4.5 mmol/L (3.5-5.1); SODIUM SERUM 136 mmol/L (136-145); UREA NITROGEN, BLOOD 20 mg/dL (7-18)
[2019-04-09 17:52] LABS: ALANINE AMINOTRANSFERASE 40 U/L (12-78); ALBUMIN 3.8 g/dL (3.4-5.0); ALKALINE PHOSPHATASE 93 U/L (46-116); ASPARTATE AMINOTRANSFERASE 25 U/L (15-37); BILIRUBIN,TOTAL 0.2 mg/dL (0.1-1.0); TOTAL PROTEIN, SERUM 8.1 g/dL (6.4-8.2)
[2019-04-09 17:59] LABS: B-TYPE NATRIURETIC PEPTIDE < 5 pg/mL (0-100)
[2019-04-09] MEDS ORDERED: HALOPERIDOL LACTATE 5 MG/ML VIAL ONE (19:18)
[2019-04-09] MEDS ORDERED: LORazepam 2 MG/ML VIAL ONE (19:18)
[2019-04-09] MEDS ORDERED: DiphenhydrAMINE HCL 50 MG/ML VIAL ONE (19:18)
[2019-04-09] MEDS ORDERED: LORazepam 2 MG/ML VIAL IM ONE (19:30)
[2019-04-09] MEDS ORDERED: DiphenhydrAMINE HCL 50 MG/ML VIAL IM ONE (19:30)
[2019-04-09] MEDS ORDERED: HALOPERIDOL LACTATE 5 MG/ML VIAL IM ONE (19:30)
[2019-04-10] MEDS ORDERED: INFLUENZA VIRUS VACCINE QVS 2019-20 (3YR+)/PF 60 MCG/0.5 ML SYRINGE IM ONE (01:15)
[2019-04-10] MEDS ORDERED: -PHARMACY VACCINE NOTE- MISC ONE (01:15)
[2019-04-10 01:31] VITALS: BP 133/56
[2019-04-10 07:50] LABS: CHOL/HDL RATIO 3.5 (3.9-5.7)
[2019-04-10] MEDS: LISINOPRIL 5 MG TABLET PO SCH (08:21)
[2019-04-10 08:57] VITALS: BP 130/82
[2019-04-10] MEDS: LORazepam 2 MG TABLET PO PRN ×2 (11:28→19:45)
[2019-04-10] MEDS: HALOPERIDOL 5 MG TABLET PO PRN (11:28)
[2019-04-10] MEDS ORDERED: ALBUTEROL SULFATE HFA 90 MCG/PUFF 8 GM INHALER IH PRN (13:45)
[2019-04-10] MEDS ORDERED: CloNIDine HCL 0.1 MG TABLET PO PRN (13:45)
[2019-04-10] MEDS ORDERED: PETROLATUM,WHITE 28 GM JELLY TP PRN (13:45)
[2019-04-10] MEDS ORDERED: DOCUSATE SODIUM 100 MG CAPSULE PO PRN (13:45)
[2019-04-10] MEDS ORDERED: GuaiFENesin/D-METHORPHAN [SUGAR-FREE] 200-20MG/10 ML SYRUP UDCUP PO PRN (13:45)
[2019-04-10] MEDS ORDERED: LOPERAMIDE HCL 2 MG CAPSULE PO PRN (13:45)
[2019-04-10] MEDS ORDERED: NICOTINE 14 MG/24 HOUR PATCH TD PRN (13:45)
[2019-04-10] MEDS ORDERED: ONDANSETRON HCL 4 MG TABLET PO PRN (13:45)
[2019-04-10] MEDS ORDERED: MAGNESIUM HYDROXIDE SUSPENSION 30 ML UDCUP PO PRN (13:45)
[2019-04-10] MEDS ORDERED: IBUPROFEN 400 MG TABLET PO PRN (13:45)
[2019-04-10] MEDS ORDERED: MAG HYDROX/AL HYDROX/SIMETH ES 30 ML SUSPENSION UDCUP PO PRN (13:45)
[2019-04-10] MEDS: MetFORMIN HCL 500 MG TABLET PO SCH (16:31)
[2019-04-10 17:36] LABS: GLUCOMETER DEV NAME(LOC) 3E.C; GLUCOSE,POINT OF CARE 192 MG/DL (70-110)
[2019-04-10] MEDS: ZIPRASIDONE HCL 60 MG CAPSULE PO SCH (20:24)
[2019-04-11] MEDS: ZIPRASIDONE HCL 60 MG CAPSULE PO SCH ×2 (06:44→16:56)
[2019-04-11] MEDS: MetFORMIN HCL 500 MG TABLET PO SCH ×2 (06:44→16:56)
[2019-04-11 06:52] LABS: GLUCOMETER DEV NAME(LOC) 3E.C; GLUCOSE,POINT OF CARE 138 MG/DL (70-110)
[2019-04-11] MEDS: LISINOPRIL 5 MG TABLET PO SCH (08:34)
[2019-04-11] MEDS: DIVALPROEX SODIUM 500 MG DR TABLET PO SCH ×2 (08:35→16:56)
[2019-04-11 17:07] LABS: GLUCOMETER DEV NAME(LOC) 3E.C; GLUCOSE,POINT OF CARE 139 MG/DL (70-110)
[2019-04-11] MEDS: LORazepam 2 MG TABLET PO PRN (17:37)
[2019-04-12 06:34] LABS: GLUCOMETER DEV NAME(LOC) 3E.C; GLUCOSE,POINT OF CARE 94 MG/DL (70-110)
[2019-04-12] MEDS: MetFORMIN HCL 500 MG TABLET PO SCH ×2 (07:21→17:46)
[2019-04-12] MEDS: ZIPRASIDONE HCL 60 MG CAPSULE PO SCH ×2 (07:21→16:09)
[2019-04-12] MEDS: DIVALPROEX SODIUM 500 MG DR TABLET PO SCH ×2 (09:25→16:09)
[2019-04-12] MEDS: LISINOPRIL 5 MG TABLET PO SCH (09:25)
[2019-04-12 12:39] VITALS: BP 133/74
[2019-04-12] MEDS: HALOPERIDOL 5 MG TABLET PO PRN (16:10)
[2019-04-12] MEDS: LORazepam 2 MG TABLET PO PRN (16:10)
[2019-04-12 16:53] VITALS: BP 143/76
[2019-04-12 18:32] LABS: GLUCOMETER DEV NAME(LOC) 3E.C; GLUCOSE,POINT OF CARE 168 MG/DL (70-110)
[2019-04-13] MEDS: ZIPRASIDONE HCL 60 MG CAPSULE PO SCH ×2 (06:55→16:55)
[2019-04-13] MEDS: MetFORMIN HCL 500 MG TABLET PO SCH ×2 (06:55→16:55)
[2019-04-13 06:58] LABS: GLUCOMETER DEV NAME(LOC) 3E.C; GLUCOSE,POINT OF CARE 97 MG/DL (70-110)
[2019-04-13 07:03] LABS: BASOPHILS % (AUTO) 0.4 % (0.0-2.0); EOSINOPHILS % (AUTO) 1.2 % (1.0-6.0); HEMATOCRIT 41.1 % (36-46); HEMOGLOBIN 13.6 g/dL (12.0-16.0); LYMPHOCYTES % (AUTO) 22.4 % (22.0-44.0); MEAN CORPUSCULAR HEMOGLOBIN 29.9 pg (26.0-34.0); MEAN CORPUSCULAR VOLUME 91 fL (80-100); MONOCYTES # (AUTO) 0.6 K/uL (0.1-1.0); MONOCYTES % (AUTO) 4.2 % (2.0-9.0); NEUTROPHILS # (AUTO) 9.5 K/uL (1.8-7.7); NEUTROPHILS % (AUTO) 71.8 % (40.0-70.0); PLATELET COUNT (AUTO) 322 K/uL (150-450); RED BLOOD CELL COUNT(AUTO) 4.53 MIL/uL (4.00-5.20); RED CELL DISTRIBUTION WIDTH 14.3 % (11.5-14.5)
[2019-04-13] MEDS: LISINOPRIL 5 MG TABLET PO SCH (09:23)
[2019-04-13] MEDS: DIVALPROEX SODIUM 500 MG DR TABLET PO SCH ×2 (09:23→16:55)
[2019-04-13] MEDS: LORazepam 2 MG TABLET PO PRN (12:39)
[2019-04-13] MEDS: ACETAMINOPHEN 325 MG TABLET PO PRN ×2 (12:39→21:16)
[2019-04-13 13:57] VITALS: BP 119/64
[2019-04-13 14:00] VITALS: BP 119/64
[2019-04-13 16:14] LABS: GLUCOMETER DEV NAME(LOC) 3E.C; GLUCOSE,POINT OF CARE 144 MG/DL (70-110)
[2019-04-13 19:44] LABS: APPEARANCE,URINE CLEAR (CLEAR); BILIRUBIN,URINE NEGATIVE (NEGATIVE); GLUCOSE, URINE (UA) NEGATIVE (NEGATIVE); KETONES,URINE NEGATIVE (NEGATIVE); LEUKOCYTE ESTERASE ,URINE NEGATIVE (NEGATIVE); NITRATE,URINE NEGATIVE (NEGATIVE); OCCULT BLOOD,URINE NEGATIVE (NEGATIVE); PROTEIN,URINE NEGATIVE (NEGATIVE); UROBILINOGEN,URINE 0.2 mg/dL (<=1.0)
[2019-04-13] MEDS: ZOLPIDEM TARTRATE 10 MG TABLET PO PRN (21:17)
[2019-04-14] MEDS: ZIPRASIDONE HCL 60 MG CAPSULE PO SCH ×2 (08:01→17:01)
[2019-04-14] MEDS: MetFORMIN HCL 500 MG TABLET PO SCH ×2 (08:02→17:01)
[2019-04-14] MEDS: DIVALPROEX SODIUM 500 MG DR TABLET PO SCH ×2 (09:09→17:00)
[2019-04-14] MEDS: LISINOPRIL 5 MG TABLET PO SCH (09:09)
[2019-04-14 16:33] VITALS: BP 95/62
[2019-04-14 17:02] LABS: GLUCOMETER DEV NAME(LOC) 3E.C; GLUCOSE,POINT OF CARE 107 MG/DL (70-110)
[2019-04-14 20:57] VITALS: BP 102/66
[2019-04-14] MEDS: ACETAMINOPHEN 325 MG TABLET PO PRN (21:01)
[2019-04-14] MEDS: ZOLPIDEM TARTRATE 10 MG TABLET PO PRN (22:05)
[2019-04-15] MEDS: MetFORMIN HCL 500 MG TABLET PO SCH ×2 (06:45→17:28)
[2019-04-15] MEDS: ZIPRASIDONE HCL 60 MG CAPSULE PO SCH ×2 (06:45→17:29)
[2019-04-15] MEDS: DIVALPROEX SODIUM 500 MG DR TABLET PO SCH ×2 (09:20→17:29)
[2019-04-15] MEDS: LISINOPRIL 5 MG TABLET PO SCH (09:20)
[2019-04-15] MEDS: LORazepam 2 MG TABLET PO PRN (12:17)
[2019-04-15 16:26] VITALS: BP 101/57
[2019-04-15 17:05] LABS: GLUCOMETER DEV NAME(LOC) 3E.C; GLUCOSE,POINT OF CARE 132 MG/DL (70-110)
[2019-04-16] MEDS: ZIPRASIDONE HCL 60 MG CAPSULE PO SCH ×2 (06:55→16:33)
[2019-04-16] MEDS: MetFORMIN HCL 500 MG TABLET PO SCH ×2 (06:57→16:33)
[2019-04-16] MEDS: DIVALPROEX SODIUM 500 MG DR TABLET PO SCH ×2 (09:00→16:33)
[2019-04-16] MEDS: LISINOPRIL 5 MG TABLET PO SCH (09:00)
[2019-04-16] MEDS: ACETAMINOPHEN 325 MG TABLET PO PRN (14:15)
[2019-04-16 16:19] VITALS: BP 109/65
[2019-04-16 17:20] LABS: GLUCOMETER DEV NAME(LOC) 3E.C; GLUCOSE,POINT OF CARE 215 MG/DL (70-110)
[2019-04-16] MEDS: LORazepam 2 MG TABLET PO PRN (21:44)
[2019-04-16] MEDS: ZOLPIDEM TARTRATE 10 MG TABLET PO PRN (23:25)
[2019-04-17] MEDS: MetFORMIN HCL 500 MG TABLET PO SCH ×4 (06:45→17:34)
[2019-04-17] MEDS: ZIPRASIDONE HCL 60 MG CAPSULE PO SCH ×4 (06:45→17:35)
[2019-04-17 08:49] VITALS: BP 150/76
[2019-04-17] MEDS: DIVALPROEX SODIUM 500 MG DR TABLET PO SCH ×4 (09:25→17:35)
[2019-04-17] MEDS: LISINOPRIL 5 MG TABLET PO SCH (09:25)
[2019-04-17 16:00] VITALS: BP 130/72
[2019-04-17 16:57] LABS: GLUCOMETER DEV NAME(LOC) 3E.C; GLUCOSE,POINT OF CARE 227 MG/DL (70-110)
[2019-04-17] MEDS ORDERED: DIVA125C PO (17:47)
[2019-04-17] MEDS ORDERED: VALP250C48 PO (17:48)
== END 2019-04-17 19:45 | disposition home or self-care (01) | DRG 885 ==
LOC: EDBD → EMS 14:44 → 3EC 23:00
PROVIDERS: ADMIT Psychiatry & Neurology Psychiatry; ATTEND Psychiatry & Neurology Psychiatry
DX: F25.9 Schizoaffective disorder, unspecified (principal); E11.65 Type 2 diabetes mellitus with hyperglycemia; D72.829 Elevated white blood cell count, unspecified; E66.9 Obesity, unspecified; F12.90 Cannabis use, unspecified, uncomplicated; F17.200 Nicotine dependence, unspecified, uncomplicated; F31.9 Bipolar disorder, unspecified; I10 Essential (primary) hypertension; F41.9 Anxiety disorder, unspecified; F15.90 Other stimulant use, unspecified, uncomplicated; F19.10 Other psychoactive substance abuse, uncomplicated; Z71.51 Drug abuse counseling and surveillance of drug abuser; Z88.0 Allergy status to penicillin; Z91.041 Radiographic dye allergy status; Z91.011 Allergy to milk products
CPT/HCPCS: 73502; 83036; 93005; 99291; G0480; J1200; J1630; J2060

== ENCOUNTER 2019-04-23 12:47 | Inpatient (IN) | payer MEDICAID, OTHER ==
[~2019-04-23] VITALS: Ht 160 cm; Wt 94.3 kg
[~2019-04-23 12:47] MED LIST changes: -BENZ2TAB10 PO; -GABA-531 PO; -SERT100T12 PO; +VALP250C48 PO
[2019-04-23] MEDS ORDERED: DiphenhydrAMINE HCL 50 MG/ML VIAL ONE (13:23)
[2019-04-23] MEDS ORDERED: HALOPERIDOL LACTATE 5 MG/ML VIAL ONE (13:23)
[2019-04-23] MEDS ORDERED: LORazepam 2 MG/ML VIAL ONE (13:23)
[2019-04-23] MEDS ORDERED: LORazepam 2 MG/ML VIAL IM ONE ×2 (13:30→18:00)
[2019-04-23] MEDS ORDERED: HALOPERIDOL LACTATE 5 MG/ML VIAL IM ONE ×2 (13:30→18:00)
[2019-04-23] MEDS ORDERED: DiphenhydrAMINE HCL 50 MG/ML VIAL IM ONE ×2 (13:30→18:00)
[2019-04-23] MEDS ORDERED: HALOPERIDOL 5 MG TABLET PO PRN (14:15)
[2019-04-23] MEDS ORDERED: ZOLPIDEM TARTRATE 10 MG TABLET PO PRN (14:15)
[2019-04-23] MEDS: LORazepam 2 MG TABLET PO PRN (14:32)
[2019-04-23] MEDS ORDERED: LORazepam 2 MG TABLET PO ONE (14:45)
[2019-04-23] MEDS: DIVALPROEX SODIUM 500 MG DR TABLET PO SCH (17:55)
[2019-04-23 18:55] VITALS: BP 104/64
[2019-04-23] MEDS ORDERED: -PHARMACY VACCINE NOTE- MISC ONE (19:00)
[2019-04-23] MEDS ORDERED: INFLUENZA VIRUS VACCINE QVS 2019-20 (3YR+)/PF 60 MCG/0.5 ML SYRINGE IM ONE (19:00)
[2019-04-24 05:08] VITALS: BP 115/63
[2019-04-24] MEDS: MetFORMIN HCL 500 MG TABLET PO SCH ×2 (06:12→17:17)
[2019-04-24] MEDS: ZIPRASIDONE HCL 60 MG CAPSULE PO SCH ×2 (06:15→17:16)
[2019-04-24 08:09] VITALS: BP 126/74
[2019-04-24] MEDS: DIVALPROEX SODIUM 500 MG DR TABLET PO SCH ×2 (09:05→17:17)
[2019-04-24] MEDS: LISINOPRIL 5 MG TABLET PO SCH (09:05)
[2019-04-24] MEDS ORDERED: INSULIN LISPRO 100 UNITS/ML SQ PRN (10:30)
[2019-04-24] MEDS ORDERED: GLUCAGON,HUMAN RECOMBINANT 1 MG VIAL IM PRN (10:45)
[2019-04-24] MEDS ORDERED: CloNIDine HCL 0.1 MG TABLET PO PRN (12:00)
[2019-04-24] MEDS ORDERED: NICOTINE 14 MG/24 HOUR PATCH TD PRN (12:00)
[2019-04-24] MEDS ORDERED: MAGNESIUM HYDROXIDE SUSPENSION 30 ML UDCUP PO PRN (12:00)
[2019-04-24] MEDS ORDERED: LOPERAMIDE HCL 2 MG CAPSULE PO PRN (12:00)
[2019-04-24] MEDS ORDERED: ALBUTEROL SULFATE HFA 90 MCG/PUFF 8 GM INHALER IH PRN (12:00)
[2019-04-24] MEDS ORDERED: PETROLATUM,WHITE 28 GM JELLY TP PRN (12:00)
[2019-04-24] MEDS ORDERED: ONDANSETRON HCL 4 MG TABLET PO PRN (12:00)
[2019-04-24] MEDS ORDERED: GuaiFENesin/D-METHORPHAN [SUGAR-FREE] 200-20MG/10 ML SYRUP UDCUP PO PRN (12:00)
[2019-04-24] MEDS ORDERED: IBUPROFEN 400 MG TABLET PO PRN (12:00)
[2019-04-24] MEDS ORDERED: DOCUSATE SODIUM 100 MG CAPSULE PO PRN (12:00)
[2019-04-24] MEDS ORDERED: MAG HYDROX/AL HYDROX/SIMETH ES 30 ML SUSPENSION UDCUP PO PRN (12:00)
[2019-04-24] MEDS: INSULIN LISPRO 100 UNITS/ML SQ PRN ×3 (12:18→22:06)
[2019-04-24 12:31] LABS: GLUCOMETER DEV NAME(LOC) BV3N.; GLUCOSE,POINT OF CARE 150 MG/DL (70-110)
[2019-04-24 16:01] VITALS: BP 102/60
[2019-04-24] MEDS ORDERED: ZIPRASIDONE HCL 60 MG CAPSULE PO SCH (17:00)
[2019-04-24] MEDS ORDERED: DIVALPROEX SODIUM 500 MG DR TABLET PO SCH (17:00)
[2019-04-24 17:04] LABS: GLUCOMETER DEV NAME(LOC) BV3N.; GLUCOSE,POINT OF CARE 165 MG/DL (70-110)
[2019-04-25 00:14] LABS: GLUCOMETER DEV NAME(LOC) BV3N.; GLUCOSE,POINT OF CARE 189 MG/DL (70-110)
[2019-04-25 03:42] VITALS: BP_SYST 100; BP_SYST 116; BP_DIAS 72; BP_DIAS 75
[2019-04-25] MEDS: MetFORMIN HCL 500 MG TABLET PO SCH ×2 (06:35→16:09)
[2019-04-25] MEDS: ZIPRASIDONE HCL 60 MG CAPSULE PO SCH ×2 (06:35→21:45)
[2019-04-25 06:40] LABS: GLUCOMETER DEV NAME(LOC) BV3N.; GLUCOSE,POINT OF CARE 138 MG/DL (70-110)
[2019-04-25 08:18] VITALS: BP 126/79
[2019-04-25] MEDS: LISINOPRIL 5 MG TABLET PO SCH (09:00)
[2019-04-25] MEDS: DIVALPROEX SODIUM 500 MG DR TABLET PO SCH ×2 (09:00→16:09)
[2019-04-25] MEDS ORDERED: LISI-660 PO (09:11)
[2019-04-25] MEDS ORDERED: ZIPR60CA2 PO (09:11)
[2019-04-25] MEDS ORDERED: DIVA-78 PO (09:11)
[2019-04-25] MEDS ORDERED: METF-463 PO (09:11)
[2019-04-25] MEDS ORDERED: LISI-661 PO (12:44)
[2019-04-25] MEDS ORDERED: METF-960 PO (12:44)
[2019-04-25 16:09] VITALS: BP 119/80
[2019-04-25] MEDS: INSULIN LISPRO 100 UNITS/ML SQ PRN (16:21)
[2019-04-25 16:29] LABS: GLUCOMETER DEV NAME(LOC) BV3N.; GLUCOSE,POINT OF CARE 143 MG/DL (70-110)
[2019-04-25] MEDS: ACETAMINOPHEN 325 MG TABLET PO PRN ×2 (17:16→18:37)
[2019-04-25 18:37] VITALS: BP 117/67
[2019-04-25] MEDS: LORazepam 2 MG TABLET PO PRN (18:37)
[2019-04-25 20:19] LABS: GLUCOMETER DEV NAME(LOC) BV3N.; GLUCOSE,POINT OF CARE 76 MG/DL (70-110)
[2019-04-26 05:57] VITALS: BP 121/68
[2019-04-26 06:32] LABS: GLUCOMETER DEV NAME(LOC) BV3N.; GLUCOSE,POINT OF CARE 92 MG/DL (70-110)
[2019-04-26] MEDS: MetFORMIN HCL 500 MG TABLET PO SCH ×2 (06:59→16:35)
[2019-04-26] MEDS: ZIPRASIDONE HCL 60 MG CAPSULE PO SCH ×2 (06:59→16:35)
[2019-04-26] MEDS: LISINOPRIL 5 MG TABLET PO SCH (08:51)
[2019-04-26] MEDS: DIVALPROEX SODIUM 500 MG DR TABLET PO SCH ×2 (08:51→16:35)
[2019-04-26 11:08] LABS: GLUCOMETER DEV NAME(LOC) BV3N.; GLUCOSE,POINT OF CARE 120 MG/DL (70-110)
[2019-04-26 12:25] VITALS: BP 110/69
[2019-04-26 14:59] VITALS: BP 106/62
[2019-04-26] MEDS: ACETAMINOPHEN 325 MG TABLET PO PRN ×2 (14:59→21:22)
[2019-04-26] MEDS: LORazepam 2 MG TABLET PO PRN (15:00)
[2019-04-26 16:04] VITALS: BP 128/74
[2019-04-26 16:55] LABS: GLUCOMETER DEV NAME(LOC) BV3N.; GLUCOSE,POINT OF CARE 137 MG/DL (70-110)
[2019-04-26 20:36] LABS: GLUCOMETER DEV NAME(LOC) BV3N.; GLUCOSE,POINT OF CARE 96 MG/DL (70-110)
[2019-04-27 03:23] VITALS: BP 141/70
[2019-04-27] MEDS: MetFORMIN HCL 500 MG TABLET PO SCH ×2 (06:56→17:00)
[2019-04-27] MEDS: ZIPRASIDONE HCL 60 MG CAPSULE PO SCH ×2 (07:00→17:00)
[2019-04-27 08:26] VITALS: BP 116/71
[2019-04-27] MEDS: LISINOPRIL 5 MG TABLET PO SCH (08:46)
[2019-04-27] MEDS: DIVALPROEX SODIUM 500 MG DR TABLET PO SCH ×2 (08:46→17:00)
[2019-04-27 11:35] LABS: GLUCOMETER DEV NAME(LOC) BV3N.; GLUCOSE,POINT OF CARE 110 MG/DL (70-110)
[2019-04-27] MEDS: LORazepam 2 MG TABLET PO PRN (14:26)
[2019-04-27] MEDS: ACETAMINOPHEN 325 MG TABLET PO PRN (14:48)
[2019-04-27 15:37] VITALS: BP 135/70
[2019-04-27] MEDS ORDERED: LISI-660 PO (17:46)
== END 2019-04-27 16:10 | disposition home or self-care (01) | DRG 750 ==
LOC: EDUNIT# 12:47 → EDBD 12:49 → EMS 12:49 → B3A 16:37
PROVIDERS: ADMIT Psychiatry & Neurology Psychiatry; ATTEND Psychiatry & Neurology Psychiatry
DX: F25.9 Schizoaffective disorder, unspecified (principal); E11.9 Type 2 diabetes mellitus without complications; E78.5 Hyperlipidemia, unspecified; F10.10 Alcohol abuse, uncomplicated; F31.9 Bipolar disorder, unspecified; I10 Essential (primary) hypertension; J44.9 Chronic obstructive pulmonary disease, unspecified; K21.9 Gastro-esophageal reflux disease without esophagitis; F17.210 Nicotine dependence, cigarettes, uncomplicated; F19.10 Other psychoactive substance abuse, uncomplicated; Z79.899 Other long term (current) drug therapy
CPT/HCPCS: 87081; J1200; J1630; J2060

== ENCOUNTER 2019-04-25 08:50 | Emergency (ER) | payer MEDICAID, OTHER ==
[~2019-04-25] VITALS: Ht 157.5 cm; Wt 72.7 kg
[2019-04-25] MEDS ORDERED: METF-463 PO (09:11)
[2019-04-25] MEDS ORDERED: LISI-660 PO (09:11)
[2019-04-25] MEDS ORDERED: ZIPR60CA2 PO (09:11)
[2019-04-25] MEDS ORDERED: DIVA-78 PO (09:11)
[2019-04-25] MEDS ORDERED: LIDOCAINE 2%/EPI 1:200,000/PF 20 ML VIAL INJ ONE (10:00)
[2019-04-25] MEDS ORDERED: LISI-661 PO (12:44)
[2019-04-25] MEDS ORDERED: METF-960 PO (12:44)
[2019-04-25] MEDS ORDERED: BACITRACIN 0.9 GM PACKET OINTMENT TP ONE (12:45)
[2019-04-25 15:00] VITALS: BP 109/81
== END 2019-04-25 15:50 | disposition home or self-care (01) ==
LOC: EMS 08:54
DX: S90.851A Superficial foreign body, right foot, initial encounter (principal); E11.9 Type 2 diabetes mellitus without complications; I10 Essential (primary) hypertension; F41.9 Anxiety disorder, unspecified; F31.9 Bipolar disorder, unspecified; F20.9 Schizophrenia, unspecified; F17.210 Nicotine dependence, cigarettes, uncomplicated; F12.90 Cannabis use, unspecified, uncomplicated; F15.90 Other stimulant use, unspecified, uncomplicated; Z79.899 Other long term (current) drug therapy; Z88.0 Allergy status to penicillin; Z91.041 Radiographic dye allergy status; Z91.011 Allergy to milk products; W22.8XXA Striking against or struck by other objects, initial encounter; Y93.89 Activity, other specified; Y92.89 Other specified places as the place of occurrence of the external cause; Y99.8 Other external cause status
CPT/HCPCS: 10060; 28190

== ENCOUNTER 2019-06-06 06:42 | Inpatient (IN) | payer MEDICAID, OTHER ==
[~2019-06-06] VITALS: Ht 160 cm; Wt 91.6 kg
[~2019-06-06 06:42] MED LIST changes: +DIVA-78 PO; -VALP250C48 PO
[2019-06-06 07:46] LABS: BASOPHILS % (AUTO) 0.3 % (0.0-2.0); EOSINOPHILS % (AUTO) 1.5 % (1.0-6.0); HEMATOCRIT 38.3 % (36-46); HEMOGLOBIN 12.5 g/dL (12.0-16.0); LYMPHOCYTES # (AUTO) 1.8 K/uL (1.0-4.8); LYMPHOCYTES % (AUTO) 16.9 % (22.0-44.0); MEAN CORPUSCULAR HEMOGLOBIN 29.5 pg (26.0-34.0); MEAN CORPUSCULAR HGB CONC 32.6 G/dL (31.0-37.0); MEAN CORPUSCULAR VOLUME 91 fL (80-100); MONOCYTES # (AUTO) 0.6 K/uL (0.1-1.0); MONOCYTES % (AUTO) 5.6 % (2.0-9.0); NEUTROPHILS # (AUTO) 8.2 K/uL (1.8-7.7); NEUTROPHILS % (AUTO) 75.7 % (40.0-70.0); PLATELET COUNT (AUTO) 394 K/uL (150-450); RED BLOOD CELL COUNT(AUTO) 4.24 MIL/uL (4.00-5.20); RED CELL DISTRIBUTION WIDTH 14.6 % (11.5-14.5)
[2019-06-06 08:03] LABS: ANION GAP 7 mmol/L (8-16); CALCIUM, TOTAL 9.9 mg/dL (8.8-10.5); CARBON DIOXIDE 30 mmol/L (22-29); CHLORIDE 99 mmol/L (98-107); CREATININE 0.82 mg/dL (0.60-1.30); GLOMERULAR FILTR. RATE CALC > 60 mL/min (>60); GLUCOSE,RANDOM 141 mg/dL (70-110); POTASSIUM 4.7 mmol/L (3.5-5.1); SODIUM SERUM 136 mmol/L (136-145); UREA NITROGEN, BLOOD 20 mg/dL (7-18)
[2019-06-06 08:08] LABS: ALANINE AMINOTRANSFERASE 52 U/L (12-78); ALBUMIN 3.8 g/dL (3.4-5.0); ALKALINE PHOSPHATASE 90 U/L (46-116); BILIRUBIN,TOTAL 0.2 mg/dL (0.1-1.0); TOTAL PROTEIN, SERUM 8.5 g/dL (6.4-8.2)
[2019-06-06 08:10] LABS: VALPROIC ACID < 3 mcg/mL (50-100)
[2019-06-06 08:21] LABS: ASPARTATE AMINOTRANSFERASE 36 U/L (15-37)
[2019-06-06] MEDS ORDERED: HALOPERIDOL 5 MG TABLET PO ONE (08:30)
[2019-06-06] MEDS ORDERED: LORazepam 1 MG TABLET PO ONE (08:30)
[2019-06-06] MEDS ORDERED: HALOPERIDOL 5 MG TABLET PO PRN (09:15)
[2019-06-06] MEDS ORDERED: NICOTINE 14 MG/24 HOUR PATCH TD PRN (12:00)
[2019-06-06] MEDS ORDERED: DOCUSATE SODIUM 100 MG CAPSULE PO PRN (12:00)
[2019-06-06] MEDS ORDERED: MAG HYDROX/AL HYDROX/SIMETH ES 30 ML SUSPENSION UDCUP PO PRN (12:00)
[2019-06-06] MEDS ORDERED: PETROLATUM,WHITE 28 GM JELLY TP PRN (12:00)
[2019-06-06] MEDS ORDERED: ONDANSETRON HCL 4 MG TABLET PO PRN (12:00)
[2019-06-06] MEDS ORDERED: CloNIDine HCL 0.1 MG TABLET PO PRN (12:00)
[2019-06-06] MEDS ORDERED: LOPERAMIDE HCL 2 MG CAPSULE PO PRN (12:00)
[2019-06-06] MEDS ORDERED: ALBUTEROL SULFATE HFA 90 MCG/PUFF 8 GM INHALER IH PRN (12:00)
[2019-06-06] MEDS ORDERED: GuaiFENesin/D-METHORPHAN [SUGAR-FREE] 200-20MG/10 ML SYRUP UDCUP PO PRN (12:00)
[2019-06-06] MEDS: MetFORMIN HCL 500 MG TABLET PO SCH (17:01)
[2019-06-06] MEDS: DIVALPROEX SODIUM 500 MG DR TABLET PO SCH (17:01)
[2019-06-06] MEDS: ZIPRASIDONE HCL 60 MG CAPSULE PO SCH (17:01)
[2019-06-06 17:43] VITALS: BP 114/77
[2019-06-06 18:08] LABS: GLUCOMETER DEV NAME(LOC) BV3N.; GLUCOSE,POINT OF CARE 153 MG/DL (70-110)
[2019-06-07] MEDS ORDERED: -PHARMACY VACCINE NOTE- MISC ONE (01:00)
[2019-06-07 03:24] VITALS: BP 104/77
[2019-06-07 07:11] LABS: GLUCOMETER DEV NAME(LOC) BV3N.; GLUCOSE,POINT OF CARE 161 MG/DL (70-110)
[2019-06-07 08:23] VITALS: BP 136/74
[2019-06-07 08:58] LABS: CHOL/HDL RATIO 3.8 (3.9-5.7)
[2019-06-07] MEDS: LISINOPRIL 5 MG TABLET PO SCH (09:57)
[2019-06-07] MEDS: DIVALPROEX SODIUM 500 MG DR TABLET PO SCH ×2 (09:58→16:22)
[2019-06-07 11:37] LABS: GLUCOMETER DEV NAME(LOC) BV3N.; GLUCOSE,POINT OF CARE 144 MG/DL (70-110)
[2019-06-07 16:00] VITALS: BP 127/77
[2019-06-07] MEDS: MetFORMIN HCL 500 MG TABLET PO SCH ×3 (16:21→17:07)
[2019-06-07] MEDS: ZIPRASIDONE HCL 60 MG CAPSULE PO SCH ×3 (16:21→17:07)
[2019-06-07] MEDS: IBUPROFEN 400 MG TABLET PO PRN (16:22)
[2019-06-07 16:28] VITALS: BP 127/77
[2019-06-07 16:30] LABS: GLUCOMETER DEV NAME(LOC) BV3N.; GLUCOSE,POINT OF CARE 169 MG/DL (70-110)
[2019-06-07 20:22] LABS: GLUCOMETER DEV NAME(LOC) BV3N.; GLUCOSE,POINT OF CARE 125 MG/DL (70-110)
[2019-06-08 05:07] VITALS: BP 111/60
[2019-06-08] MEDS: ZIPRASIDONE HCL 60 MG CAPSULE PO SCH ×2 (06:37→16:19)
[2019-06-08] MEDS: MetFORMIN HCL 500 MG TABLET PO SCH ×2 (06:37→16:19)
[2019-06-08 07:00] LABS: GLUCOMETER DEV NAME(LOC) BV3N.; GLUCOSE,POINT OF CARE 138 MG/DL (70-110)
[2019-06-08 08:23] VITALS: BP 114/65
[2019-06-08] MEDS: LISINOPRIL 5 MG TABLET PO SCH (09:25)
[2019-06-08] MEDS: DIVALPROEX SODIUM 500 MG DR TABLET PO SCH ×2 (09:25→16:20)
[2019-06-08 16:25] VITALS: BP 125/67
[2019-06-08 16:25] LABS: GLUCOMETER DEV NAME(LOC) BV3N.; GLUCOSE,POINT OF CARE 146 MG/DL (70-110)
[2019-06-08 17:33] VITALS: BP 120/61
[2019-06-08] MEDS: ACETAMINOPHEN 325 MG TABLET PO PRN (17:33)
[2019-06-08] MEDS: IBUPROFEN 400 MG TABLET PO PRN (20:17)
[2019-06-08 20:19] VITALS: BP 127/102
[2019-06-08 20:22] LABS: GLUCOMETER DEV NAME(LOC) BV3N.; GLUCOSE,POINT OF CARE 137 MG/DL (70-110)
[2019-06-08] MEDS: MAGNESIUM HYDROXIDE SUSPENSION 30 ML UDCUP PO PRN (20:27)
[2019-06-09] MEDS: ZIPRASIDONE HCL 60 MG CAPSULE PO SCH ×2 (06:01→16:32)
[2019-06-09] MEDS: MetFORMIN HCL 500 MG TABLET PO SCH ×2 (06:02→16:32)
[2019-06-09 06:08] LABS: GLUCOMETER DEV NAME(LOC) BV3N.; GLUCOSE,POINT OF CARE 115 MG/DL (70-110)
[2019-06-09 06:13] VITALS: BP 103/62
[2019-06-09 08:17] VITALS: BP 118/73
[2019-06-09] MEDS: LISINOPRIL 5 MG TABLET PO SCH (08:45)
[2019-06-09] MEDS: DIVALPROEX SODIUM 500 MG DR TABLET PO SCH ×2 (08:45→16:32)
[2019-06-09 16:50] LABS: GLUCOMETER DEV NAME(LOC) BV3N.; GLUCOSE,POINT OF CARE 181 MG/DL (70-110)
[2019-06-09 17:27] VITALS: BP 113/62
[2019-06-09 20:24] LABS: GLUCOMETER DEV NAME(LOC) BV3N.; GLUCOSE,POINT OF CARE 147 MG/DL (70-110)
[2019-06-09] MEDS: IBUPROFEN 400 MG TABLET PO PRN (20:51)
[2019-06-09] MEDS: MAGNESIUM HYDROXIDE SUSPENSION 30 ML UDCUP PO PRN (22:11)
[2019-06-09] MEDS: ACETAMINOPHEN 325 MG TABLET PO PRN (22:54)
[2019-06-10 01:42] VITALS: BP 117/78
[2019-06-10] MEDS: LORazepam 2 MG TABLET PO PRN (06:17)
[2019-06-10] MEDS: ZIPRASIDONE HCL 60 MG CAPSULE PO SCH ×2 (07:00→16:49)
[2019-06-10] MEDS: MetFORMIN HCL 500 MG TABLET PO SCH ×2 (07:00→16:49)
[2019-06-10] MEDS: DIVALPROEX SODIUM 500 MG DR TABLET PO SCH ×3 (08:21→16:48)
[2019-06-10] MEDS: LISINOPRIL 5 MG TABLET PO SCH ×2 (08:21→09:00)
[2019-06-10 16:58] LABS: GLUCOMETER DEV NAME(LOC) BV3N.; GLUCOSE,POINT OF CARE 221 MG/DL (70-110)
[2019-06-10] MEDS: SULFAMETHOX/TRIMETH DS 800-160 MG/TABLET PO SCH (17:33)
[2019-06-10] MEDS: CEPHALEXIN MONOHYDRATE 500 MG CAPSULE PO SCH (17:33)
[2019-06-10] MEDS: IBUPROFEN 400 MG TABLET PO PRN (17:34)
[2019-06-10 17:57] VITALS: BP 110/87
[2019-06-10] MEDS ORDERED: LORazepam 2 MG/ML VIAL ONE (19:17)
[2019-06-10] MEDS ORDERED: HALOPERIDOL LACTATE 5 MG/ML VIAL ONE (19:17)
[2019-06-10] MEDS ORDERED: DiphenhydrAMINE HCL 50 MG/ML VIAL ONE (19:17)
[2019-06-10] MEDS ORDERED: LORazepam 2 MG/ML VIAL IM ONE (19:30)
[2019-06-10] MEDS ORDERED: DiphenhydrAMINE HCL 50 MG/ML VIAL IM ONE (19:30)
[2019-06-10] MEDS ORDERED: HALOPERIDOL LACTATE 5 MG/ML VIAL IM ONE (19:30)
[2019-06-11] MEDS: ZIPRASIDONE HCL 60 MG CAPSULE PO SCH ×2 (06:25→16:04)
[2019-06-11] MEDS: MetFORMIN HCL 500 MG TABLET PO SCH ×2 (06:26→16:04)
[2019-06-11 08:13] LABS: APPEARANCE,URINE CLEAR (CLEAR); BILIRUBIN,URINE NEGATIVE (NEGATIVE); GLUCOSE, URINE (UA) NEGATIVE (NEGATIVE); KETONES,URINE NEGATIVE (NEGATIVE); LEUKOCYTE ESTERASE ,URINE SMALL (NEGATIVE); NITRATE,URINE NEGATIVE (NEGATIVE); OCCULT BLOOD,URINE NEGATIVE (NEGATIVE); PROTEIN,URINE NEGATIVE (NEGATIVE); UROBILINOGEN,URINE 0.2 mg/dL (<=1.0)
[2019-06-11 08:18] LABS: AMPHET/METH SCREEN,URINE NEGATIVE (NEGATIVE); BARBITURATE SCREEN, URINE NEGATIVE (NEGATIVE); BENZODIAZEPINES SCREEN,URINE NEGATIVE (NEGATIVE); CANNABINOID SCREEN,URINE NEGATIVE (NEGATIVE); COCAINE SCREEN,URINE NEGATIVE (NEGATIVE); METHADONE SCREEN, URINE NEGATIVE (NEGATIVE); OPIATE SCREEN,URINE NEGATIVE (NEGATIVE)
[2019-06-11 08:19] LABS: PHENCYCLIDINE SCREEN,URINE NEGATIVE (NEGATIVE)
[2019-06-11 08:29] VITALS: BP 119/67
[2019-06-11] MEDS: CEPHALEXIN MONOHYDRATE 500 MG CAPSULE PO SCH ×3 (08:32→16:04)
[2019-06-11] MEDS: LISINOPRIL 5 MG TABLET PO SCH (08:33)
[2019-06-11] MEDS: DIVALPROEX SODIUM 500 MG DR TABLET PO SCH ×2 (08:33→16:04)
[2019-06-11] MEDS: SULFAMETHOX/TRIMETH DS 800-160 MG/TABLET PO SCH ×2 (08:33→16:04)
[2019-06-11] MEDS: MULTIVITAMINS WITH MINERALS, THERAPEUTIC TABLET PO SCH (08:33)
[2019-06-11 10:57] LABS: BACTERIA,URINE Few /HPF (None Seen); RBC,URINE None Seen /HPF (0-2); SQUAMOUS EPITHELIAL CELL,UR Few /LPF (None Seen)
[2019-06-11 14:19] LABS: GLUCOMETER DEV NAME(LOC) BV3N.; GLUCOSE,POINT OF CARE 138 MG/DL (70-110)
[2019-06-11 16:17] VITALS: BP 116/72
[2019-06-11 16:21] LABS: GLUCOMETER DEV NAME(LOC) BV3N.; GLUCOSE,POINT OF CARE 169 MG/DL (70-110)
[2019-06-11 20:51] LABS: GLUCOMETER DEV NAME(LOC) BV3N.; GLUCOSE,POINT OF CARE 105 MG/DL (70-110)
[2019-06-12 01:09] VITALS: BP 123/88
[2019-06-12] MEDS: LORazepam 2 MG TABLET PO PRN ×3 (01:11→18:20)
[2019-06-12] MEDS: ZOLPIDEM TARTRATE 10 MG TABLET PO PRN ×2 (01:12→20:09)
[2019-06-12] MEDS: MetFORMIN HCL 500 MG TABLET PO SCH ×2 (06:58→16:47)
[2019-06-12] MEDS: ZIPRASIDONE HCL 60 MG CAPSULE PO SCH ×2 (06:58→16:47)
[2019-06-12] MEDS: CEPHALEXIN MONOHYDRATE 500 MG CAPSULE PO SCH ×3 (08:39→16:47)
[2019-06-12] MEDS: LISINOPRIL 5 MG TABLET PO SCH (08:40)
[2019-06-12] MEDS: MULTIVITAMINS WITH MINERALS, THERAPEUTIC TABLET PO SCH (08:40)
[2019-06-12] MEDS: SULFAMETHOX/TRIMETH DS 800-160 MG/TABLET PO SCH ×2 (08:40→17:04)
[2019-06-12] MEDS: DIVALPROEX SODIUM 500 MG DR TABLET PO SCH ×2 (08:40→16:47)
[2019-06-12 11:02] LABS: GLUCOMETER DEV NAME(LOC) BV3N.; GLUCOSE,POINT OF CARE 180 MG/DL (70-110)
[2019-06-12 16:00] VITALS: BP 122/69
[2019-06-12 17:07] LABS: GLUCOMETER DEV NAME(LOC) BV3N.; GLUCOSE,POINT OF CARE 177 MG/DL (70-110)
[2019-06-12 20:20] LABS: GLUCOMETER DEV NAME(LOC) BV3N.; GLUCOSE,POINT OF CARE 129 MG/DL (70-110)
[2019-06-13] MEDS: ZIPRASIDONE HCL 60 MG CAPSULE PO SCH ×2 (06:58→17:03)
[2019-06-13] MEDS: MetFORMIN HCL 500 MG TABLET PO SCH ×2 (06:58→17:04)
[2019-06-13 07:14] LABS: GLUCOMETER DEV NAME(LOC) BV3N.; GLUCOSE,POINT OF CARE 110 MG/DL (70-110)
[2019-06-13 08:28] VITALS: BP 113/64
[2019-06-13] MEDS: MULTIVITAMINS WITH MINERALS, THERAPEUTIC TABLET PO SCH (09:17)
[2019-06-13] MEDS: CEPHALEXIN MONOHYDRATE 500 MG CAPSULE PO SCH ×3 (09:17→17:04)
[2019-06-13] MEDS: LISINOPRIL 5 MG TABLET PO SCH (09:17)
[2019-06-13] MEDS: DIVALPROEX SODIUM 500 MG DR TABLET PO SCH ×2 (09:17→17:04)
[2019-06-13] MEDS: SULFAMETHOX/TRIMETH DS 800-160 MG/TABLET PO SCH ×2 (09:17→17:03)
[2019-06-13] MEDS: LORazepam 2 MG TABLET PO PRN (09:23)
[2019-06-13 16:18] VITALS: BP 110/70
[2019-06-13 18:08] LABS: GLUCOMETER DEV NAME(LOC) BV3N.; GLUCOSE,POINT OF CARE 154 MG/DL (70-110)
[2019-06-13] MEDS: ZOLPIDEM TARTRATE 10 MG TABLET PO PRN (20:48)
[2019-06-14] MEDS: MetFORMIN HCL 500 MG TABLET PO SCH ×2 (06:53→17:39)
[2019-06-14] MEDS: ZIPRASIDONE HCL 60 MG CAPSULE PO SCH ×2 (06:53→17:39)
[2019-06-14 08:36] VITALS: BP 100/58
[2019-06-14] MEDS: MULTIVITAMINS WITH MINERALS, THERAPEUTIC TABLET PO SCH (09:28)
[2019-06-14] MEDS: DIVALPROEX SODIUM 500 MG DR TABLET PO SCH ×2 (09:28→17:39)
[2019-06-14] MEDS: LISINOPRIL 5 MG TABLET PO SCH (09:28)
[2019-06-14] MEDS: SULFAMETHOX/TRIMETH DS 800-160 MG/TABLET PO SCH ×2 (09:28→17:39)
[2019-06-14] MEDS: CEPHALEXIN MONOHYDRATE 500 MG CAPSULE PO SCH ×3 (09:28→17:39)
[2019-06-14 16:00] VITALS: BP 112/72
[2019-06-14 16:56] LABS: GLUCOMETER DEV NAME(LOC) BV3N.; GLUCOSE,POINT OF CARE 147 MG/DL (70-110)
[2019-06-14] MEDS ORDERED: DiphenhydrAMINE HCL 50 MG/ML VIAL IM ONE (19:15)
[2019-06-14] MEDS ORDERED: LORazepam 2 MG/ML VIAL IM ONE (19:15)
[2019-06-14] MEDS ORDERED: HALOPERIDOL LACTATE 5 MG/ML VIAL IM ONE (19:15)
[2019-06-14 20:17] LABS: GLUCOMETER DEV NAME(LOC) BV3N.; GLUCOSE,POINT OF CARE 116 MG/DL (70-110)
[2019-06-15 06:21] LABS: GLUCOMETER DEV NAME(LOC) BV3N.; GLUCOSE,POINT OF CARE 95 MG/DL (70-110)
[2019-06-15 06:29] VITALS: BP 104/68
[2019-06-15] MEDS: ZIPRASIDONE HCL 60 MG CAPSULE PO SCH ×2 (06:55→17:17)
[2019-06-15] MEDS: MetFORMIN HCL 500 MG TABLET PO SCH ×2 (06:55→17:17)
[2019-06-15 08:26] VITALS: BP 111/60
[2019-06-15] MEDS: MULTIVITAMINS WITH MINERALS, THERAPEUTIC TABLET PO SCH (09:04)
[2019-06-15] MEDS: DIVALPROEX SODIUM 500 MG DR TABLET PO SCH ×2 (09:04→17:17)
[2019-06-15] MEDS: CEPHALEXIN MONOHYDRATE 500 MG CAPSULE PO SCH ×2 (09:04→12:53)
[2019-06-15] MEDS: SULFAMETHOX/TRIMETH DS 800-160 MG/TABLET PO SCH (09:05)
[2019-06-15] MEDS: LISINOPRIL 5 MG TABLET PO SCH (09:05)
[2019-06-15] MEDS: LORazepam 2 MG TABLET PO PRN ×2 (09:09→17:17)
[2019-06-15 12:23] LABS: GLUCOMETER DEV NAME(LOC) BV3N.; GLUCOSE,POINT OF CARE 123 MG/DL (70-110)
[2019-06-15 17:00] LABS: GLUCOMETER DEV NAME(LOC) BV3N.; GLUCOSE,POINT OF CARE 130 MG/DL (70-110)
[2019-06-15 17:49] VITALS: BP 94/52
[2019-06-15 21:01] LABS: GLUCOMETER DEV NAME(LOC) BV3N.; GLUCOSE,POINT OF CARE 88 MG/DL (70-110)
[2019-06-16 04:36] VITALS: BP 105/64
[2019-06-16] MEDS: MetFORMIN HCL 500 MG TABLET PO SCH ×2 (06:58→17:31)
[2019-06-16] MEDS: ZIPRASIDONE HCL 60 MG CAPSULE PO SCH ×2 (06:58→17:31)
[2019-06-16] MEDS: LISINOPRIL 5 MG TABLET PO SCH (09:00)
[2019-06-16] MEDS: DIVALPROEX SODIUM 500 MG DR TABLET PO SCH ×2 (09:19→17:31)
[2019-06-16] MEDS: MULTIVITAMINS WITH MINERALS, THERAPEUTIC TABLET PO SCH (09:19)
[2019-06-16 12:07] LABS: GLUCOMETER DEV NAME(LOC) BV3N.; GLUCOSE,POINT OF CARE 138 MG/DL (70-110)
[2019-06-16 16:37] VITALS: BP 146/61
[2019-06-16 17:47] LABS: GLUCOMETER DEV NAME(LOC) BV3N.; GLUCOSE,POINT OF CARE 181 MG/DL (70-110)
== END 2019-06-16 17:55 | disposition home or self-care (01) | DRG 750 ==
LOC: EMS 06:45 → B3A 10:27
PROVIDERS: ADMIT Psychiatry & Neurology Psychiatry; ATTEND Psychiatry & Neurology Psychiatry
DX: F25.9 Schizoaffective disorder, unspecified (principal); R45.851 Suicidal ideations; E11.9 Type 2 diabetes mellitus without complications; E78.5 Hyperlipidemia, unspecified; F10.10 Alcohol abuse, uncomplicated; B37.9 Candidiasis, unspecified; F17.210 Nicotine dependence, cigarettes, uncomplicated; F12.90 Cannabis use, unspecified, uncomplicated; I10 Essential (primary) hypertension; K21.9 Gastro-esophageal reflux disease without esophagitis; J44.9 Chronic obstructive pulmonary disease, unspecified; F31.9 Bipolar disorder, unspecified; F41.9 Anxiety disorder, unspecified; N80.9 Endometriosis, unspecified; F19.10 Other psychoactive substance abuse, uncomplicated; Y90.9 Presence of alcohol in blood, level not specified; Z59.0 Homelessness; Z88.0 Allergy status to penicillin; Z88.8 Allergy status to other drugs, medicaments and biological substances; Z91.19 Patient's noncompliance with other medical treatment and regimen
CPT/HCPCS: 80307; 87081; G0480; J1200; J1630; J2060

== ENCOUNTER 2019-06-18 17:31 | Inpatient (IN) | payer MEDICAID, OTHER ==
[~2019-06-18] VITALS: Ht 160 cm; Wt 93.5 kg
[2019-06-18] MEDS ORDERED: ATOR10TA84 PO (17:33)
[2019-06-18 18:15] LABS: BASOPHILS % (AUTO) 0.6 % (0.0-2.0); EOSINOPHILS % (AUTO) 0.7 % (1.0-6.0); HEMATOCRIT 38.6 % (36-46); HEMOGLOBIN 12.7 g/dL (12.0-16.0); LYMPHOCYTES # (AUTO) 3.7 K/uL (1.0-4.8); LYMPHOCYTES % (AUTO) 27.4 % (22.0-44.0); MEAN CORPUSCULAR HEMOGLOBIN 29.4 pg (26.0-34.0); MEAN CORPUSCULAR HGB CONC 32.8 G/dL (31.0-37.0); MEAN CORPUSCULAR VOLUME 90 fL (80-100); MONOCYTES # (AUTO) 1.3 K/uL (0.1-1.0); MONOCYTES % (AUTO) 9.2 % (2.0-9.0); NEUTROPHILS # (AUTO) 8.5 K/uL (1.8-7.7); NEUTROPHILS % (AUTO) 62.1 % (40.0-70.0); PLATELET COUNT (AUTO) 385 K/uL (150-450); RED BLOOD CELL COUNT(AUTO) 4.31 MIL/uL (4.00-5.20); RED CELL DISTRIBUTION WIDTH 14.1 % (11.5-14.5)
[2019-06-18 18:23] LABS: AMPHET/METH SCREEN,URINE POSITIVE (NEGATIVE); BARBITURATE SCREEN, URINE NEGATIVE (NEGATIVE); BENZODIAZEPINES SCREEN,URINE NEGATIVE (NEGATIVE); CANNABINOID SCREEN,URINE NEGATIVE (NEGATIVE); COCAINE SCREEN,URINE NEGATIVE (NEGATIVE); METHADONE SCREEN, URINE NEGATIVE (NEGATIVE); OPIATE SCREEN,URINE NEGATIVE (NEGATIVE); PHENCYCLIDINE SCREEN,URINE NEGATIVE (NEGATIVE)
[2019-06-18 18:24] LABS: ANION GAP 12 mmol/L (8-16); CALCIUM, TOTAL 9.3 mg/dL (8.8-10.5); CARBON DIOXIDE 26 mmol/L (22-29); CHLORIDE 100 mmol/L (98-107); CREATININE 0.93 mg/dL (0.60-1.30); GLOMERULAR FILTR. RATE CALC > 60 mL/min (>60); GLUCOSE,RANDOM 109 mg/dL (70-110); POTASSIUM 4.1 mmol/L (3.5-5.1); SODIUM SERUM 138 mmol/L (136-145); UREA NITROGEN, BLOOD 23 mg/dL (7-18)
[2019-06-18 18:35] LABS: ALANINE AMINOTRANSFERASE 37 U/L (12-78); ALBUMIN 3.9 g/dL (3.4-5.0); ALKALINE PHOSPHATASE 83 U/L (46-116); ASPARTATE AMINOTRANSFERASE 46 U/L (15-37); BILIRUBIN,TOTAL 0.6 mg/dL (0.1-1.0); HCG,QUANTITATIVE < 1 mIU/mL (0-6); TOTAL PROTEIN, SERUM 7.9 g/dL (6.4-8.2)
[2019-06-18] MEDS ORDERED: ZOLPIDEM TARTRATE 10 MG TABLET PO PRN (18:45)
[2019-06-18 20:11] LABS: VALPROIC ACID 11 mcg/mL (50-100)
[2019-06-18 21:05] VITALS: BP 144/77
[2019-06-18] MEDS ORDERED: -PHARMACY VACCINE NOTE- MISC ONE (21:30)
[2019-06-18] MEDS: LORazepam 2 MG TABLET PO PRN (21:34)
[2019-06-18] MEDS: HALOPERIDOL 5 MG TABLET PO PRN (21:34)
[2019-06-18] MEDS ORDERED: MAG HYDROX/AL HYDROX/SIMETH ES 30 ML SUSPENSION UDCUP PO PRN (22:00)
[2019-06-18] MEDS ORDERED: LOPERAMIDE HCL 2 MG CAPSULE PO PRN (22:00)
[2019-06-18] MEDS ORDERED: PETROLATUM,WHITE 28 GM JELLY TP PRN (22:00)
[2019-06-18] MEDS ORDERED: CloNIDine HCL 0.1 MG TABLET PO PRN (22:00)
[2019-06-18] MEDS ORDERED: IBUPROFEN 400 MG TABLET PO PRN (22:00)
[2019-06-18] MEDS ORDERED: ONDANSETRON HCL 4 MG TABLET PO PRN (22:00)
[2019-06-18] MEDS ORDERED: ACETAMINOPHEN 325 MG TABLET PO PRN (22:00)
[2019-06-18] MEDS ORDERED: DEXTROSE 50%-WATER 25 GM/50 ML SYRINGE IVP PRN (22:00)
[2019-06-18] MEDS ORDERED: DOCUSATE SODIUM 100 MG CAPSULE PO PRN (22:00)
[2019-06-18] MEDS ORDERED: MAGNESIUM HYDROXIDE SUSPENSION 30 ML UDCUP PO PRN (22:00)
[2019-06-18] MEDS ORDERED: NICOTINE 14 MG/24 HOUR PATCH TD PRN (22:00)
[2019-06-18] MEDS ORDERED: GuaiFENesin/D-METHORPHAN [SUGAR-FREE] 200-20MG/10 ML SYRUP UDCUP PO PRN (22:00)
[2019-06-18] MEDS ORDERED: ALBUTEROL SULFATE HFA 90 MCG/PUFF 8 GM INHALER IH PRN (22:00)
[2019-06-19 00:57] VITALS: BP 119/78
[2019-06-19] MEDS: LORazepam 2 MG TABLET PO PRN (03:02)
[2019-06-19 05:42] LABS: GLUCOMETER DEV NAME(LOC) 3E.I 2; GLUCOSE,POINT OF CARE 137 MG/DL (70-110)
[2019-06-19 07:14] LABS: BASOPHILS % (AUTO) 0.2 % (0.0-2.0); HEMATOCRIT 36.8 % (36-46); LYMPHOCYTES # (AUTO) 3.1 K/uL (1.0-4.8); LYMPHOCYTES % (AUTO) 28.4 % (22.0-44.0); MEAN CORPUSCULAR HEMOGLOBIN 29.3 pg (26.0-34.0); MEAN CORPUSCULAR HGB CONC 32.8 G/dL (31.0-37.0); MEAN CORPUSCULAR VOLUME 90 fL (80-100); MONOCYTES # (AUTO) 1.2 K/uL (0.1-1.0); MONOCYTES % (AUTO) 10.7 % (2.0-9.0); NEUTROPHILS # (AUTO) 6.4 K/uL (1.8-7.7); NEUTROPHILS % (AUTO) 58.7 % (40.0-70.0); PLATELET COUNT (AUTO) 368 K/uL (150-450); RED BLOOD CELL COUNT(AUTO) 4.11 MIL/uL (4.00-5.20); RED CELL DISTRIBUTION WIDTH 14.4 % (11.5-14.5)
[2019-06-19] MEDS ORDERED: MetFORMIN HCL 500 MG TABLET PO SCH (07:30)
[2019-06-19 07:38] LABS: HEMOGLOBIN A1C 7.4 % (3.8-5.6)
[2019-06-19 07:46] LABS: ALANINE AMINOTRANSFERASE 38 U/L (12-78); ALBUMIN 3.4 g/dL (3.4-5.0); ALKALINE PHOSPHATASE 105 U/L (46-116); ANION GAP 6 mmol/L (8-16); ASPARTATE AMINOTRANSFERASE 42 U/L (15-37); BILIRUBIN,TOTAL 0.3 mg/dL (0.1-1.0); CARBON DIOXIDE 30 mmol/L (22-29); CHLORIDE 99 mmol/L (98-107); CHOL/HDL RATIO 3.2 (3.9-5.7); CHOLESTEROL 124 mg/dL (131-200); CREATININE 0.89 mg/dL (0.60-1.30); GLOMERULAR FILTR. RATE CALC > 60 mL/min (>60); GLUCOSE,RANDOM 118 mg/dL (70-110); HDL CHOLESTEROL 39 mg/dL (40-60); LDL CHOL (CALC.) 68 mg/dL (0-130); POTASSIUM 4.2 mmol/L (3.5-5.1); SODIUM SERUM 135 mmol/L (136-145); THYROID STIMULATING HORMONE 4.03 uIU/mL (0.36-3.74); TOTAL PROTEIN, SERUM 7.2 g/dL (6.4-8.2); TRIGLYCERIDES 84 mg/dL (15-150); UREA NITROGEN, BLOOD 23 mg/dL (7-18)
[2019-06-19] MEDS ORDERED: LISINOPRIL 5 MG TABLET PO SCH (09:00)
[2019-06-19] MEDS: DIVALPROEX SODIUM 500 MG DR TABLET PO SCH ×2 (09:32→16:48)
[2019-06-19] MEDS: ZIPRASIDONE HCL 60 MG CAPSULE PO SCH ×2 (09:33→16:48)
[2019-06-19] MEDS: INSULIN LISPRO 100 UNITS/ML SQ PRN ×2 (11:47→17:17)
[2019-06-19 13:10] VITALS: BP 115/73
[2019-06-19] MEDS ORDERED: PETROLATUM,WHITE 28 GM JELLY TP PRN (16:15)
[2019-06-19] MEDS ORDERED: GuaiFENesin/D-METHORPHAN [SUGAR-FREE] 200-20MG/10 ML SYRUP UDCUP PO PRN (16:15)
[2019-06-19] MEDS ORDERED: ACETAMINOPHEN 325 MG TABLET PO PRN (16:15)
[2019-06-19] MEDS ORDERED: CloNIDine HCL 0.1 MG TABLET PO PRN (16:15)
[2019-06-19] MEDS ORDERED: LOPERAMIDE HCL 2 MG CAPSULE PO PRN (16:15)
[2019-06-19] MEDS ORDERED: MAGNESIUM HYDROXIDE SUSPENSION 30 ML UDCUP PO PRN (16:15)
[2019-06-19] MEDS ORDERED: NICOTINE 14 MG/24 HOUR PATCH TD PRN (16:15)
[2019-06-19] MEDS ORDERED: ALBUTEROL SULFATE HFA 90 MCG/PUFF 8 GM INHALER IH PRN (16:15)
[2019-06-19] MEDS ORDERED: MAG HYDROX/AL HYDROX/SIMETH ES 30 ML SUSPENSION UDCUP PO PRN (16:15)
[2019-06-19] MEDS ORDERED: ONDANSETRON HCL 4 MG TABLET PO PRN (16:15)
[2019-06-19] MEDS: MetFORMIN HCL 500 MG TABLET PO SCH (16:48)
[2019-06-19 16:58] VITALS: BP 118/66
[2019-06-19 17:11] LABS: GLUCOMETER DEV NAME(LOC) 3E.I 2; GLUCOSE,POINT OF CARE 142 MG/DL (70-110)
[2019-06-19 17:11] LABS: GLUCOMETER DEV NAME(LOC) 3E.I 2; GLUCOSE,POINT OF CARE 162 MG/DL (70-110)
[2019-06-19] MEDS: TraZODone HCL 50 MG TABLET PO SCH (21:00)
[2019-06-20] MEDS: IBUPROFEN 400 MG TABLET PO PRN (05:49)
[2019-06-20 06:53] LABS: GLUCOMETER DEV NAME(LOC) 3E.C; GLUCOSE,POINT OF CARE 126 MG/DL (70-110)
[2019-06-20] MEDS: MetFORMIN HCL 500 MG TABLET PO SCH ×2 (07:01→17:05)
[2019-06-20] MEDS: INSULIN LISPRO 100 UNITS/ML SQ PRN ×2 (07:03→07:09)
[2019-06-20] MEDS: ATORVASTATIN CALCIUM 10 MG TABLET PO SCH (08:14)
[2019-06-20] MEDS: ZIPRASIDONE HCL 60 MG CAPSULE PO SCH ×2 (08:15→17:05)
[2019-06-20] MEDS: DIVALPROEX SODIUM 500 MG DR TABLET PO SCH ×2 (08:17→17:06)
[2019-06-20] MEDS: LISINOPRIL 5 MG TABLET PO SCH (08:17)
[2019-06-20] MEDS: DOCUSATE SODIUM 100 MG CAPSULE PO PRN ×2 (08:42→18:16)
[2019-06-20 09:20] VITALS: BP 107/67
[2019-06-20 11:08] LABS: GLUCOMETER DEV NAME(LOC) 3E.C; GLUCOSE,POINT OF CARE 101 MG/DL (70-110)
[2019-06-20 17:11] LABS: GLUCOMETER DEV NAME(LOC) 3E.C; GLUCOSE,POINT OF CARE 120 MG/DL (70-110)
[2019-06-20 18:07] VITALS: BP 109/55
[2019-06-20] MEDS: TraZODone HCL 50 MG TABLET PO SCH (21:10)
[2019-06-20 21:30] LABS: GLUCOMETER DEV NAME(LOC) 3E.C; GLUCOSE,POINT OF CARE 115 MG/DL (70-110)
[2019-06-21] MEDS: IBUPROFEN 400 MG TABLET PO PRN ×2 (01:12→18:37)
[2019-06-21] MEDS: LORazepam 2 MG TABLET PO PRN ×3 (01:12→18:37)
[2019-06-21 06:49] LABS: GLUCOMETER DEV NAME(LOC) 3E.C; GLUCOSE,POINT OF CARE 104 MG/DL (70-110)
[2019-06-21] MEDS: MetFORMIN HCL 500 MG TABLET PO SCH ×2 (07:03→17:17)
[2019-06-21] MEDS: INSULIN LISPRO 100 UNITS/ML SQ PRN (07:04)
[2019-06-21] MEDS: ZIPRASIDONE HCL 60 MG CAPSULE PO SCH ×2 (09:09→16:36)
[2019-06-21] MEDS: LISINOPRIL 5 MG TABLET PO SCH (09:09)
[2019-06-21] MEDS: DIVALPROEX SODIUM 500 MG DR TABLET PO SCH ×2 (09:09→16:36)
[2019-06-21] MEDS: ATORVASTATIN CALCIUM 10 MG TABLET PO SCH (09:10)
[2019-06-21 11:51] LABS: GLUCOMETER DEV NAME(LOC) 3E.C; GLUCOSE,POINT OF CARE 109 MG/DL (70-110)
[2019-06-21 16:55] LABS: GLUCOMETER DEV NAME(LOC) 3E.C; GLUCOSE,POINT OF CARE 107 MG/DL (70-110)
[2019-06-21] MEDS: TraZODone HCL 50 MG TABLET PO SCH (20:32)
[2019-06-21 21:07] LABS: GLUCOMETER DEV NAME(LOC) 3E.C; GLUCOSE,POINT OF CARE 111 MG/DL (70-110)
[2019-06-22] MEDS: IBUPROFEN 400 MG TABLET PO PRN (06:34)
[2019-06-22] MEDS: MetFORMIN HCL 500 MG TABLET PO SCH ×2 (06:34→17:17)
[2019-06-22] MEDS: ATORVASTATIN CALCIUM 10 MG TABLET PO SCH (09:23)
[2019-06-22] MEDS: LISINOPRIL 5 MG TABLET PO SCH (09:25)
[2019-06-22] MEDS: DIVALPROEX SODIUM 500 MG DR TABLET PO SCH ×2 (09:25→17:06)
[2019-06-22] MEDS: ZIPRASIDONE HCL 60 MG CAPSULE PO SCH ×2 (09:25→17:06)
[2019-06-22] MEDS: LORazepam 2 MG TABLET PO PRN (09:25)
[2019-06-22 11:18] LABS: GLUCOMETER DEV NAME(LOC) 3E.C; GLUCOSE,POINT OF CARE 123 MG/DL (70-110)
[2019-06-22 16:00] VITALS: BP 107/68
[2019-06-22 17:19] LABS: GLUCOMETER DEV NAME(LOC) 3E.C; GLUCOSE,POINT OF CARE 104 MG/DL (70-110)
[2019-06-22] MEDS: TraZODone HCL 50 MG TABLET PO SCH (20:43)
[2019-06-23] MEDS: IBUPROFEN 400 MG TABLET PO PRN ×2 (04:00→16:35)
[2019-06-23] MEDS: MetFORMIN HCL 500 MG TABLET PO SCH ×2 (06:33→16:35)
[2019-06-23] MEDS: DIVALPROEX SODIUM 500 MG DR TABLET PO SCH ×2 (07:57→16:35)
[2019-06-23] MEDS: ZIPRASIDONE HCL 60 MG CAPSULE PO SCH ×2 (07:58→16:35)
[2019-06-23] MEDS: LISINOPRIL 5 MG TABLET PO SCH (07:58)
[2019-06-23] MEDS: ATORVASTATIN CALCIUM 10 MG TABLET PO SCH (08:41)
[2019-06-23 11:24] LABS: GLUCOMETER DEV NAME(LOC) 3E.C; GLUCOSE,POINT OF CARE 91 MG/DL (70-110)
[2019-06-23 11:39] VITALS: BP 145/74
[2019-06-23 16:30] VITALS: BP 138/68
[2019-06-23 17:02] VITALS: BP 138/68
[2019-06-23 17:31] LABS: GLUCOMETER DEV NAME(LOC) 3E.C; GLUCOSE,POINT OF CARE 111 MG/DL (70-110)
[2019-06-23] MEDS: TraZODone HCL 50 MG TABLET PO SCH (21:22)
[2019-06-23 22:01] LABS: GLUCOMETER DEV NAME(LOC) 3E.C; GLUCOSE,POINT OF CARE 88 MG/DL (70-110)
[2019-06-24] MEDS: IBUPROFEN 400 MG TABLET PO PRN ×2 (05:01→20:07)
[2019-06-24 05:11] LABS: GLUCOMETER DEV NAME(LOC) 3E.C; GLUCOSE,POINT OF CARE 82 MG/DL (70-110)
[2019-06-24] MEDS: MetFORMIN HCL 500 MG TABLET PO SCH ×2 (07:07→16:29)
[2019-06-24] MEDS: DIVALPROEX SODIUM 500 MG DR TABLET PO SCH ×2 (08:01→16:29)
[2019-06-24] MEDS: LISINOPRIL 5 MG TABLET PO SCH (08:01)
[2019-06-24] MEDS: ZIPRASIDONE HCL 60 MG CAPSULE PO SCH ×2 (08:01→16:28)
[2019-06-24] MEDS: HALOPERIDOL 5 MG TABLET PO PRN ×2 (08:01→16:28)
[2019-06-24] MEDS: LORazepam 2 MG TABLET PO PRN (08:01)
[2019-06-24] MEDS: ATORVASTATIN CALCIUM 10 MG TABLET PO SCH ×2 (08:02→08:07)
[2019-06-24 09:35] VITALS: BP 116/78
[2019-06-24 11:05] LABS: GLUCOMETER DEV NAME(LOC) 3E.C; GLUCOSE,POINT OF CARE 102 MG/DL (70-110)
[2019-06-24 16:30] VITALS: BP 126/72
[2019-06-24 17:40] LABS: GLUCOMETER DEV NAME(LOC) 3E.C; GLUCOSE,POINT OF CARE 133 MG/DL (70-110)
[2019-06-24 20:01] VITALS: BP 126/72
[2019-06-24] MEDS: TraZODone HCL 50 MG TABLET PO SCH (20:32)
[2019-06-24 21:24] LABS: GLUCOMETER DEV NAME(LOC) 3E.C; GLUCOSE,POINT OF CARE 123 MG/DL (70-110)
[2019-06-25] MEDS: MetFORMIN HCL 500 MG TABLET PO SCH (06:49)
[2019-06-25 08:33] VITALS: BP 123/72
[2019-06-25] MEDS: LISINOPRIL 5 MG TABLET PO SCH (09:01)
[2019-06-25] MEDS: LORazepam 2 MG TABLET PO PRN (09:01)
[2019-06-25] MEDS: ZIPRASIDONE HCL 60 MG CAPSULE PO SCH (09:01)
[2019-06-25] MEDS: DIVALPROEX SODIUM 500 MG DR TABLET PO SCH (09:01)
[2019-06-25] MEDS: HALOPERIDOL 5 MG TABLET PO PRN (09:01)
[2019-06-25] MEDS: ATORVASTATIN CALCIUM 10 MG TABLET PO SCH (09:02)
[2019-06-25 11:43] LABS: GLUCOMETER DEV NAME(LOC) 3E.C; GLUCOSE,POINT OF CARE 128 MG/DL (70-110)
[2019-06-25] MEDS ORDERED: TRAZ-252 PO (12:06)
== END 2019-06-25 13:30 | disposition home or self-care (01) | DRG 885 ==
LOC: EMS 17:35 → 3EI 19:30 → 3EC 06-19 21:30
PROVIDERS: ADMIT Psychiatry & Neurology Psychiatry; ATTEND Psychiatry & Neurology Psychiatry
DX: F25.9 Schizoaffective disorder, unspecified (principal); R45.851 Suicidal ideations; E87.1 Hypo-osmolality and hyponatremia; E11.9 Type 2 diabetes mellitus without complications; I10 Essential (primary) hypertension; E78.5 Hyperlipidemia, unspecified; F15.10 Other stimulant abuse, uncomplicated; F31.9 Bipolar disorder, unspecified; F17.210 Nicotine dependence, cigarettes, uncomplicated; Z88.0 Allergy status to penicillin; Z59.0 Homelessness; Z88.8 Allergy status to other drugs, medicaments and biological substances; Z91.041 Radiographic dye allergy status
CPT/HCPCS: 83036; 84443; 87081; G0480

== ENCOUNTER 2019-06-28 11:03 | Emergency (ER) | payer MEDICAID, OTHER ==
[~2019-06-28] VITALS: Ht 160 cm; Wt 92.3 kg
[~2019-06-28 11:03] MED LIST changes: +ATOR10TA84 PO; +TRAZ-252 PO
[2019-06-28 11:07] VITALS: BP 139/86
[2019-06-28] MEDS ORDERED: IBUPROFEN 800 MG TABLET PO ONE (11:45)
== END 2019-06-28 12:20 | disposition left against medical advice (07) ==
LOC: EMS 11:05
DX: M79.10 Myalgia, unspecified site (principal); F12.90 Cannabis use, unspecified, uncomplicated; F15.90 Other stimulant use, unspecified, uncomplicated; F41.9 Anxiety disorder, unspecified; F32.9 Major depressive disorder, single episode, unspecified; E11.9 Type 2 diabetes mellitus without complications; I10 Essential (primary) hypertension; F20.9 Schizophrenia, unspecified; Z88.0 Allergy status to penicillin; Z91.041 Radiographic dye allergy status; Z88.8 Allergy status to other drugs, medicaments and biological substances; Z79.84 Long term (current) use of oral hypoglycemic drugs

== ENCOUNTER 2019-07-02 14:41 | Inpatient (IN) | payer MEDICAID, OTHER ==
[~2019-07-02] VITALS: Ht 160 cm; Wt 93.4 kg
[2019-07-02] MEDS ORDERED: DiphenhydrAMINE HCL 50 MG/ML VIAL IM ONE (18:45)
[2019-07-02] MEDS ORDERED: HALOPERIDOL LACTATE 5 MG/ML VIAL IM ONE (18:45)
[2019-07-02] MEDS ORDERED: LORazepam 2 MG/ML VIAL IM ONE (18:45)
[2019-07-02 21:37] LABS: BASOPHILS % (AUTO) 0.5 % (0.0-2.0); EOSINOPHILS % (AUTO) 0.8 % (1.0-6.0); HEMATOCRIT 34.8 % (36-46); HEMOGLOBIN 11.2 g/dL (12.0-16.0); LYMPHOCYTES % (AUTO) 30.2 % (22.0-44.0); MEAN CORPUSCULAR HGB CONC 32.3 G/dL (31.0-37.0); MEAN CORPUSCULAR VOLUME 90 fL (80-100); MONOCYTES # (AUTO) 0.9 K/uL (0.1-1.0); MONOCYTES % (AUTO) 6.5 % (2.0-9.0); NEUTROPHILS # (AUTO) 8.2 K/uL (1.8-7.7); PLATELET COUNT (AUTO) 229 K/uL (150-450); RED BLOOD CELL COUNT(AUTO) 3.87 MIL/uL (4.00-5.20); RED CELL DISTRIBUTION WIDTH 14.9 % (11.5-14.5)
[2019-07-02 21:44] LABS: ANION GAP 9 mmol/L (8-16); CALCIUM, TOTAL 9.2 mg/dL (8.8-10.5); CARBON DIOXIDE 28 mmol/L (22-29); CHLORIDE 103 mmol/L (98-107); CREATININE 0.78 mg/dL (0.60-1.30); GLOMERULAR FILTR. RATE CALC > 60 mL/min (>60); GLUCOSE,RANDOM 97 mg/dL (70-110); POTASSIUM 3.8 mmol/L (3.5-5.1); SODIUM SERUM 140 mmol/L (136-145); UREA NITROGEN, BLOOD 15 mg/dL (7-18)
[2019-07-02 21:57] LABS: ALANINE AMINOTRANSFERASE 25 U/L (12-78); ALBUMIN 3.4 g/dL (3.4-5.0); ALKALINE PHOSPHATASE 69 U/L (46-116); ASPARTATE AMINOTRANSFERASE 20 U/L (15-37); BILIRUBIN,TOTAL 0.3 mg/dL (0.1-1.0); HCG,QUANTITATIVE < 1 mIU/mL (0-6); TOTAL PROTEIN, SERUM 7.1 g/dL (6.4-8.2); VALPROIC ACID 20 mcg/mL (50-100)
[2019-07-02 23:59] VITALS: BP 110/74
[2019-07-03] MEDS ORDERED: HALOPERIDOL 5 MG TABLET PO PRN (00:15)
[2019-07-03] MEDS ORDERED: -PHARMACY VACCINE NOTE- MISC ONE (00:30)
[2019-07-03] MEDS ORDERED: GLUCAGON,HUMAN RECOMBINANT 1 MG VIAL IM PRN (00:45)
[2019-07-03] MEDS: MetFORMIN HCL 500 MG TABLET PO SCH ×2 (06:30→16:31)
[2019-07-03] MEDS: ATORVASTATIN CALCIUM 10 MG TABLET PO SCH (08:50)
[2019-07-03] MEDS: LISINOPRIL 5 MG TABLET PO SCH (08:50)
[2019-07-03] MEDS: LORazepam 2 MG TABLET PO PRN ×2 (08:53→16:32)
[2019-07-03] MEDS ORDERED: BENZOCAINE/MENTHOL LOZENGE MM PRN (09:30)
[2019-07-03] MEDS ORDERED: MAG HYDROX/AL HYDROX/SIMETH ES 30 ML SUSPENSION UDCUP PO PRN (09:30)
[2019-07-03] MEDS ORDERED: ONDANSETRON HCL 4 MG TABLET PO PRN (09:30)
[2019-07-03] MEDS ORDERED: CloNIDine HCL 0.1 MG TABLET PO PRN (09:30)
[2019-07-03] MEDS ORDERED: PETROLATUM,WHITE 28 GM JELLY TP PRN (09:30)
[2019-07-03] MEDS ORDERED: LOPERAMIDE HCL 2 MG CAPSULE PO PRN (09:30)
[2019-07-03] MEDS ORDERED: ALBUTEROL SULFATE HFA 90 MCG/PUFF 8 GM INHALER IH PRN (09:30)
[2019-07-03] MEDS ORDERED: BACITRACIN 28.4 GM OINTMENT TP PRN (09:30)
[2019-07-03 09:39] VITALS: BP 118/80
[2019-07-03] MEDS: IBUPROFEN 600 MG TABLET PO PRN ×2 (09:39→18:30)
[2019-07-03] MEDS: INSULIN LISPRO 100 UNITS/ML SQ PRN ×2 (11:56→16:43)
[2019-07-03 12:03] LABS: GLUCOMETER DEV NAME(LOC) BV3N.; GLUCOSE,POINT OF CARE 159 MG/DL (70-110)
[2019-07-03 16:16] VITALS: BP 120/68
[2019-07-03 16:48] LABS: GLUCOMETER DEV NAME(LOC) BV3N.; GLUCOSE,POINT OF CARE 182 MG/DL (70-110)
[2019-07-03] MEDS: ACETAMINOPHEN 325 MG TABLET PO PRN (21:24)
[2019-07-04 03:10] VITALS: BP 111/66
[2019-07-04] MEDS: MetFORMIN HCL 500 MG TABLET PO SCH ×2 (07:00→17:05)
[2019-07-04] MEDS: INSULIN LISPRO 100 UNITS/ML SQ PRN ×2 (07:07→17:22)
[2019-07-04 07:15] LABS: GLUCOMETER DEV NAME(LOC) BV3N.; GLUCOSE,POINT OF CARE 149 MG/DL (70-110)
[2019-07-04] MEDS: OMEPRAZOLE 20 MG CAPSULE PO SCH (09:16)
[2019-07-04] MEDS: LISINOPRIL 5 MG TABLET PO SCH (09:16)
[2019-07-04] MEDS: DOCUSATE SODIUM 100 MG CAPSULE PO SCH (09:16)
[2019-07-04] MEDS: ATORVASTATIN CALCIUM 10 MG TABLET PO SCH (09:16)
[2019-07-04 09:18] LABS: CHOL/HDL RATIO 2.7 (3.9-5.7)
[2019-07-04 09:28] VITALS: BP 112/80
[2019-07-04] MEDS: LORazepam 2 MG TABLET PO PRN ×2 (09:28→17:05)
[2019-07-04] MEDS: IBUPROFEN 600 MG TABLET PO PRN (09:28)
[2019-07-04 11:51] LABS: GLUCOMETER DEV NAME(LOC) BV3N.; GLUCOSE,POINT OF CARE 134 MG/DL (70-110)
[2019-07-04] MEDS: ACETAMINOPHEN 325 MG TABLET PO PRN (17:05)
[2019-07-04 17:34] LABS: GLUCOMETER DEV NAME(LOC) BV3N.; GLUCOSE,POINT OF CARE 117 MG/DL (70-110)
[2019-07-04 20:34] LABS: GLUCOMETER DEV NAME(LOC) BV3N.; GLUCOSE,POINT OF CARE 115 MG/DL (70-110)
[2019-07-05 04:32] VITALS: BP 120/67
[2019-07-05] MEDS: INSULIN LISPRO 100 UNITS/ML SQ PRN ×2 (06:36→11:15)
[2019-07-05] MEDS: MetFORMIN HCL 500 MG TABLET PO SCH ×2 (06:48→17:16)
[2019-07-05 06:52] LABS: GLUCOMETER DEV NAME(LOC) BV3N.; GLUCOSE,POINT OF CARE 161 MG/DL (70-110)
[2019-07-05 08:20] VITALS: BP 106/58
[2019-07-05] MEDS: DOCUSATE SODIUM 100 MG CAPSULE PO SCH (08:53)
[2019-07-05] MEDS: LISINOPRIL 5 MG TABLET PO SCH (08:53)
[2019-07-05] MEDS: ATORVASTATIN CALCIUM 10 MG TABLET PO SCH (08:54)
[2019-07-05] MEDS: LORazepam 2 MG TABLET PO PRN (08:54)
[2019-07-05] MEDS: OMEPRAZOLE 20 MG CAPSULE PO SCH (08:54)
[2019-07-05] MEDS: DIVALPROEX SODIUM 500 MG DR TABLET PO SCH ×2 (09:04→17:16)
[2019-07-05 11:17] LABS: GLUCOMETER DEV NAME(LOC) BV3N.; GLUCOSE,POINT OF CARE 175 MG/DL (70-110)
[2019-07-05 16:18] VITALS: BP 106/58
[2019-07-05] MEDS: ZIPRASIDONE HCL 60 MG CAPSULE PO SCH (17:17)
[2019-07-05] MEDS: TraZODone HCL 50 MG TABLET PO SCH (20:40)
[2019-07-05] MEDS: ACETAMINOPHEN 325 MG TABLET PO PRN (20:41)
[2019-07-06] MEDS: ZIPRASIDONE HCL 60 MG CAPSULE PO SCH ×2 (06:36→16:19)
[2019-07-06] MEDS: MetFORMIN HCL 500 MG TABLET PO SCH ×2 (06:38→16:19)
[2019-07-06 08:18] VITALS: BP 104/58
[2019-07-06] MEDS: ATORVASTATIN CALCIUM 10 MG TABLET PO SCH (08:48)
[2019-07-06] MEDS: DOCUSATE SODIUM 100 MG CAPSULE PO SCH (08:48)
[2019-07-06] MEDS: OMEPRAZOLE 20 MG CAPSULE PO SCH (08:48)
[2019-07-06] MEDS: DIVALPROEX SODIUM 500 MG DR TABLET PO SCH ×2 (08:48→16:20)
[2019-07-06] MEDS: LISINOPRIL 5 MG TABLET PO SCH (08:49)
[2019-07-06 11:08] LABS: GLUCOMETER DEV NAME(LOC) BV3N.; GLUCOSE,POINT OF CARE 108 MG/DL (70-110)
[2019-07-06 16:37] LABS: GLUCOMETER DEV NAME(LOC) BV3N.; GLUCOSE,POINT OF CARE 184 MG/DL (70-110)
[2019-07-06] MEDS: INSULIN LISPRO 100 UNITS/ML SQ PRN (16:46)
[2019-07-06 17:02] VITALS: BP 113/66
[2019-07-06 17:04] VITALS: BP 125/89
[2019-07-06] MEDS: TraZODone HCL 50 MG TABLET PO SCH (20:18)
[2019-07-06 20:41] LABS: GLUCOMETER DEV NAME(LOC) BV3N.; GLUCOSE,POINT OF CARE 123 MG/DL (70-110)
[2019-07-07] MEDS: MetFORMIN HCL 500 MG TABLET PO SCH ×2 (06:05→16:01)
[2019-07-07] MEDS: ZIPRASIDONE HCL 60 MG CAPSULE PO SCH ×2 (06:49→16:00)
[2019-07-07 08:00] VITALS: BP 110/72
[2019-07-07] MEDS: DIVALPROEX SODIUM 500 MG DR TABLET PO SCH ×2 (08:49→16:01)
[2019-07-07] MEDS: DOCUSATE SODIUM 100 MG CAPSULE PO SCH (08:49)
[2019-07-07] MEDS: OMEPRAZOLE 20 MG CAPSULE PO SCH (08:49)
[2019-07-07] MEDS: ATORVASTATIN CALCIUM 10 MG TABLET PO SCH (08:49)
[2019-07-07] MEDS: LORazepam 2 MG TABLET PO PRN ×2 (08:54→16:08)
[2019-07-07] MEDS: LISINOPRIL 5 MG TABLET PO SCH (08:55)
[2019-07-07] MEDS: MAGNESIUM HYDROXIDE SUSPENSION 30 ML UDCUP PO PRN ×2 (08:56→17:10)
[2019-07-07 10:57] LABS: GLUCOMETER DEV NAME(LOC) BV3N.; GLUCOSE,POINT OF CARE 101 MG/DL (70-110)
[2019-07-07 12:01] LABS: GLUCOMETER DEV NAME(LOC) BV3N.; GLUCOSE,POINT OF CARE 110 MG/DL (70-110)
[2019-07-07 16:20] LABS: GLUCOMETER DEV NAME(LOC) BV3N.; GLUCOSE,POINT OF CARE 146 MG/DL (70-110)
[2019-07-07 17:15] VITALS: BP 119/66
[2019-07-07] MEDS: INSULIN LISPRO 100 UNITS/ML SQ PRN (17:42)
[2019-07-07] MEDS: TraZODone HCL 50 MG TABLET PO SCH (20:24)
[2019-07-08 04:04] VITALS: BP 110/60
[2019-07-08 06:09] LABS: GLUCOMETER DEV NAME(LOC) BV3N.; GLUCOSE,POINT OF CARE 151 MG/DL (70-110)
[2019-07-08] MEDS: INSULIN LISPRO 100 UNITS/ML SQ PRN ×2 (06:24→16:51)
[2019-07-08] MEDS: ZIPRASIDONE HCL 60 MG CAPSULE PO SCH ×2 (06:25→16:48)
[2019-07-08] MEDS: MetFORMIN HCL 500 MG TABLET PO SCH ×2 (06:26→16:48)
[2019-07-08] MEDS: DIVALPROEX SODIUM 500 MG DR TABLET PO SCH ×2 (08:23→16:48)
[2019-07-08] MEDS: DOCUSATE SODIUM 100 MG CAPSULE PO SCH (08:23)
[2019-07-08] MEDS: LISINOPRIL 5 MG TABLET PO SCH (08:23)
[2019-07-08 08:24] VITALS: BP 124/77
[2019-07-08] MEDS: OMEPRAZOLE 20 MG CAPSULE PO SCH (08:24)
[2019-07-08] MEDS: ATORVASTATIN CALCIUM 10 MG TABLET PO SCH (08:24)
[2019-07-08] MEDS: LORazepam 2 MG TABLET PO PRN (08:27)
[2019-07-08] MEDS: MAGNESIUM HYDROXIDE SUSPENSION 30 ML UDCUP PO PRN (10:17)
[2019-07-08 11:21] LABS: GLUCOMETER DEV NAME(LOC) BV3N.; GLUCOSE,POINT OF CARE 97 MG/DL (70-110)
[2019-07-08] MEDS ORDERED: MAGNESIUM CITRATE 300 ML ORAL SOLUTION PO ONE (13:45)
[2019-07-08 16:35] VITALS: BP 101/60
[2019-07-08 16:40] LABS: GLUCOMETER DEV NAME(LOC) BV3N.; GLUCOSE,POINT OF CARE 157 MG/DL (70-110)
[2019-07-08] MEDS: TraZODone HCL 50 MG TABLET PO SCH (21:01)
[2019-07-08 23:17] LABS: GLUCOMETER DEV NAME(LOC) BV3N.; GLUCOSE,POINT OF CARE 131 MG/DL (70-110)
[2019-07-09 03:41] VITALS: BP 120/68
[2019-07-09 06:23] LABS: GLUCOMETER DEV NAME(LOC) BV3N.; GLUCOSE,POINT OF CARE 88 MG/DL (70-110)
[2019-07-09] MEDS: ZIPRASIDONE HCL 60 MG CAPSULE PO SCH ×2 (06:27→16:06)
[2019-07-09] MEDS: MetFORMIN HCL 500 MG TABLET PO SCH ×2 (06:27→16:06)
[2019-07-09] MEDS: ATORVASTATIN CALCIUM 10 MG TABLET PO SCH (09:19)
[2019-07-09] MEDS: OMEPRAZOLE 20 MG CAPSULE PO SCH (09:19)
[2019-07-09] MEDS: LISINOPRIL 5 MG TABLET PO SCH (09:19)
[2019-07-09] MEDS: DOCUSATE SODIUM 100 MG CAPSULE PO SCH (09:19)
[2019-07-09] MEDS: DIVALPROEX SODIUM 500 MG DR TABLET PO SCH ×2 (09:19→16:07)
[2019-07-09] MEDS: LORazepam 2 MG TABLET PO PRN (09:22)
[2019-07-09 16:10] VITALS: BP 106/61
[2019-07-09] MEDS ORDERED: TUBERCULIN, PURIFIED PROTEIN DERIVATIVE 5 TU/0.1 ML SYRINGE ID ONE (16:30)
[2019-07-09 16:31] LABS: GLUCOMETER DEV NAME(LOC) BV3N.; GLUCOSE,POINT OF CARE 156 MG/DL (70-110)
[2019-07-09] MEDS: INSULIN LISPRO 100 UNITS/ML SQ PRN (17:11)
[2019-07-09] MEDS: TraZODone HCL 50 MG TABLET PO SCH (20:27)
[2019-07-10] MEDS: ZOLPIDEM TARTRATE 10 MG TABLET PO PRN (03:33)
[2019-07-10 04:07] VITALS: BP 101/68
[2019-07-10] MEDS: MetFORMIN HCL 500 MG TABLET PO SCH ×2 (06:15→16:09)
[2019-07-10] MEDS: ZIPRASIDONE HCL 60 MG CAPSULE PO SCH ×2 (06:15→16:09)
[2019-07-10 06:47] LABS: GLUCOMETER DEV NAME(LOC) BV3N.; GLUCOSE,POINT OF CARE 126 MG/DL (70-110)
[2019-07-10] MEDS: LISINOPRIL 5 MG TABLET PO SCH (09:00)
[2019-07-10] MEDS: OMEPRAZOLE 20 MG CAPSULE PO SCH (09:00)
[2019-07-10] MEDS: DIVALPROEX SODIUM 500 MG DR TABLET PO SCH ×2 (09:11→16:08)
[2019-07-10] MEDS: DOCUSATE SODIUM 100 MG CAPSULE PO SCH (09:11)
[2019-07-10] MEDS: ATORVASTATIN CALCIUM 10 MG TABLET PO SCH (09:11)
[2019-07-10] MEDS: MULTIVITAMINS WITH IRON TABLET PO SCH (09:12)
[2019-07-10 10:50] VITALS: BP 96/68
[2019-07-10 12:09] LABS: GLUCOMETER DEV NAME(LOC) BV3N.; GLUCOSE,POINT OF CARE 116 MG/DL (70-110)
[2019-07-10] MEDS: ACETAMINOPHEN 325 MG TABLET PO PRN (16:09)
[2019-07-10 16:14] VITALS: BP 148/74
[2019-07-10 16:19] LABS: GLUCOMETER DEV NAME(LOC) BV3N.; GLUCOSE,POINT OF CARE 163 MG/DL (70-110)
[2019-07-10] MEDS: INSULIN LISPRO 100 UNITS/ML SQ PRN (17:00)
[2019-07-10] MEDS: TraZODone HCL 50 MG TABLET PO SCH (21:00)
[2019-07-10 21:16] LABS: GLUCOMETER DEV NAME(LOC) BV3N.; GLUCOSE,POINT OF CARE 108 MG/DL (70-110)
[2019-07-11 06:24] LABS: GLUCOMETER DEV NAME(LOC) BV3S.; GLUCOSE,POINT OF CARE 92 MG/DL (70-110)
[2019-07-11] MEDS: ZIPRASIDONE HCL 60 MG CAPSULE PO SCH ×6 (06:42→17:00)
[2019-07-11] MEDS: MetFORMIN HCL 500 MG TABLET PO SCH ×6 (06:43→17:00)
[2019-07-11] MEDS: ACETAMINOPHEN 325 MG TABLET PO PRN ×2 (07:27→16:58)
[2019-07-11] MEDS: OMEPRAZOLE 20 MG CAPSULE PO SCH (09:00)
[2019-07-11] MEDS: LISINOPRIL 5 MG TABLET PO SCH (09:15)
[2019-07-11] MEDS: ATORVASTATIN CALCIUM 10 MG TABLET PO SCH (09:15)
[2019-07-11] MEDS: DIVALPROEX SODIUM 500 MG DR TABLET PO SCH ×2 (09:15→16:30)
[2019-07-11] MEDS: DOCUSATE SODIUM 100 MG CAPSULE PO SCH (09:15)
[2019-07-11] MEDS: MULTIVITAMINS WITH IRON TABLET PO SCH (09:15)
[2019-07-11] MEDS: LORazepam 2 MG TABLET PO PRN (09:19)
[2019-07-11] MEDS ORDERED: LORazepam 2 MG/ML VIAL ONE (10:44)
[2019-07-11] MEDS ORDERED: DiphenhydrAMINE HCL 50 MG/ML VIAL ONE (10:45)
[2019-07-11] MEDS ORDERED: HALOPERIDOL LACTATE 5 MG/ML VIAL ONE (10:45)
[2019-07-11] MEDS ORDERED: DiphenhydrAMINE HCL 50 MG/ML VIAL IM ONE (11:00)
[2019-07-11] MEDS ORDERED: HALOPERIDOL LACTATE 5 MG/ML VIAL IM ONE (11:00)
[2019-07-11] MEDS ORDERED: LORazepam 2 MG/ML VIAL IM ONE (11:00)
[2019-07-11 11:28] LABS: GLUCOMETER DEV NAME(LOC) BV3S.; GLUCOSE,POINT OF CARE 140 MG/DL (70-110)
[2019-07-11 16:25] LABS: GLUCOMETER DEV NAME(LOC) BV3S.; GLUCOSE,POINT OF CARE 187 MG/DL (70-110)
[2019-07-11] MEDS: INSULIN LISPRO 100 UNITS/ML SQ PRN (16:34)
[2019-07-11 16:58] VITALS: BP 81/60
[2019-07-11 20:14] VITALS: BP 122/56
[2019-07-11] MEDS: ZOLPIDEM TARTRATE 10 MG TABLET PO PRN (20:25)
[2019-07-11] MEDS: TraZODone HCL 50 MG TABLET PO SCH (20:25)
[2019-07-12 03:20] VITALS: BP_SYST 124; BP_SYST 24; BP_DIAS 62
[2019-07-12] MEDS: MetFORMIN HCL 500 MG TABLET PO SCH ×2 (06:34→16:31)
[2019-07-12 06:41] LABS: GLUCOMETER DEV NAME(LOC) BV3S.; GLUCOSE,POINT OF CARE 122 MG/DL (70-110)
[2019-07-12] MEDS: ATORVASTATIN CALCIUM 10 MG TABLET PO SCH (08:42)
[2019-07-12] MEDS: DOCUSATE SODIUM 100 MG CAPSULE PO SCH (08:42)
[2019-07-12] MEDS: DIVALPROEX SODIUM 500 MG DR TABLET PO SCH ×2 (08:42→16:31)
[2019-07-12] MEDS: MULTIVITAMINS WITH IRON TABLET PO SCH (08:42)
[2019-07-12] MEDS: OMEPRAZOLE 20 MG CAPSULE PO SCH (08:44)
[2019-07-12] MEDS: LISINOPRIL 5 MG TABLET PO SCH (08:45)
[2019-07-12] MEDS: INSULIN LISPRO 100 UNITS/ML SQ PRN ×2 (11:40→17:05)
[2019-07-12 11:47] LABS: GLUCOMETER DEV NAME(LOC) BV3S.; GLUCOSE,POINT OF CARE 157 MG/DL (70-110)
[2019-07-12 16:15] VITALS: BP 108/72
[2019-07-12] MEDS: LURASIDONE HCL 40 MG TABLET PO SCH (16:31)
[2019-07-12 16:48] LABS: GLUCOMETER DEV NAME(LOC) BV3S.; GLUCOSE,POINT OF CARE 202 MG/DL (70-110)
[2019-07-12] MEDS: ACETAMINOPHEN 325 MG TABLET PO PRN (17:53)
[2019-07-12] MEDS: TraZODone HCL 50 MG TABLET PO SCH (20:07)
[2019-07-12 20:23] LABS: GLUCOMETER DEV NAME(LOC) BV3S.; GLUCOSE,POINT OF CARE 147 MG/DL (70-110)
[2019-07-13 01:46] VITALS: BP 128/72
[2019-07-13] MEDS: ACETAMINOPHEN 325 MG TABLET PO PRN ×2 (05:42→16:55)
[2019-07-13] MEDS: MetFORMIN HCL 500 MG TABLET PO SCH ×2 (06:36→16:55)
[2019-07-13] MEDS: LURASIDONE HCL 40 MG TABLET PO SCH ×2 (06:37→16:55)
[2019-07-13 08:26] VITALS: BP 129/79
[2019-07-13] MEDS: MULTIVITAMINS WITH IRON TABLET PO SCH (08:56)
[2019-07-13] MEDS: DIVALPROEX SODIUM 500 MG DR TABLET PO SCH ×2 (08:56→16:55)
[2019-07-13] MEDS: DOCUSATE SODIUM 100 MG CAPSULE PO SCH (08:56)
[2019-07-13] MEDS: LISINOPRIL 5 MG TABLET PO SCH (08:56)
[2019-07-13] MEDS: ATORVASTATIN CALCIUM 10 MG TABLET PO SCH (08:56)
[2019-07-13] MEDS: OMEPRAZOLE 20 MG CAPSULE PO SCH (08:57)
[2019-07-13] MEDS: IBUPROFEN 600 MG TABLET PO PRN (13:06)
[2019-07-13 16:24] VITALS: BP 138/77
[2019-07-13 16:39] LABS: GLUCOMETER DEV NAME(LOC) BV3S.; GLUCOSE,POINT OF CARE 118 MG/DL (70-110)
[2019-07-13] MEDS: TraZODone HCL 50 MG TABLET PO SCH (20:56)
[2019-07-14 03:58] VITALS: BP 122/68
[2019-07-14] MEDS: ACETAMINOPHEN 325 MG TABLET PO PRN ×2 (04:30→16:08)
[2019-07-14 06:31] LABS: GLUCOMETER DEV NAME(LOC) BV3S.; GLUCOSE,POINT OF CARE 81 MG/DL (70-110)
[2019-07-14] MEDS: MetFORMIN HCL 500 MG TABLET PO SCH ×2 (06:32→16:09)
[2019-07-14] MEDS: LURASIDONE HCL 40 MG TABLET PO SCH ×2 (06:32→16:09)
[2019-07-14] MEDS: LISINOPRIL 5 MG TABLET PO SCH (09:00)
[2019-07-14] MEDS: OMEPRAZOLE 20 MG CAPSULE PO SCH (09:00)
[2019-07-14] MEDS: DOCUSATE SODIUM 100 MG CAPSULE PO SCH (09:33)
[2019-07-14] MEDS: ATORVASTATIN CALCIUM 10 MG TABLET PO SCH (09:33)
[2019-07-14] MEDS: MULTIVITAMINS WITH IRON TABLET PO SCH (09:33)
[2019-07-14] MEDS: DIVALPROEX SODIUM 500 MG DR TABLET PO SCH ×2 (09:33→16:09)
[2019-07-14 11:54] LABS: GLUCOMETER DEV NAME(LOC) BV3S.; GLUCOSE,POINT OF CARE 95 MG/DL (70-110)
[2019-07-14 16:08] VITALS: BP 129/75
[2019-07-14] MEDS: LORazepam 2 MG TABLET PO PRN (16:09)
[2019-07-14 16:16] LABS: GLUCOMETER DEV NAME(LOC) BV3S.; GLUCOSE,POINT OF CARE 123 MG/DL (70-110)
[2019-07-14 16:26] VITALS: BP 129/75
[2019-07-14] MEDS: TraZODone HCL 50 MG TABLET PO SCH (20:51)
[2019-07-15] MEDS: ACETAMINOPHEN 325 MG TABLET PO PRN ×2 (00:05→12:58)
[2019-07-15] MEDS: LORazepam 2 MG TABLET PO PRN ×2 (00:05→12:58)
[2019-07-15 00:16] VITALS: BP 139/76
[2019-07-15] MEDS: MetFORMIN HCL 500 MG TABLET PO SCH ×2 (07:02→17:08)
[2019-07-15] MEDS: LURASIDONE HCL 40 MG TABLET PO SCH ×2 (07:02→17:08)
[2019-07-15 08:24] VITALS: BP 142/79
[2019-07-15] MEDS: MULTIVITAMINS WITH IRON TABLET PO SCH (08:41)
[2019-07-15] MEDS: DOCUSATE SODIUM 100 MG CAPSULE PO SCH (08:41)
[2019-07-15] MEDS: DIVALPROEX SODIUM 500 MG DR TABLET PO SCH ×2 (08:41→17:08)
[2019-07-15] MEDS: ATORVASTATIN CALCIUM 10 MG TABLET PO SCH (08:42)
[2019-07-15] MEDS: OMEPRAZOLE 20 MG CAPSULE PO SCH (08:42)
[2019-07-15] MEDS: LISINOPRIL 5 MG TABLET PO SCH (08:42)
[2019-07-15 11:21] LABS: GLUCOMETER DEV NAME(LOC) BV3S.; GLUCOSE,POINT OF CARE 127 MG/DL (70-110)
[2019-07-15 16:33] VITALS: BP 130/74
[2019-07-15] MEDS: INSULIN LISPRO 100 UNITS/ML SQ PRN (17:10)
[2019-07-15 18:04] LABS: GLUCOMETER DEV NAME(LOC) BV3S.; GLUCOSE,POINT OF CARE 141 MG/DL (70-110)
[2019-07-15] MEDS: TraZODone HCL 50 MG TABLET PO SCH (21:10)
[2019-07-16 05:54] VITALS: BP 113/67
[2019-07-16] MEDS: MetFORMIN HCL 500 MG TABLET PO SCH ×2 (06:49→15:50)
[2019-07-16] MEDS: LURASIDONE HCL 40 MG TABLET PO SCH ×2 (06:49→15:50)
[2019-07-16] MEDS: OMEPRAZOLE 20 MG CAPSULE PO SCH (09:00)
[2019-07-16] MEDS: ATORVASTATIN CALCIUM 10 MG TABLET PO SCH (09:06)
[2019-07-16] MEDS: DIVALPROEX SODIUM 500 MG DR TABLET PO SCH (09:06)
[2019-07-16] MEDS: DOCUSATE SODIUM 100 MG CAPSULE PO SCH (09:06)
[2019-07-16] MEDS: MULTIVITAMINS WITH IRON TABLET PO SCH (09:06)
[2019-07-16] MEDS: LISINOPRIL 5 MG TABLET PO SCH (09:07)
[2019-07-16] MEDS: LORazepam 2 MG TABLET PO PRN (14:39)
[2019-07-16] MEDS: ACETAMINOPHEN 325 MG TABLET PO PRN (14:39)
[2019-07-16] MEDS: DIVALPROEX SODIUM 250 MG DR TABLET PO SCH (15:50)
[2019-07-16 16:18] VITALS: BP 100/65
[2019-07-16 16:46] LABS: GLUCOMETER DEV NAME(LOC) BV3S.; GLUCOSE,POINT OF CARE 160 MG/DL (70-110)
[2019-07-16] MEDS: INSULIN LISPRO 100 UNITS/ML SQ PRN (16:54)
[2019-07-16 20:56] LABS: GLUCOMETER DEV NAME(LOC) BV3S.; GLUCOSE,POINT OF CARE 112 MG/DL (70-110)
[2019-07-16] MEDS: TraZODone HCL 50 MG TABLET PO SCH (21:06)
[2019-07-17 02:15] VITALS: BP 102/72
[2019-07-17] MEDS: MetFORMIN HCL 500 MG TABLET PO SCH ×2 (06:43→15:54)
[2019-07-17] MEDS: LURASIDONE HCL 40 MG TABLET PO SCH ×2 (06:43→15:55)
[2019-07-17] MEDS: LISINOPRIL 5 MG TABLET PO SCH (09:00)
[2019-07-17] MEDS: OMEPRAZOLE 20 MG CAPSULE PO SCH (09:00)
[2019-07-17] MEDS: DIVALPROEX SODIUM 250 MG DR TABLET PO SCH ×2 (09:05→15:54)
[2019-07-17] MEDS: MULTIVITAMINS WITH IRON TABLET PO SCH (09:05)
[2019-07-17] MEDS: ATORVASTATIN CALCIUM 10 MG TABLET PO SCH (09:06)
[2019-07-17] MEDS: DOCUSATE SODIUM 100 MG CAPSULE PO SCH (09:06)
[2019-07-17] MEDS: LORazepam 2 MG TABLET PO PRN ×2 (10:12→15:59)
[2019-07-17 10:13] VITALS: BP 116/74
[2019-07-17] MEDS: ACETAMINOPHEN 325 MG TABLET PO PRN (10:13)
[2019-07-17 11:12] LABS: GLUCOMETER DEV NAME(LOC) BV3S.; GLUCOSE,POINT OF CARE 123 MG/DL (70-110)
[2019-07-17] MEDS: IBUPROFEN 600 MG TABLET PO PRN (15:59)
[2019-07-17 16:10] LABS: GLUCOMETER DEV NAME(LOC) BV3S.; GLUCOSE,POINT OF CARE 151 MG/DL (70-110)
[2019-07-17 16:23] VITALS: BP 113/72
[2019-07-17] MEDS: INSULIN LISPRO 100 UNITS/ML SQ PRN (17:16)
[2019-07-17] MEDS: TraZODone HCL 50 MG TABLET PO SCH (20:16)
[2019-07-18 01:55] VITALS: BP 105/63
[2019-07-18] MEDS: LURASIDONE HCL 40 MG TABLET PO SCH ×2 (06:31→16:08)
[2019-07-18] MEDS: MetFORMIN HCL 500 MG TABLET PO SCH ×2 (06:31→16:08)
[2019-07-18 06:37] LABS: GLUCOMETER DEV NAME(LOC) BV3S.; GLUCOSE,POINT OF CARE 88 MG/DL (70-110)
[2019-07-18] MEDS: MULTIVITAMINS WITH IRON TABLET PO SCH (08:48)
[2019-07-18] MEDS: DIVALPROEX SODIUM 250 MG DR TABLET PO SCH ×2 (08:48→16:08)
[2019-07-18] MEDS: ATORVASTATIN CALCIUM 10 MG TABLET PO SCH (08:48)
[2019-07-18] MEDS: OMEPRAZOLE 20 MG CAPSULE PO SCH (08:49)
[2019-07-18] MEDS: DOCUSATE SODIUM 100 MG CAPSULE PO SCH (08:49)
[2019-07-18] MEDS: LISINOPRIL 5 MG TABLET PO SCH (08:49)
[2019-07-18 10:40] VITALS: BP 125/66
[2019-07-18 11:17] LABS: GLUCOMETER DEV NAME(LOC) BV3S.; GLUCOSE,POINT OF CARE 106 MG/DL (70-110)
[2019-07-18] MEDS: LORazepam 2 MG TABLET PO PRN (12:18)
[2019-07-18] MEDS: ACETAMINOPHEN 325 MG TABLET PO PRN ×2 (12:19→20:42)
[2019-07-18 16:08] VITALS: BP 123/79
[2019-07-18] MEDS: IBUPROFEN 600 MG TABLET PO PRN (16:08)
[2019-07-18 16:34] LABS: GLUCOMETER DEV NAME(LOC) BV3S.; GLUCOSE,POINT OF CARE 136 MG/DL (70-110)
[2019-07-18 16:35] VITALS: BP 123/79
[2019-07-18] MEDS: TraZODone HCL 50 MG TABLET PO SCH (20:14)
[2019-07-18 20:24] LABS: GLUCOMETER DEV NAME(LOC) BV3S.; GLUCOSE,POINT OF CARE 130 MG/DL (70-110)
[2019-07-18 20:42] VITALS: BP 118/80
[2019-07-19 04:51] VITALS: BP 122/77
[2019-07-19] MEDS: MetFORMIN HCL 500 MG TABLET PO SCH ×2 (06:43→16:49)
[2019-07-19] MEDS: LURASIDONE HCL 40 MG TABLET PO SCH ×2 (06:43→16:50)
[2019-07-19] MEDS: OMEPRAZOLE 20 MG CAPSULE PO SCH (09:00)
[2019-07-19] MEDS: DOCUSATE SODIUM 100 MG CAPSULE PO SCH (09:04)
[2019-07-19] MEDS: MULTIVITAMINS WITH IRON TABLET PO SCH (09:04)
[2019-07-19] MEDS: ATORVASTATIN CALCIUM 10 MG TABLET PO SCH (09:04)
[2019-07-19] MEDS: DIVALPROEX SODIUM 250 MG DR TABLET PO SCH ×2 (09:05→16:49)
[2019-07-19] MEDS: LISINOPRIL 5 MG TABLET PO SCH (09:05)
[2019-07-19 09:07] VITALS: BP 110/70
[2019-07-19] MEDS: ACETAMINOPHEN 325 MG TABLET PO PRN (09:07)
[2019-07-19] MEDS: LORazepam 2 MG TABLET PO PRN (09:09)
[2019-07-19 09:13] VITALS: BP 110/71
[2019-07-19 11:12] LABS: GLUCOMETER DEV NAME(LOC) BV3S.; GLUCOSE,POINT OF CARE 117 MG/DL (70-110)
[2019-07-19 16:30] LABS: GLUCOMETER DEV NAME(LOC) BV3S.; GLUCOSE,POINT OF CARE 141 MG/DL (70-110)
[2019-07-19 20:27] LABS: GLUCOMETER DEV NAME(LOC) BV3S.; GLUCOSE,POINT OF CARE 80 MG/DL (70-110)
[2019-07-19] MEDS: TraZODone HCL 50 MG TABLET PO SCH (20:49)
[2019-07-20 01:08] VITALS: BP 108/63
[2019-07-20] MEDS: LURASIDONE HCL 40 MG TABLET PO SCH ×2 (06:44→16:32)
[2019-07-20] MEDS: MetFORMIN HCL 500 MG TABLET PO SCH ×2 (06:44→16:32)
[2019-07-20] MEDS: DOCUSATE SODIUM 100 MG CAPSULE PO SCH (08:38)
[2019-07-20] MEDS: ATORVASTATIN CALCIUM 10 MG TABLET PO SCH (08:38)
[2019-07-20] MEDS: LISINOPRIL 5 MG TABLET PO SCH (08:38)
[2019-07-20] MEDS: DIVALPROEX SODIUM 250 MG DR TABLET PO SCH ×2 (08:38→16:32)
[2019-07-20] MEDS: MULTIVITAMINS WITH IRON TABLET PO SCH (08:38)
[2019-07-20] MEDS: OMEPRAZOLE 20 MG CAPSULE PO SCH (08:48)
[2019-07-20] MEDS: INSULIN LISPRO 100 UNITS/ML SQ PRN (12:04)
[2019-07-20] MEDS: ACETAMINOPHEN 325 MG TABLET PO PRN (12:07)
[2019-07-20] MEDS: LORazepam 2 MG TABLET PO PRN (12:07)
[2019-07-20 12:35] LABS: GLUCOMETER DEV NAME(LOC) BV3S.; GLUCOSE,POINT OF CARE 172 MG/DL (70-110)
[2019-07-20 16:20] LABS: GLUCOMETER DEV NAME(LOC) BV3S.; GLUCOSE,POINT OF CARE 137 MG/DL (70-110)
[2019-07-20 17:26] VITALS: BP 101/66
[2019-07-20 20:24] LABS: GLUCOMETER DEV NAME(LOC) BV3S.; GLUCOSE,POINT OF CARE 101 MG/DL (70-110)
[2019-07-20] MEDS: TraZODone HCL 50 MG TABLET PO SCH (20:38)
[2019-07-21 05:53] VITALS: BP 105/67
[2019-07-21 06:11] LABS: GLUCOMETER DEV NAME(LOC) BV3S.; GLUCOSE,POINT OF CARE 87 MG/DL (70-110)
[2019-07-21] MEDS: LURASIDONE HCL 40 MG TABLET PO SCH (06:26)
[2019-07-21] MEDS: MetFORMIN HCL 500 MG TABLET PO SCH (06:27)
[2019-07-21 08:21] VITALS: BP 106/58
[2019-07-21] MEDS: DOCUSATE SODIUM 100 MG CAPSULE PO SCH (08:21)
[2019-07-21] MEDS: ATORVASTATIN CALCIUM 10 MG TABLET PO SCH (08:21)
[2019-07-21] MEDS: DIVALPROEX SODIUM 250 MG DR TABLET PO SCH (08:21)
[2019-07-21] MEDS: MULTIVITAMINS WITH IRON TABLET PO SCH (08:21)
[2019-07-21] MEDS: OMEPRAZOLE 20 MG CAPSULE PO SCH (08:21)
[2019-07-21] MEDS: LISINOPRIL 5 MG TABLET PO SCH (08:26)
[2019-07-21] MEDS: INSULIN LISPRO 100 UNITS/ML SQ PRN (12:01)
[2019-07-21 12:05] LABS: GLUCOMETER DEV NAME(LOC) BV3S.; GLUCOSE,POINT OF CARE 145 MG/DL (70-110)
[2019-07-21] MEDS ORDERED: LURA40TA2 PO (13:02)
== END 2019-07-21 15:33 | disposition home or self-care (01) | DRG 750 ==
LOC: EMS 14:44 → B3A 21:00
PROVIDERS: ADMIT Psychiatry & Neurology Psychiatry; ATTEND Psychiatry & Neurology Psychiatry
DX: F25.0 Schizoaffective disorder, bipolar type (principal); E11.9 Type 2 diabetes mellitus without complications; B37.9 Candidiasis, unspecified; F12.90 Cannabis use, unspecified, uncomplicated; E78.5 Hyperlipidemia, unspecified; E78.00 Pure hypercholesterolemia, unspecified; F15.90 Other stimulant use, unspecified, uncomplicated; F17.210 Nicotine dependence, cigarettes, uncomplicated; F32.9 Major depressive disorder, single episode, unspecified; F41.9 Anxiety disorder, unspecified; Z88.0 Allergy status to penicillin; Z88.8 Allergy status to other drugs, medicaments and biological substances; I10 Essential (primary) hypertension; J44.9 Chronic obstructive pulmonary disease, unspecified; K21.9 Gastro-esophageal reflux disease without esophagitis; G47.00 Insomnia, unspecified; K59.00 Constipation, unspecified; F19.10 Other psychoactive substance abuse, uncomplicated
CPT/HCPCS: 99291; G0480; J1200; J1630; J2060

== ENCOUNTER 2019-07-29 02:50 | Emergency (ER) | payer MEDICAID, OTHER ==
[~2019-07-29] VITALS: Ht 160 cm; Wt 90.9 kg
[~2019-07-29 02:50] MED LIST changes: +LURA40TA2 PO; -ZIPR60CA2 PO
[2019-07-29 04:42] LABS: BASOPHILS % (AUTO) 0.2 % (0.0-2.0); EOSINOPHILS % (AUTO) 0.4 % (1.0-6.0); HEMATOCRIT 31.5 % (36-46); HEMOGLOBIN 10.6 g/dL (12.0-16.0); LYMPHOCYTES # (AUTO) 2.6 K/uL (1.0-4.8); LYMPHOCYTES % (AUTO) 22.5 % (22.0-44.0); MEAN CORPUSCULAR HEMOGLOBIN 30.6 pg (26.0-34.0); MEAN CORPUSCULAR HGB CONC 33.6 G/dL (31.0-37.0); MEAN CORPUSCULAR VOLUME 91 fL (80-100); MONOCYTES % (AUTO) 8.4 % (2.0-9.0); NEUTROPHILS # (AUTO) 7.8 K/uL (1.8-7.7); NEUTROPHILS % (AUTO) 68.5 % (40.0-70.0); PLATELET COUNT (AUTO) 244 K/uL (150-450); RED BLOOD CELL COUNT(AUTO) 3.46 MIL/uL (4.00-5.20); RED CELL DISTRIBUTION WIDTH 14.5 % (11.5-14.5)
[2019-07-29 04:47] LABS: ANION GAP 15 mmol/L (8-16); CALCIUM, TOTAL 8.2 mg/dL (8.8-10.5); CARBON DIOXIDE 21 mmol/L (22-29); CHLORIDE 102 mmol/L (98-107); CREATININE 0.87 mg/dL (0.60-1.30); GLOMERULAR FILTR. RATE CALC > 60 mL/min (>60); GLUCOSE,RANDOM 144 mg/dL (70-110); POTASSIUM 3.4 mmol/L (3.5-5.1); SODIUM SERUM 138 mmol/L (136-145); UREA NITROGEN, BLOOD 14 mg/dL (7-18)
[2019-07-29 04:58] LABS: ALANINE AMINOTRANSFERASE 47 U/L (12-78); ALBUMIN 3.3 g/dL (3.4-5.0); ALKALINE PHOSPHATASE 87 U/L (46-116); ASPARTATE AMINOTRANSFERASE 44 U/L (15-37); BILIRUBIN,TOTAL 0.5 mg/dL (0.1-1.0); HCG,QUANTITATIVE < 1 mIU/mL (0-6); TOTAL PROTEIN, SERUM 6.8 g/dL (6.4-8.2)
[2019-07-29 05:06] VITALS: BP 138/104
== END 2019-07-29 05:09 | disposition home or self-care (01) ==
LOC: EMS 02:50
DX: F31.9 Bipolar disorder, unspecified (principal); D64.9 Anemia, unspecified; F17.210 Nicotine dependence, cigarettes, uncomplicated; F15.90 Other stimulant use, unspecified, uncomplicated; F12.90 Cannabis use, unspecified, uncomplicated; E11.9 Type 2 diabetes mellitus without complications; I10 Essential (primary) hypertension; Z79.84 Long term (current) use of oral hypoglycemic drugs; Z88.0 Allergy status to penicillin; Z79.899 Other long term (current) drug therapy; Z59.0 Homelessness
CPT/HCPCS: 36415; 80053; 84702; 85025; 99284; G0480

== ENCOUNTER 2019-07-29 11:23 | Inpatient (IN) | payer MEDICAID, OTHER ==
[~2019-07-29] VITALS: Ht 160 cm; Wt 91.2 kg
[~2019-07-29 11:23] MED LIST changes: +DIVA-112 PO; -DIVA-78 PO
[2019-07-29] MEDS ORDERED: HALOPERIDOL LACTATE 5 MG/ML VIAL IM ONE (12:00)
[2019-07-29] MEDS ORDERED: LORazepam 2 MG/ML VIAL IM ONE (12:00)
[2019-07-29] MEDS ORDERED: DiphenhydrAMINE HCL 50 MG/ML VIAL IM ONE (12:00)
[2019-07-29 12:24] LABS: BASOPHILS % (AUTO) 0.5 % (0.0-2.0); EOSINOPHILS % (AUTO) 1.1 % (1.0-6.0); HEMATOCRIT 32.7 % (36-46); LYMPHOCYTES # (AUTO) 2.3 K/uL (1.0-4.8); LYMPHOCYTES % (AUTO) 20.6 % (22.0-44.0); MEAN CORPUSCULAR HEMOGLOBIN 30.4 pg (26.0-34.0); MEAN CORPUSCULAR HGB CONC 33.5 G/dL (31.0-37.0); MEAN CORPUSCULAR VOLUME 91 fL (80-100); MONOCYTES # (AUTO) 0.8 K/uL (0.1-1.0); NEUTROPHILS # (AUTO) 7.9 K/uL (1.8-7.7); NEUTROPHILS % (AUTO) 70.8 % (40.0-70.0); PLATELET COUNT (AUTO) 270 K/uL (150-450); RED BLOOD CELL COUNT(AUTO) 3.61 MIL/uL (4.00-5.20); RED CELL DISTRIBUTION WIDTH 14.7 % (11.5-14.5)
[2019-07-29 12:40] LABS: AMPHET/METH SCREEN,URINE POSITIVE (NEGATIVE); BARBITURATE SCREEN, URINE NEGATIVE (NEGATIVE); BENZODIAZEPINES SCREEN,URINE NEGATIVE (NEGATIVE); CANNABINOID SCREEN,URINE NEGATIVE (NEGATIVE); COCAINE SCREEN,URINE NEGATIVE (NEGATIVE); METHADONE SCREEN, URINE NEGATIVE (NEGATIVE); OPIATE SCREEN,URINE NEGATIVE (NEGATIVE); PHENCYCLIDINE SCREEN,URINE NEGATIVE (NEGATIVE)
[2019-07-29 12:53] LABS: ALANINE AMINOTRANSFERASE 51 U/L (12-78); ALBUMIN 3.4 g/dL (3.4-5.0); ALKALINE PHOSPHATASE 109 U/L (46-116); ANION GAP 10 mmol/L (8-16); ASPARTATE AMINOTRANSFERASE 49 U/L (15-37); BILIRUBIN,TOTAL 0.4 mg/dL (0.1-1.0); CARBON DIOXIDE 24 mmol/L (22-29); CHLORIDE 105 mmol/L (98-107); CREATININE 0.84 mg/dL (0.60-1.30); GLOMERULAR FILTR. RATE CALC > 60 mL/min (>60); GLUCOSE,RANDOM 189 mg/dL (70-110); POTASSIUM 3.7 mmol/L (3.5-5.1); SODIUM SERUM 139 mmol/L (136-145); TOTAL PROTEIN, SERUM 7.1 g/dL (6.4-8.2); UREA NITROGEN, BLOOD 16 mg/dL (7-18)
[2019-07-29 12:54] LABS: VALPROIC ACID < 3 mcg/mL (50-100)
[2019-07-29 13:04] LABS: CALCIUM, TOTAL 8.4 mg/dL (8.8-10.5)
[2019-07-29] MEDS ORDERED: ZOLPIDEM TARTRATE 10 MG TABLET PO PRN (17:30)
[2019-07-29 19:40] VITALS: BP 160/76
[2019-07-29 23:21] LABS: GLUCOMETER DEV NAME(LOC) BV3S.; GLUCOSE,POINT OF CARE 306 MG/DL (70-110)
[2019-07-30] MEDS: MetFORMIN HCL 500 MG TABLET PO SCH ×2 (06:50→17:00)
[2019-07-30] MEDS ORDERED: ONDANSETRON HCL 4 MG TABLET PO PRN (08:15)
[2019-07-30] MEDS ORDERED: ALBUTEROL SULFATE HFA 90 MCG/PUFF 8 GM INHALER IH PRN (08:15)
[2019-07-30] MEDS ORDERED: MAG HYDROX/AL HYDROX/SIMETH ES 30 ML SUSPENSION UDCUP PO PRN (08:15)
[2019-07-30] MEDS ORDERED: BACITRACIN 28.4 GM OINTMENT TP PRN (08:15)
[2019-07-30] MEDS ORDERED: OMEPRAZOLE 20 MG CAPSULE PO PRN (08:15)
[2019-07-30] MEDS ORDERED: BENZOCAINE/MENTHOL LOZENGE MM PRN (08:15)
[2019-07-30] MEDS ORDERED: LOPERAMIDE HCL 2 MG CAPSULE PO PRN (08:15)
[2019-07-30] MEDS ORDERED: CloNIDine HCL 0.1 MG TABLET PO PRN (08:15)
[2019-07-30] MEDS ORDERED: DOCUSATE SODIUM 100 MG CAPSULE PO PRN (08:15)
[2019-07-30] MEDS ORDERED: PETROLATUM,WHITE 28 GM JELLY TP PRN (08:15)
[2019-07-30 08:25] VITALS: BP 113/71
[2019-07-30] MEDS: DOCUSATE SODIUM 100 MG CAPSULE PO SCH ×2 (09:00→10:58)
[2019-07-30] MEDS: OMEPRAZOLE 20 MG CAPSULE PO SCH (09:00)
[2019-07-30] MEDS: ATORVASTATIN CALCIUM 10 MG TABLET PO SCH ×2 (09:00→10:59)
[2019-07-30] MEDS: LURASIDONE HCL 40 MG TABLET PO SCH (17:00)
[2019-07-30] MEDS: DIVALPROEX SODIUM 500 MG DR TABLET PO SCH (17:33)
[2019-07-30] MEDS: LORazepam 2 MG TABLET PO PRN (18:00)
[2019-07-30 18:05] VITALS: BP 128/86
[2019-07-30] MEDS: ACETAMINOPHEN 325 MG TABLET PO PRN ×2 (18:05→22:26)
[2019-07-30] MEDS: TraZODone HCL 50 MG TABLET PO SCH (21:40)
[2019-07-30 22:26] VITALS: BP 118/74
[2019-07-31] MEDS: MetFORMIN HCL 500 MG TABLET PO SCH ×2 (06:50→17:00)
[2019-07-31] MEDS: LURASIDONE HCL 40 MG TABLET PO SCH ×2 (06:50→17:06)
[2019-07-31 08:26] VITALS: BP 119/76
[2019-07-31] MEDS: DIVALPROEX SODIUM 500 MG DR TABLET PO SCH ×2 (08:50→20:46)
[2019-07-31] MEDS: OMEPRAZOLE 20 MG CAPSULE PO SCH (08:50)
[2019-07-31] MEDS: ATORVASTATIN CALCIUM 10 MG TABLET PO SCH (08:50)
[2019-07-31] MEDS: DOCUSATE SODIUM 100 MG CAPSULE PO SCH (08:50)
[2019-07-31] MEDS: ACETAMINOPHEN 325 MG TABLET PO PRN ×2 (11:58→17:06)
[2019-07-31] MEDS: LORazepam 2 MG TABLET PO PRN ×2 (11:58→17:06)
[2019-07-31 16:12] VITALS: BP 142/71
[2019-07-31 16:22] LABS: GLUCOMETER DEV NAME(LOC) BV3S.; GLUCOSE,POINT OF CARE 135 MG/DL (70-110)
[2019-07-31 17:06] VITALS: BP 142/71
[2019-07-31] MEDS: TraZODone HCL 50 MG TABLET PO SCH (20:46)
[2019-07-31 21:18] LABS: GLUCOMETER DEV NAME(LOC) BV3S.; GLUCOSE,POINT OF CARE 166 MG/DL (70-110)
[2019-08-01] MEDS: LORazepam 2 MG TABLET PO PRN ×2 (04:02→09:09)
[2019-08-01] MEDS: ACETAMINOPHEN 325 MG TABLET PO PRN (04:02)
[2019-08-01] MEDS: MetFORMIN HCL 500 MG TABLET PO SCH ×2 (06:44→17:11)
[2019-08-01] MEDS: LURASIDONE HCL 40 MG TABLET PO SCH ×2 (06:44→17:11)
[2019-08-01] MEDS: OMEPRAZOLE 20 MG CAPSULE PO SCH (09:00)
[2019-08-01] MEDS: DOCUSATE SODIUM 100 MG CAPSULE PO SCH (09:06)
[2019-08-01] MEDS: DIVALPROEX SODIUM 500 MG DR TABLET PO SCH ×2 (09:06→17:11)
[2019-08-01] MEDS: ATORVASTATIN CALCIUM 10 MG TABLET PO SCH (09:07)
[2019-08-01] MEDS ORDERED: LORazepam 2 MG/ML VIAL ONE (14:33)
[2019-08-01] MEDS ORDERED: HALOPERIDOL LACTATE 5 MG/ML VIAL ONE (14:34)
[2019-08-01] MEDS ORDERED: LORazepam 2 MG/ML VIAL IM ONE (14:45)
[2019-08-01] MEDS ORDERED: HALOPERIDOL LACTATE 5 MG/ML VIAL IM ONE (14:45)
[2019-08-01 16:07] VITALS: BP 137/92
[2019-08-01 17:04] LABS: GLUCOMETER DEV NAME(LOC) BV3S.; GLUCOSE,POINT OF CARE 157 MG/DL (70-110)
[2019-08-01] MEDS: TraZODone HCL 50 MG TABLET PO SCH (20:13)
[2019-08-02] MEDS: MetFORMIN HCL 500 MG TABLET PO SCH ×2 (06:30→16:40)
[2019-08-02] MEDS: LURASIDONE HCL 40 MG TABLET PO SCH ×2 (06:46→16:44)
[2019-08-02] MEDS: ATORVASTATIN CALCIUM 10 MG TABLET PO SCH (09:00)
[2019-08-02] MEDS: OMEPRAZOLE 20 MG CAPSULE PO SCH (09:00)
[2019-08-02] MEDS: DOCUSATE SODIUM 100 MG CAPSULE PO SCH (09:31)
[2019-08-02] MEDS: DIVALPROEX SODIUM 500 MG DR TABLET PO SCH ×2 (09:31→16:40)
[2019-08-02] MEDS: LORazepam 2 MG TABLET PO PRN ×2 (09:32→18:58)
[2019-08-02] MEDS: ACETAMINOPHEN 325 MG TABLET PO PRN (18:58)
[2019-08-02] MEDS: TraZODone HCL 50 MG TABLET PO SCH (20:28)
[2019-08-03] MEDS: MetFORMIN HCL 500 MG TABLET PO SCH ×2 (07:00→17:11)
[2019-08-03] MEDS: LURASIDONE HCL 40 MG TABLET PO SCH ×2 (07:01→17:11)
[2019-08-03] MEDS: DOCUSATE SODIUM 100 MG CAPSULE PO SCH (08:19)
[2019-08-03] MEDS: ATORVASTATIN CALCIUM 10 MG TABLET PO SCH (08:19)
[2019-08-03] MEDS: DIVALPROEX SODIUM 500 MG DR TABLET PO SCH ×2 (08:20→17:11)
[2019-08-03] MEDS: OMEPRAZOLE 20 MG CAPSULE PO SCH (08:20)
[2019-08-03] MEDS: LORazepam 2 MG TABLET PO PRN ×2 (10:06→16:25)
[2019-08-03 16:00] VITALS: BP 109/62
[2019-08-03 17:40] LABS: GLUCOMETER DEV NAME(LOC) BV3S.; GLUCOSE,POINT OF CARE 157 MG/DL (70-110)
[2019-08-03] MEDS: TraZODone HCL 50 MG TABLET PO SCH (20:52)
[2019-08-04] MEDS: LURASIDONE HCL 40 MG TABLET PO SCH ×2 (06:43→16:07)
[2019-08-04] MEDS: MetFORMIN HCL 500 MG TABLET PO SCH ×2 (06:43→16:08)
[2019-08-04] MEDS: OMEPRAZOLE 20 MG CAPSULE PO SCH (09:00)
[2019-08-04] MEDS: LORazepam 2 MG TABLET PO PRN ×3 (09:07→20:51)
[2019-08-04] MEDS: ATORVASTATIN CALCIUM 10 MG TABLET PO SCH (09:07)
[2019-08-04] MEDS: DOCUSATE SODIUM 100 MG CAPSULE PO SCH (09:07)
[2019-08-04] MEDS: DIVALPROEX SODIUM 500 MG DR TABLET PO SCH ×2 (09:07→16:07)
[2019-08-04 16:18] LABS: GLUCOMETER DEV NAME(LOC) BV3S.; GLUCOSE,POINT OF CARE 153 MG/DL (70-110)
[2019-08-04 16:38] VITALS: BP 118/72
[2019-08-04] MEDS: TraZODone HCL 50 MG TABLET PO SCH (20:51)
[2019-08-04] MEDS: ACETAMINOPHEN 325 MG TABLET PO PRN (20:52)
[2019-08-04 21:07] LABS: GLUCOMETER DEV NAME(LOC) BV3S.; GLUCOSE,POINT OF CARE 134 MG/DL (70-110)
[2019-08-05 06:29] VITALS: BP 98/60
[2019-08-05] MEDS: LURASIDONE HCL 60 MG TABLET PO SCH ×2 (06:30→16:17)
[2019-08-05] MEDS: MetFORMIN HCL 500 MG TABLET PO SCH ×2 (06:31→16:17)
[2019-08-05 06:56] LABS: GLUCOMETER DEV NAME(LOC) BV3S.; GLUCOSE,POINT OF CARE 148 MG/DL (70-110)
[2019-08-05] MEDS: ATORVASTATIN CALCIUM 10 MG TABLET PO SCH (08:16)
[2019-08-05] MEDS: OMEPRAZOLE 20 MG CAPSULE PO SCH (08:16)
[2019-08-05] MEDS: LORazepam 2 MG TABLET PO PRN ×2 (08:16→16:17)
[2019-08-05] MEDS: DOCUSATE SODIUM 100 MG CAPSULE PO SCH (08:16)
[2019-08-05] MEDS: DIVALPROEX SODIUM 500 MG DR TABLET PO SCH ×2 (08:16→16:17)
[2019-08-05] MEDS: MULTIVITAMINS WITH IRON TABLET PO SCH (08:16)
[2019-08-05 08:19] VITALS: BP 100/65
[2019-08-05] MEDS: ACETAMINOPHEN 325 MG TABLET PO PRN ×2 (08:22→16:23)
[2019-08-05 16:29] LABS: GLUCOMETER DEV NAME(LOC) BV3S.; GLUCOSE,POINT OF CARE 174 MG/DL (70-110)
[2019-08-05 16:34] VITALS: BP 106/69
[2019-08-05] MEDS: CEPHALEXIN MONOHYDRATE 500 MG CAPSULE PO SCH (17:00)
[2019-08-05 17:15] VITALS: BP 138/70
[2019-08-05] MEDS: TraZODone HCL 50 MG TABLET PO SCH (20:21)
[2019-08-05 20:32] LABS: GLUCOMETER DEV NAME(LOC) BV3S.; GLUCOSE,POINT OF CARE 160 MG/DL (70-110)
[2019-08-06] MEDS: MetFORMIN HCL 500 MG TABLET PO SCH ×2 (06:20→16:14)
[2019-08-06] MEDS: LURASIDONE HCL 60 MG TABLET PO SCH ×2 (06:20→16:45)
[2019-08-06 08:22] VITALS: BP 101/53
[2019-08-06] MEDS: OMEPRAZOLE 20 MG CAPSULE PO SCH (08:52)
[2019-08-06] MEDS: CEPHALEXIN MONOHYDRATE 500 MG CAPSULE PO SCH ×2 (08:52→16:45)
[2019-08-06] MEDS: ATORVASTATIN CALCIUM 10 MG TABLET PO SCH (08:52)
[2019-08-06] MEDS: DIVALPROEX SODIUM 500 MG DR TABLET PO SCH ×2 (08:52→16:13)
[2019-08-06] MEDS: DOCUSATE SODIUM 100 MG CAPSULE PO SCH (08:52)
[2019-08-06] MEDS: MULTIVITAMINS WITH IRON TABLET PO SCH (08:52)
[2019-08-06 08:55] VITALS: BP 110/70
[2019-08-06] MEDS: ACETAMINOPHEN 325 MG TABLET PO PRN (08:55)
[2019-08-06] MEDS: LORazepam 2 MG TABLET PO PRN ×2 (09:02→14:25)
[2019-08-06 12:23] LABS: GLUCOMETER DEV NAME(LOC) BV3S.; GLUCOSE,POINT OF CARE 166 MG/DL (70-110)
[2019-08-06] MEDS ORDERED: LORazepam 2 MG/ML VIAL ONE (15:32)
[2019-08-06] MEDS ORDERED: HALOPERIDOL LACTATE 5 MG/ML VIAL ONE (15:33)
[2019-08-06] MEDS ORDERED: DiphenhydrAMINE HCL 50 MG/ML VIAL ONE (15:33)
[2019-08-06] MEDS ORDERED: LORazepam 2 MG/ML VIAL IM ONE (16:00)
[2019-08-06] MEDS ORDERED: DiphenhydrAMINE HCL 50 MG/ML VIAL IM ONE (16:00)
[2019-08-06] MEDS ORDERED: HALOPERIDOL LACTATE 5 MG/ML VIAL IM ONE (16:00)
[2019-08-06 16:14] VITALS: BP 103/66
[2019-08-06] MEDS: TraZODone HCL 50 MG TABLET PO SCH (20:48)
[2019-08-07 05:59] VITALS: BP 118/68
[2019-08-07] MEDS: MetFORMIN HCL 500 MG TABLET PO SCH ×2 (06:14→15:57)
[2019-08-07] MEDS: LURASIDONE HCL 60 MG TABLET PO SCH ×2 (06:14→15:56)
[2019-08-07 06:29] LABS: GLUCOMETER DEV NAME(LOC) BV3S.; GLUCOSE,POINT OF CARE 112 MG/DL (70-110)
[2019-08-07] MEDS: MULTIVITAMINS WITH IRON TABLET PO SCH (08:47)
[2019-08-07] MEDS: LORazepam 2 MG TABLET PO PRN ×3 (08:47→15:56)
[2019-08-07] MEDS: DOCUSATE SODIUM 100 MG CAPSULE PO SCH (08:47)
[2019-08-07] MEDS: ATORVASTATIN CALCIUM 10 MG TABLET PO SCH (08:47)
[2019-08-07] MEDS: CEPHALEXIN MONOHYDRATE 500 MG CAPSULE PO SCH ×2 (08:47→15:56)
[2019-08-07] MEDS: DIVALPROEX SODIUM 500 MG DR TABLET PO SCH ×2 (08:47→15:56)
[2019-08-07] MEDS: OMEPRAZOLE 20 MG CAPSULE PO SCH (08:48)
[2019-08-07 11:30] LABS: GLUCOMETER DEV NAME(LOC) BV3S.; GLUCOSE,POINT OF CARE 182 MG/DL (70-110)
[2019-08-07] MEDS: HALOPERIDOL 5 MG TABLET PO PRN (12:46)
[2019-08-07 16:03] LABS: GLUCOMETER DEV NAME(LOC) BV3S.; GLUCOSE,POINT OF CARE 143 MG/DL (70-110)
[2019-08-07 18:06] VITALS: BP 109/47
[2019-08-07 20:01] LABS: GLUCOMETER DEV NAME(LOC) BV3S.; GLUCOSE,POINT OF CARE 123 MG/DL (70-110)
[2019-08-07] MEDS: TraZODone HCL 50 MG TABLET PO SCH (20:10)
[2019-08-08 06:37] LABS: GLUCOMETER DEV NAME(LOC) BV3S.; GLUCOSE,POINT OF CARE 110 MG/DL (70-110)
[2019-08-08] MEDS: MetFORMIN HCL 500 MG TABLET PO SCH ×2 (06:45→16:33)
[2019-08-08] MEDS: LURASIDONE HCL 60 MG TABLET PO SCH ×2 (06:45→16:33)
[2019-08-08] MEDS: OMEPRAZOLE 20 MG CAPSULE PO SCH (09:00)
[2019-08-08] MEDS: DIVALPROEX SODIUM 500 MG DR TABLET PO SCH ×2 (09:04→16:33)
[2019-08-08] MEDS: MULTIVITAMINS WITH IRON TABLET PO SCH (09:04)
[2019-08-08] MEDS: LORazepam 2 MG TABLET PO PRN ×2 (09:05→16:35)
[2019-08-08] MEDS: DOCUSATE SODIUM 100 MG CAPSULE PO SCH (09:05)
[2019-08-08] MEDS: ATORVASTATIN CALCIUM 10 MG TABLET PO SCH (09:05)
[2019-08-08] MEDS: CEPHALEXIN MONOHYDRATE 500 MG CAPSULE PO SCH ×2 (09:05→16:33)
[2019-08-08 11:22] LABS: GLUCOMETER DEV NAME(LOC) BV3S.; GLUCOSE,POINT OF CARE 122 MG/DL (70-110)
[2019-08-08 16:00] VITALS: BP 111/64
[2019-08-08 16:29] LABS: GLUCOMETER DEV NAME(LOC) BV3S.; GLUCOSE,POINT OF CARE 161 MG/DL (70-110)
[2019-08-08] MEDS: IBUPROFEN 600 MG TABLET PO PRN (16:34)
[2019-08-08] MEDS: TraZODone HCL 50 MG TABLET PO SCH (21:23)
[2019-08-09 05:27] VITALS: BP 117/80
[2019-08-09] MEDS: MetFORMIN HCL 500 MG TABLET PO SCH ×2 (06:35→16:14)
[2019-08-09] MEDS: LURASIDONE HCL 60 MG TABLET PO SCH ×2 (06:35→16:14)
[2019-08-09 06:41] LABS: GLUCOMETER DEV NAME(LOC) BV3S.; GLUCOSE,POINT OF CARE 95 MG/DL (70-110)
[2019-08-09 08:24] VITALS: BP 106/62
[2019-08-09] MEDS: OMEPRAZOLE 20 MG CAPSULE PO SCH (09:00)
[2019-08-09] MEDS: CEPHALEXIN MONOHYDRATE 500 MG CAPSULE PO SCH ×2 (09:45→17:19)
[2019-08-09] MEDS: MULTIVITAMINS WITH IRON TABLET PO SCH (09:45)
[2019-08-09] MEDS: ATORVASTATIN CALCIUM 10 MG TABLET PO SCH (09:45)
[2019-08-09] MEDS: DIVALPROEX SODIUM 500 MG DR TABLET PO SCH ×2 (09:45→16:14)
[2019-08-09] MEDS: DOCUSATE SODIUM 100 MG CAPSULE PO SCH (09:45)
[2019-08-09] MEDS: LORazepam 2 MG TABLET PO PRN ×2 (09:46→16:14)
[2019-08-09 12:28] LABS: GLUCOMETER DEV NAME(LOC) BV3S.; GLUCOSE,POINT OF CARE 170 MG/DL (70-110)
[2019-08-09 16:42] VITALS: BP 130/75
[2019-08-09] MEDS: TraZODone HCL 50 MG TABLET PO SCH (20:42)
[2019-08-10] MEDS: LURASIDONE HCL 60 MG TABLET PO SCH ×2 (06:48→16:07)
[2019-08-10] MEDS: MetFORMIN HCL 500 MG TABLET PO SCH ×2 (06:49→16:07)
[2019-08-10 07:07] LABS: GLUCOMETER DEV NAME(LOC) BV3S.; GLUCOSE,POINT OF CARE 123 MG/DL (70-110)
[2019-08-10 08:19] VITALS: BP 119/73
[2019-08-10] MEDS: OMEPRAZOLE 20 MG CAPSULE PO SCH (09:00)
[2019-08-10] MEDS: DOCUSATE SODIUM 100 MG CAPSULE PO SCH (09:03)
[2019-08-10] MEDS: DIVALPROEX SODIUM 500 MG DR TABLET PO SCH ×2 (09:03→16:07)
[2019-08-10] MEDS: ATORVASTATIN CALCIUM 10 MG TABLET PO SCH (09:03)
[2019-08-10] MEDS: CEPHALEXIN MONOHYDRATE 500 MG CAPSULE PO SCH ×2 (09:03→16:07)
[2019-08-10] MEDS: MULTIVITAMINS WITH IRON TABLET PO SCH (09:03)
[2019-08-10] MEDS: LORazepam 2 MG TABLET PO PRN ×2 (09:03→20:56)
[2019-08-10] MEDS: ACETAMINOPHEN 325 MG TABLET PO PRN ×2 (09:14→20:56)
[2019-08-10 12:04] LABS: GLUCOMETER DEV NAME(LOC) BV3S.; GLUCOSE,POINT OF CARE 114 MG/DL (70-110)
[2019-08-10] MEDS: IBUPROFEN 600 MG TABLET PO PRN (12:31)
[2019-08-10 16:32] VITALS: BP 141/72
[2019-08-10 16:33] LABS: GLUCOMETER DEV NAME(LOC) BV3S.; GLUCOSE,POINT OF CARE 130 MG/DL (70-110)
[2019-08-10] MEDS: TraZODone HCL 50 MG TABLET PO SCH (20:04)
[2019-08-10 20:15] LABS: GLUCOMETER DEV NAME(LOC) BV3S.; GLUCOSE,POINT OF CARE 114 MG/DL (70-110)
[2019-08-10 20:56] VITALS: BP 134/80
[2019-08-11] MEDS: LURASIDONE HCL 60 MG TABLET PO SCH ×2 (06:43→16:01)
[2019-08-11] MEDS: MetFORMIN HCL 500 MG TABLET PO SCH ×2 (06:43→16:01)
[2019-08-11 07:01] LABS: GLUCOMETER DEV NAME(LOC) BV3S.; GLUCOSE,POINT OF CARE 84 MG/DL (70-110)
[2019-08-11 08:20] VITALS: BP 103/69
[2019-08-11] MEDS: OMEPRAZOLE 20 MG CAPSULE PO SCH (09:00)
[2019-08-11] MEDS: ATORVASTATIN CALCIUM 10 MG TABLET PO SCH (09:03)
[2019-08-11] MEDS: DOCUSATE SODIUM 100 MG CAPSULE PO SCH (09:03)
[2019-08-11] MEDS: MULTIVITAMINS WITH IRON TABLET PO SCH (09:03)
[2019-08-11] MEDS: DIVALPROEX SODIUM 500 MG DR TABLET PO SCH ×2 (09:03→16:01)
[2019-08-11] MEDS: LORazepam 2 MG TABLET PO PRN ×3 (09:04→17:50)
[2019-08-11] MEDS: CEPHALEXIN MONOHYDRATE 500 MG CAPSULE PO SCH ×2 (09:04→16:01)
[2019-08-11] MEDS: ACETAMINOPHEN 325 MG TABLET PO PRN (09:08)
[2019-08-11 13:15] LABS: GLUCOMETER DEV NAME(LOC) BV3S.; GLUCOSE,POINT OF CARE 128 MG/DL (70-110)
[2019-08-11 16:25] LABS: GLUCOMETER DEV NAME(LOC) BV3S.; GLUCOSE,POINT OF CARE 176 MG/DL (70-110)
[2019-08-11 16:33] VITALS: BP 115/59
[2019-08-11] MEDS: TraZODone HCL 50 MG TABLET PO SCH (21:00)
[2019-08-12] MEDS: LURASIDONE HCL 60 MG TABLET PO SCH ×2 (06:45→16:59)
[2019-08-12] MEDS: MetFORMIN HCL 500 MG TABLET PO SCH ×2 (06:45→16:59)
[2019-08-12 07:00] LABS: GLUCOMETER DEV NAME(LOC) BV3S.; GLUCOSE,POINT OF CARE 107 MG/DL (70-110)
[2019-08-12] MEDS: MULTIVITAMINS WITH IRON TABLET PO SCH (09:16)
[2019-08-12] MEDS: DOCUSATE SODIUM 100 MG CAPSULE PO SCH (09:16)
[2019-08-12] MEDS: OMEPRAZOLE 20 MG CAPSULE PO SCH (09:16)
[2019-08-12] MEDS: CEPHALEXIN MONOHYDRATE 500 MG CAPSULE PO SCH (09:17)
[2019-08-12] MEDS: ATORVASTATIN CALCIUM 10 MG TABLET PO SCH (09:17)
[2019-08-12] MEDS: DIVALPROEX SODIUM 500 MG DR TABLET PO SCH ×2 (09:17→16:59)
[2019-08-12 09:44] LABS: GLUCOMETER DEV NAME(LOC) BV3S.; GLUCOSE,POINT OF CARE 114 MG/DL (70-110)
[2019-08-12] MEDS: LORazepam 2 MG TABLET PO PRN (16:14)
[2019-08-12 17:56] VITALS: BP 120/64
[2019-08-12 18:42] LABS: GLUCOMETER DEV NAME(LOC) BV3S.; GLUCOSE,POINT OF CARE 173 MG/DL (70-110)
[2019-08-12] MEDS: IBUPROFEN 600 MG TABLET PO PRN (18:42)
[2019-08-12] MEDS: TraZODone HCL 50 MG TABLET PO SCH (20:13)
[2019-08-13] MEDS: MetFORMIN HCL 500 MG TABLET PO SCH ×2 (06:25→16:12)
[2019-08-13] MEDS: LURASIDONE HCL 60 MG TABLET PO SCH ×2 (06:26→16:12)
[2019-08-13] MEDS: ACETAMINOPHEN 325 MG TABLET PO PRN (06:49)
[2019-08-13] MEDS: LORazepam 2 MG TABLET PO PRN ×3 (06:49→19:11)
[2019-08-13 06:50] VITALS: BP 119/76
[2019-08-13 06:53] LABS: GLUCOMETER DEV NAME(LOC) BV3S.; GLUCOSE,POINT OF CARE 102 MG/DL (70-110)
[2019-08-13] MEDS: OMEPRAZOLE 20 MG CAPSULE PO SCH (09:00)
[2019-08-13] MEDS: MULTIVITAMINS WITH IRON TABLET PO SCH (09:26)
[2019-08-13] MEDS: ATORVASTATIN CALCIUM 10 MG TABLET PO SCH (09:26)
[2019-08-13] MEDS: DIVALPROEX SODIUM 500 MG DR TABLET PO SCH ×2 (09:29→16:12)
[2019-08-13] MEDS: DOCUSATE SODIUM 100 MG CAPSULE PO SCH (09:31)
[2019-08-13 11:53] LABS: GLUCOMETER DEV NAME(LOC) BV3S.; GLUCOSE,POINT OF CARE 94 MG/DL (70-110)
[2019-08-13 12:29] VITALS: BP 116/84
[2019-08-13] MEDS: IBUPROFEN 600 MG TABLET PO PRN ×2 (12:29→19:11)
[2019-08-13 16:04] VITALS: BP 123/67
[2019-08-13 16:39] LABS: GLUCOMETER DEV NAME(LOC) BV3S.; GLUCOSE,POINT OF CARE 143 MG/DL (70-110)
[2019-08-13] MEDS: TraZODone HCL 50 MG TABLET PO SCH (20:16)
[2019-08-13 20:25] LABS: GLUCOMETER DEV NAME(LOC) BV3S.; GLUCOSE,POINT OF CARE 131 MG/DL (70-110)
[2019-08-14 02:15] VITALS: BP 114/67
[2019-08-14] MEDS: LURASIDONE HCL 60 MG TABLET PO SCH ×2 (07:02→16:13)
[2019-08-14] MEDS: MetFORMIN HCL 500 MG TABLET PO SCH ×2 (07:02→16:13)
[2019-08-14 07:06] LABS: GLUCOMETER DEV NAME(LOC) BV3S.; GLUCOSE,POINT OF CARE 86 MG/DL (70-110)
[2019-08-14] MEDS: DOCUSATE SODIUM 100 MG CAPSULE PO SCH (08:35)
[2019-08-14] MEDS: ATORVASTATIN CALCIUM 10 MG TABLET PO SCH (08:35)
[2019-08-14] MEDS: DIVALPROEX SODIUM 500 MG DR TABLET PO SCH ×2 (08:35→16:14)
[2019-08-14] MEDS: LORazepam 2 MG TABLET PO PRN ×2 (08:37→17:50)
[2019-08-14 08:44] VITALS: BP 116/74
[2019-08-14] MEDS: IBUPROFEN 600 MG TABLET PO PRN ×2 (08:44→17:50)
[2019-08-14] MEDS: OMEPRAZOLE 20 MG CAPSULE PO SCH (08:47)
[2019-08-14] MEDS: MULTIVITAMINS WITH IRON TABLET PO SCH (09:16)
[2019-08-14 11:11] LABS: GLUCOMETER DEV NAME(LOC) BV3S.; GLUCOSE,POINT OF CARE 111 MG/DL (70-110)
[2019-08-14 16:17] VITALS: BP 112/68
[2019-08-14 16:24] LABS: GLUCOMETER DEV NAME(LOC) BV3S.; GLUCOSE,POINT OF CARE 125 MG/DL (70-110)
[2019-08-14] MEDS: TraZODone HCL 50 MG TABLET PO SCH (20:01)
[2019-08-14 20:06] LABS: GLUCOMETER DEV NAME(LOC) BV3S.; GLUCOSE,POINT OF CARE 108 MG/DL (70-110)
[2019-08-15 04:48] VITALS: BP 107/70
[2019-08-15] MEDS: MetFORMIN HCL 500 MG TABLET PO SCH ×2 (06:08→15:57)
[2019-08-15] MEDS: LURASIDONE HCL 60 MG TABLET PO SCH ×2 (06:08→15:57)
[2019-08-15 06:18] LABS: GLUCOMETER DEV NAME(LOC) BV3S.; GLUCOSE,POINT OF CARE 111 MG/DL (70-110)
[2019-08-15 08:19] VITALS: BP 110/72
[2019-08-15] MEDS: DIVALPROEX SODIUM 500 MG DR TABLET PO SCH ×2 (08:57→15:57)
[2019-08-15] MEDS: DOCUSATE SODIUM 100 MG CAPSULE PO SCH (08:57)
[2019-08-15] MEDS: ATORVASTATIN CALCIUM 10 MG TABLET PO SCH (08:57)
[2019-08-15] MEDS: MULTIVITAMINS WITH IRON TABLET PO SCH (08:57)
[2019-08-15] MEDS: OMEPRAZOLE 20 MG CAPSULE PO SCH (08:58)
[2019-08-15] MEDS: IBUPROFEN 600 MG TABLET PO PRN ×2 (09:29→20:15)
[2019-08-15] MEDS: LORazepam 2 MG TABLET PO PRN ×3 (09:30→20:15)
[2019-08-15 11:03] LABS: GLUCOMETER DEV NAME(LOC) BV3S.; GLUCOSE,POINT OF CARE 148 MG/DL (70-110)
[2019-08-15] MEDS: SERTRALINE HCL 50 MG TABLET PO SCH (12:24)
[2019-08-15 16:08] LABS: GLUCOMETER DEV NAME(LOC) BV3S.; GLUCOSE,POINT OF CARE 148 MG/DL (70-110)
[2019-08-15 16:55] VITALS: BP 114/90
[2019-08-15] MEDS: TraZODone HCL 50 MG TABLET PO SCH (20:15)
[2019-08-15 20:24] LABS: GLUCOMETER DEV NAME(LOC) BV3S.; GLUCOSE,POINT OF CARE 118 MG/DL (70-110)
[2019-08-16 04:56] VITALS: BP 106/73
[2019-08-16] MEDS: LURASIDONE HCL 60 MG TABLET PO SCH ×2 (06:36→16:31)
[2019-08-16] MEDS: MetFORMIN HCL 500 MG TABLET PO SCH ×2 (06:36→16:32)
[2019-08-16 06:55] LABS: GLUCOMETER DEV NAME(LOC) BV3S.; GLUCOSE,POINT OF CARE 97 MG/DL (70-110)
[2019-08-16 08:11] VITALS: BP 137/80
[2019-08-16] MEDS: SERTRALINE HCL 50 MG TABLET PO SCH (08:34)
[2019-08-16] MEDS: DIVALPROEX SODIUM 500 MG DR TABLET PO SCH ×2 (08:34→16:32)
[2019-08-16] MEDS: MULTIVITAMINS WITH IRON TABLET PO SCH (08:34)
[2019-08-16] MEDS: OMEPRAZOLE 20 MG CAPSULE PO SCH (08:35)
[2019-08-16] MEDS: ATORVASTATIN CALCIUM 10 MG TABLET PO SCH (08:35)
[2019-08-16] MEDS: DOCUSATE SODIUM 100 MG CAPSULE PO SCH (08:35)
[2019-08-16 13:13] LABS: GLUCOMETER DEV NAME(LOC) BV3S.; GLUCOSE,POINT OF CARE 135 MG/DL (70-110)
[2019-08-16 16:12] VITALS: BP 128/67
[2019-08-16 16:48] LABS: GLUCOMETER DEV NAME(LOC) BV3S.; GLUCOSE,POINT OF CARE 185 MG/DL (70-110)
[2019-08-16] MEDS: IBUPROFEN 600 MG TABLET PO PRN (18:13)
[2019-08-16] MEDS: HALOPERIDOL 5 MG TABLET PO PRN (18:14)
[2019-08-16 19:15] VITALS: BP 144/88
[2019-08-16] MEDS: TraZODone HCL 50 MG TABLET PO SCH (21:40)
[2019-08-16 21:49] LABS: GLUCOMETER DEV NAME(LOC) BV3S.; GLUCOSE,POINT OF CARE 108 MG/DL (70-110)
[2019-08-16 22:05] VITALS: BP 144/88
[2019-08-17 04:52] VITALS: BP 126/80
[2019-08-17] MEDS: IBUPROFEN 600 MG TABLET PO PRN ×2 (04:57→17:54)
[2019-08-17] MEDS: LURASIDONE HCL 60 MG TABLET PO SCH ×2 (06:34→16:09)
[2019-08-17] MEDS: MetFORMIN HCL 500 MG TABLET PO SCH ×2 (06:34→16:09)
[2019-08-17 06:36] LABS: GLUCOMETER DEV NAME(LOC) BV3S.; GLUCOSE,POINT OF CARE 89 MG/DL (70-110)
[2019-08-17 08:29] VITALS: BP 137/64
[2019-08-17] MEDS: ATORVASTATIN CALCIUM 10 MG TABLET PO SCH (08:31)
[2019-08-17] MEDS: DOCUSATE SODIUM 100 MG CAPSULE PO SCH (08:31)
[2019-08-17] MEDS: DIVALPROEX SODIUM 500 MG DR TABLET PO SCH ×2 (08:31→16:09)
[2019-08-17] MEDS: SERTRALINE HCL 50 MG TABLET PO SCH (08:31)
[2019-08-17] MEDS: OMEPRAZOLE 20 MG CAPSULE PO SCH (08:31)
[2019-08-17] MEDS: MULTIVITAMINS WITH IRON TABLET PO SCH (08:31)
[2019-08-17 11:46] LABS: GLUCOMETER DEV NAME(LOC) BV3S.; GLUCOSE,POINT OF CARE 123 MG/DL (70-110)
[2019-08-17 16:17] VITALS: BP 130/79
[2019-08-17 16:22] VITALS: BP 130/79
[2019-08-17] MEDS: HALOPERIDOL 5 MG TABLET PO PRN (17:53)
[2019-08-17] MEDS: TraZODone HCL 50 MG TABLET PO SCH (20:11)
[2019-08-17 20:27] LABS: GLUCOMETER DEV NAME(LOC) BV3S.; GLUCOSE,POINT OF CARE 112 MG/DL (70-110)
[2019-08-18 05:31] VITALS: BP 127/75
[2019-08-18 06:49] LABS: GLUCOMETER DEV NAME(LOC) BV3S.; GLUCOSE,POINT OF CARE 90 MG/DL (70-110)
[2019-08-18] MEDS: IBUPROFEN 600 MG TABLET PO PRN ×2 (07:09→09:14)
[2019-08-18] MEDS: MetFORMIN HCL 500 MG TABLET PO SCH ×2 (07:10→16:28)
[2019-08-18] MEDS: LURASIDONE HCL 60 MG TABLET PO SCH ×2 (07:10→21:09)
[2019-08-18 07:11] VITALS: BP 121/68
[2019-08-18 08:20] VITALS: BP 112/61
[2019-08-18] MEDS: OMEPRAZOLE 20 MG CAPSULE PO SCH (09:00)
[2019-08-18] MEDS: DIVALPROEX SODIUM 500 MG DR TABLET PO SCH ×2 (09:10→16:28)
[2019-08-18] MEDS: ATORVASTATIN CALCIUM 10 MG TABLET PO SCH (09:10)
[2019-08-18] MEDS: MULTIVITAMINS WITH IRON TABLET PO SCH (09:10)
[2019-08-18] MEDS: DOCUSATE SODIUM 100 MG CAPSULE PO SCH (09:10)
[2019-08-18] MEDS: SERTRALINE HCL 50 MG TABLET PO SCH (09:10)
[2019-08-18 12:30] LABS: GLUCOMETER DEV NAME(LOC) BV3S.; GLUCOSE,POINT OF CARE 83 MG/DL (70-110)
[2019-08-18 16:10] VITALS: BP 126/66
[2019-08-18 19:47] LABS: GLUCOMETER DEV NAME(LOC) BV3S.; GLUCOSE,POINT OF CARE 161 MG/DL (70-110)
[2019-08-18] MEDS: TraZODone HCL 50 MG TABLET PO SCH (20:31)
[2019-08-18] MEDS: HALOPERIDOL 5 MG TABLET PO PRN (21:10)
[2019-08-18] MEDS: MAGNESIUM HYDROXIDE SUSPENSION 30 ML UDCUP PO PRN (21:10)
[2019-08-18 23:40] LABS: GLUCOMETER DEV NAME(LOC) BV3S.; GLUCOSE,POINT OF CARE 98 MG/DL (70-110)
[2019-08-19] MEDS: IBUPROFEN 600 MG TABLET PO PRN ×3 (00:04→19:14)
[2019-08-19 02:55] VITALS: BP 117/65
[2019-08-19] MEDS: LURASIDONE HCL 60 MG TABLET PO SCH ×2 (06:34→21:11)
[2019-08-19] MEDS: MetFORMIN HCL 500 MG TABLET PO SCH ×2 (06:34→16:45)
[2019-08-19 06:39] LABS: GLUCOMETER DEV NAME(LOC) BV3S.; GLUCOSE,POINT OF CARE 85 MG/DL (70-110)
[2019-08-19 08:20] VITALS: BP 114/58
[2019-08-19] MEDS: DOCUSATE SODIUM 100 MG CAPSULE PO SCH (08:53)
[2019-08-19] MEDS: DIVALPROEX SODIUM 500 MG DR TABLET PO SCH ×2 (08:53→16:45)
[2019-08-19] MEDS: ATORVASTATIN CALCIUM 10 MG TABLET PO SCH (08:53)
[2019-08-19] MEDS: SERTRALINE HCL 50 MG TABLET PO SCH (08:53)
[2019-08-19] MEDS: MULTIVITAMINS WITH IRON TABLET PO SCH (08:53)
[2019-08-19] MEDS: OMEPRAZOLE 20 MG CAPSULE PO SCH (09:00)
[2019-08-19 11:11] LABS: GLUCOMETER DEV NAME(LOC) BV3S.; GLUCOSE,POINT OF CARE 113 MG/DL (70-110)
[2019-08-19 16:05] VITALS: BP 132/86
[2019-08-19 16:13] LABS: GLUCOMETER DEV NAME(LOC) BV3S.; GLUCOSE,POINT OF CARE 116 MG/DL (70-110)
[2019-08-19] MEDS: HALOPERIDOL 5 MG TABLET PO PRN (20:28)
[2019-08-19] MEDS: TraZODone HCL 50 MG TABLET PO SCH (20:28)
[2019-08-19 20:29] LABS: GLUCOMETER DEV NAME(LOC) BV3S.; GLUCOSE,POINT OF CARE 91 MG/DL (70-110)
[2019-08-20 05:01] VITALS: BP 124/78
[2019-08-20] MEDS: MetFORMIN HCL 500 MG TABLET PO SCH ×3 (06:06→17:00)
[2019-08-20] MEDS: LURASIDONE HCL 60 MG TABLET PO SCH ×2 (06:06→16:30)
[2019-08-20 06:23] LABS: GLUCOMETER DEV NAME(LOC) BV3S.; GLUCOSE,POINT OF CARE 89 MG/DL (70-110)
[2019-08-20 08:18] VITALS: BP 112/61
[2019-08-20] MEDS: OMEPRAZOLE 20 MG CAPSULE PO SCH (09:00)
[2019-08-20] MEDS: SERTRALINE HCL 50 MG TABLET PO SCH (09:48)
[2019-08-20] MEDS: DOCUSATE SODIUM 100 MG CAPSULE PO SCH (09:48)
[2019-08-20] MEDS: DIVALPROEX SODIUM 500 MG DR TABLET PO SCH ×2 (09:48→16:29)
[2019-08-20] MEDS: MULTIVITAMINS WITH IRON TABLET PO SCH (09:48)
[2019-08-20] MEDS: ATORVASTATIN CALCIUM 10 MG TABLET PO SCH (09:48)
[2019-08-20 11:13] LABS: GLUCOMETER DEV NAME(LOC) BV3S.; GLUCOSE,POINT OF CARE 88 MG/DL (70-110)
[2019-08-20 16:10] VITALS: BP 148/73
[2019-08-20 16:50] LABS: GLUCOMETER DEV NAME(LOC) BV3S.; GLUCOSE,POINT OF CARE 204 MG/DL (70-110)
[2019-08-20] MEDS: TraZODone HCL 50 MG TABLET PO SCH (20:11)
[2019-08-20 20:25] LABS: GLUCOMETER DEV NAME(LOC) BV3S.; GLUCOSE,POINT OF CARE 86 MG/DL (70-110)
[2019-08-21 00:05] VITALS: BP 128/79
[2019-08-21] MEDS: LURASIDONE HCL 60 MG TABLET PO SCH ×2 (06:18→16:22)
[2019-08-21] MEDS: MetFORMIN HCL 500 MG TABLET PO SCH ×2 (06:18→16:22)
[2019-08-21 06:36] LABS: GLUCOMETER DEV NAME(LOC) BV3S.; GLUCOSE,POINT OF CARE 89 MG/DL (70-110)
[2019-08-21] MEDS: SERTRALINE HCL 50 MG TABLET PO SCH ×2 (08:08→09:00)
[2019-08-21] MEDS: OMEPRAZOLE 20 MG CAPSULE PO SCH ×2 (08:08→09:00)
[2019-08-21] MEDS: DOCUSATE SODIUM 100 MG CAPSULE PO SCH ×2 (08:08→09:00)
[2019-08-21] MEDS: MULTIVITAMINS WITH IRON TABLET PO SCH ×2 (08:08→09:00)
[2019-08-21] MEDS: DIVALPROEX SODIUM 500 MG DR TABLET PO SCH ×3 (08:08→16:22)
[2019-08-21] MEDS: ATORVASTATIN CALCIUM 10 MG TABLET PO SCH ×2 (08:08→09:00)
[2019-08-21] MEDS: BENZTROPINE MESYLATE 1 MG TABLET PO SCH (16:22)
[2019-08-21 16:41] VITALS: BP 131/74
[2019-08-21 17:00] LABS: GLUCOMETER DEV NAME(LOC) BV3N.; GLUCOSE,POINT OF CARE 124 MG/DL (70-110)
[2019-08-21] MEDS: TraZODone HCL 50 MG TABLET PO SCH (20:38)
[2019-08-21 21:49] LABS: GLUCOMETER DEV NAME(LOC) BV3N.; GLUCOSE,POINT OF CARE 117 MG/DL (70-110)
[2019-08-22 03:25] VITALS: BP 137/80
[2019-08-22] MEDS: IBUPROFEN 600 MG TABLET PO PRN ×2 (03:28→15:17)
[2019-08-22] MEDS: HALOPERIDOL 5 MG TABLET PO PRN (04:50)
[2019-08-22 06:10] LABS: GLUCOMETER DEV NAME(LOC) BV3S.; GLUCOSE,POINT OF CARE 97 MG/DL (70-110)
[2019-08-22] MEDS: LURASIDONE HCL 60 MG TABLET PO SCH ×2 (06:35→16:11)
[2019-08-22] MEDS: MetFORMIN HCL 500 MG TABLET PO SCH ×2 (06:35→16:11)
[2019-08-22 08:17] VITALS: BP 115/64
[2019-08-22] MEDS: OMEPRAZOLE 20 MG CAPSULE PO SCH (09:00)
[2019-08-22] MEDS: MULTIVITAMINS WITH IRON TABLET PO SCH (09:20)
[2019-08-22] MEDS: DOCUSATE SODIUM 100 MG CAPSULE PO SCH (09:20)
[2019-08-22] MEDS: BENZTROPINE MESYLATE 1 MG TABLET PO SCH ×2 (09:20→16:11)
[2019-08-22] MEDS: DIVALPROEX SODIUM 500 MG DR TABLET PO SCH ×2 (09:20→16:11)
[2019-08-22] MEDS: SERTRALINE HCL 50 MG TABLET PO SCH (09:20)
[2019-08-22] MEDS: ATORVASTATIN CALCIUM 10 MG TABLET PO SCH (09:21)
[2019-08-22] MEDS: MAGNESIUM HYDROXIDE SUSPENSION 30 ML UDCUP PO PRN (15:17)
[2019-08-22 16:07] VITALS: BP 123/68
[2019-08-22 16:22] LABS: GLUCOMETER DEV NAME(LOC) BV3S.; GLUCOSE,POINT OF CARE 87 MG/DL (70-110)
[2019-08-22] MEDS: TraZODone HCL 50 MG TABLET PO SCH (20:08)
[2019-08-22] MEDS: LORazepam 1 MG TABLET PO PRN (20:08)
[2019-08-22 20:35] LABS: GLUCOMETER DEV NAME(LOC) BV3S.; GLUCOSE,POINT OF CARE 108 MG/DL (70-110)
[2019-08-23 05:50] VITALS: BP 122/72
[2019-08-23] MEDS: MetFORMIN HCL 500 MG TABLET PO SCH ×2 (06:37→16:05)
[2019-08-23] MEDS: LURASIDONE HCL 60 MG TABLET PO SCH ×2 (06:37→16:05)
[2019-08-23 06:53] LABS: GLUCOMETER DEV NAME(LOC) BV3S.; GLUCOSE,POINT OF CARE 97 MG/DL (70-110)
[2019-08-23] MEDS: LORazepam 1 MG TABLET PO PRN ×2 (07:04→19:59)
[2019-08-23 08:09] VITALS: BP 113/71
[2019-08-23] MEDS: DOCUSATE SODIUM 100 MG CAPSULE PO SCH (08:23)
[2019-08-23] MEDS: MULTIVITAMINS WITH IRON TABLET PO SCH (08:23)
[2019-08-23] MEDS: SERTRALINE HCL 50 MG TABLET PO SCH (08:23)
[2019-08-23] MEDS: DIVALPROEX SODIUM 500 MG DR TABLET PO SCH ×2 (08:23→16:05)
[2019-08-23] MEDS: BENZTROPINE MESYLATE 1 MG TABLET PO SCH ×2 (08:23→16:05)
[2019-08-23] MEDS: ATORVASTATIN CALCIUM 10 MG TABLET PO SCH (08:23)
[2019-08-23] MEDS: OMEPRAZOLE 20 MG CAPSULE PO SCH (08:25)
[2019-08-23] MEDS ORDERED: FLUCONAZOLE 100 MG TABLET PO SCH (10:15)
[2019-08-23 12:50] LABS: GLUCOMETER DEV NAME(LOC) BV3S.; GLUCOSE,POINT OF CARE 153 MG/DL (70-110)
[2019-08-23] MEDS: FLUCONAZOLE 150 MG TABLET PO SCH (16:05)
[2019-08-23 16:24] VITALS: BP 152/60
[2019-08-23 17:17] LABS: GLUCOMETER DEV NAME(LOC) BV3S.; GLUCOSE,POINT OF CARE 155 MG/DL (70-110)
[2019-08-23] MEDS: TraZODone HCL 50 MG TABLET PO SCH (20:01)
[2019-08-23 20:10] LABS: GLUCOMETER DEV NAME(LOC) BV3S.; GLUCOSE,POINT OF CARE 122 MG/DL (70-110)
[2019-08-23] MEDS: HALOPERIDOL 5 MG TABLET PO PRN (20:33)
[2019-08-24 05:04] VITALS: BP 120/66
[2019-08-24] MEDS: LURASIDONE HCL 60 MG TABLET PO SCH ×2 (06:38→16:40)
[2019-08-24] MEDS: MetFORMIN HCL 500 MG TABLET PO SCH ×2 (06:38→16:41)
[2019-08-24 06:57] LABS: GLUCOMETER DEV NAME(LOC) BV3S.; GLUCOSE,POINT OF CARE 88 MG/DL (70-110)
[2019-08-24 08:17] VITALS: BP 109/59
[2019-08-24 08:50] VITALS: BP 112/70
[2019-08-24] MEDS: DIVALPROEX SODIUM 500 MG DR TABLET PO SCH ×2 (08:51→16:40)
[2019-08-24] MEDS: SERTRALINE HCL 50 MG TABLET PO SCH (08:51)
[2019-08-24] MEDS: MULTIVITAMINS WITH IRON TABLET PO SCH (08:51)
[2019-08-24] MEDS: DOCUSATE SODIUM 100 MG CAPSULE PO SCH (08:51)
[2019-08-24] MEDS: BENZTROPINE MESYLATE 1 MG TABLET PO SCH ×2 (08:51→16:41)
[2019-08-24] MEDS: ATORVASTATIN CALCIUM 10 MG TABLET PO SCH (08:51)
[2019-08-24] MEDS: FLUCONAZOLE 150 MG TABLET PO SCH (08:52)
[2019-08-24] MEDS: OMEPRAZOLE 20 MG CAPSULE PO SCH (08:52)
[2019-08-24] MEDS: LORazepam 1 MG TABLET PO PRN (08:52)
[2019-08-24 14:28] LABS: GLUCOMETER DEV NAME(LOC) BV2S.; GLUCOSE,POINT OF CARE 102 MG/DL (70-110)
[2019-08-24 16:00] VITALS: BP 100/67
[2019-08-24 17:42] LABS: GLUCOMETER DEV NAME(LOC) BV2S.; GLUCOSE,POINT OF CARE 124 MG/DL (70-110)
[2019-08-24] MEDS: TraZODone HCL 50 MG TABLET PO SCH (20:32)
[2019-08-24 21:02] LABS: GLUCOMETER DEV NAME(LOC) BV2S.; GLUCOSE,POINT OF CARE 106 MG/DL (70-110)
[2019-08-25 00:39] VITALS: BP 102/70
[2019-08-25 06:19] LABS: GLUCOMETER DEV NAME(LOC) BV2S.; GLUCOSE,POINT OF CARE 80 MG/DL (70-110)
[2019-08-25] MEDS: MetFORMIN HCL 500 MG TABLET PO SCH ×2 (06:40→17:03)
[2019-08-25] MEDS: LURASIDONE HCL 60 MG TABLET PO SCH ×2 (06:40→17:03)
[2019-08-25] MEDS: ATORVASTATIN CALCIUM 10 MG TABLET PO SCH (08:03)
[2019-08-25] MEDS: DOCUSATE SODIUM 100 MG CAPSULE PO SCH (08:03)
[2019-08-25] MEDS: FLUCONAZOLE 150 MG TABLET PO SCH (08:03)
[2019-08-25] MEDS: DIVALPROEX SODIUM 500 MG DR TABLET PO SCH ×2 (08:03→17:03)
[2019-08-25] MEDS: MULTIVITAMINS WITH IRON TABLET PO SCH (08:04)
[2019-08-25] MEDS: SERTRALINE HCL 50 MG TABLET PO SCH (08:04)
[2019-08-25] MEDS: BENZTROPINE MESYLATE 1 MG TABLET PO SCH ×2 (08:04→17:03)
[2019-08-25] MEDS: OMEPRAZOLE 20 MG CAPSULE PO SCH (08:11)
[2019-08-25] MEDS: LORazepam 1 MG TABLET PO PRN (08:19)
[2019-08-25 08:22] VITALS: BP 114/68
[2019-08-25 11:15] LABS: GLUCOMETER DEV NAME(LOC) BV2S.; GLUCOSE,POINT OF CARE 105 MG/DL (70-110)
[2019-08-25 16:23] VITALS: BP 132/75
[2019-08-25 17:12] LABS: GLUCOMETER DEV NAME(LOC) BV2S.; GLUCOSE,POINT OF CARE 159 MG/DL (70-110)
[2019-08-25] MEDS: TraZODone HCL 50 MG TABLET PO SCH (20:23)
[2019-08-25 20:45] LABS: GLUCOMETER DEV NAME(LOC) BV2S.; GLUCOSE,POINT OF CARE 120 MG/DL (70-110)
[2019-08-26 00:16] VITALS: BP 128/72
[2019-08-26] MEDS: LURASIDONE HCL 60 MG TABLET PO SCH ×2 (06:24→15:56)
[2019-08-26] MEDS: MetFORMIN HCL 500 MG TABLET PO SCH ×2 (06:24→15:56)
[2019-08-26 06:33] LABS: GLUCOMETER DEV NAME(LOC) BV2S.; GLUCOSE,POINT OF CARE 98 MG/DL (70-110)
[2019-08-26 08:35] VITALS: BP 115/59
[2019-08-26] MEDS: MULTIVITAMINS WITH IRON TABLET PO SCH (08:45)
[2019-08-26] MEDS: BENZTROPINE MESYLATE 1 MG TABLET PO SCH ×2 (08:46→15:56)
[2019-08-26] MEDS: SERTRALINE HCL 50 MG TABLET PO SCH (08:46)
[2019-08-26] MEDS: OMEPRAZOLE 20 MG CAPSULE PO SCH (08:46)
[2019-08-26] MEDS: ATORVASTATIN CALCIUM 10 MG TABLET PO SCH (08:46)
[2019-08-26] MEDS: DIVALPROEX SODIUM 500 MG DR TABLET PO SCH ×2 (08:46→15:56)
[2019-08-26] MEDS: DOCUSATE SODIUM 100 MG CAPSULE PO SCH (08:46)
[2019-08-26] MEDS: LORazepam 1 MG TABLET PO PRN (08:48)
[2019-08-26 11:07] LABS: GLUCOMETER DEV NAME(LOC) BV2S.; GLUCOSE,POINT OF CARE 92 MG/DL (70-110)
[2019-08-26] MEDS: IBUPROFEN 600 MG TABLET PO PRN (14:03)
[2019-08-26 16:06] LABS: GLUCOMETER DEV NAME(LOC) BV2S.; GLUCOSE,POINT OF CARE 189 MG/DL (70-110)
[2019-08-26 16:29] VITALS: BP 125/73
[2019-08-26] MEDS: TraZODone HCL 50 MG TABLET PO SCH (19:58)
[2019-08-26 20:10] LABS: GLUCOMETER DEV NAME(LOC) BV2S.; GLUCOSE,POINT OF CARE 118 MG/DL (70-110)
[2019-08-27] MEDS: LURASIDONE HCL 60 MG TABLET PO SCH ×2 (06:55→16:52)
[2019-08-27] MEDS: MetFORMIN HCL 500 MG TABLET PO SCH ×2 (06:55→16:52)
[2019-08-27 06:59] VITALS: BP 122/68
[2019-08-27] MEDS: SERTRALINE HCL 50 MG TABLET PO SCH (08:02)
[2019-08-27] MEDS: BENZTROPINE MESYLATE 1 MG TABLET PO SCH ×2 (08:02→16:52)
[2019-08-27] MEDS: ATORVASTATIN CALCIUM 10 MG TABLET PO SCH (08:02)
[2019-08-27] MEDS: DOCUSATE SODIUM 100 MG CAPSULE PO SCH (08:02)
[2019-08-27] MEDS: DIVALPROEX SODIUM 500 MG DR TABLET PO SCH ×2 (08:02→16:52)
[2019-08-27] MEDS: MULTIVITAMINS WITH IRON TABLET PO SCH (08:03)
[2019-08-27] MEDS: OMEPRAZOLE 20 MG CAPSULE PO SCH (08:07)
[2019-08-27 10:58] LABS: GLUCOMETER DEV NAME(LOC) BV2S.; GLUCOSE,POINT OF CARE 97 MG/DL (70-110)
[2019-08-27] MEDS: LORazepam 1 MG TABLET PO PRN (12:22)
[2019-08-27 12:23] VITALS: BP 118/72
[2019-08-27] MEDS: IBUPROFEN 600 MG TABLET PO PRN (12:23)
[2019-08-27 16:15] LABS: GLUCOMETER DEV NAME(LOC) BV2S.; GLUCOSE,POINT OF CARE 144 MG/DL (70-110)
[2019-08-27 16:38] VITALS: BP 108/65
[2019-08-27] MEDS: TraZODone HCL 50 MG TABLET PO SCH (20:24)
[2019-08-27 20:48] LABS: GLUCOMETER DEV NAME(LOC) BV2S.; GLUCOSE,POINT OF CARE 101 MG/DL (70-110)
[2019-08-28 06:31] VITALS: BP 103/64
[2019-08-28 06:34] LABS: GLUCOMETER DEV NAME(LOC) BV2S.; GLUCOSE,POINT OF CARE 110 MG/DL (70-110)
[2019-08-28] MEDS: MetFORMIN HCL 500 MG TABLET PO SCH ×2 (06:38→16:25)
[2019-08-28] MEDS: LURASIDONE HCL 60 MG TABLET PO SCH ×2 (06:38→16:32)
[2019-08-28] MEDS: ATORVASTATIN CALCIUM 10 MG TABLET PO SCH (09:08)
[2019-08-28] MEDS: DOCUSATE SODIUM 100 MG CAPSULE PO SCH (09:09)
[2019-08-28] MEDS: SERTRALINE HCL 50 MG TABLET PO SCH (09:09)
[2019-08-28] MEDS: MULTIVITAMINS WITH IRON TABLET PO SCH (09:09)
[2019-08-28] MEDS: OMEPRAZOLE 20 MG CAPSULE PO SCH (09:09)
[2019-08-28] MEDS: BENZTROPINE MESYLATE 1 MG TABLET PO SCH ×2 (09:09→16:24)
[2019-08-28] MEDS: DIVALPROEX SODIUM 500 MG DR TABLET PO SCH ×2 (09:09→16:25)
[2019-08-28] MEDS: LORazepam 1 MG TABLET PO PRN (16:42)
[2019-08-28 16:53] LABS: GLUCOMETER DEV NAME(LOC) BV2S.; GLUCOSE,POINT OF CARE 171 MG/DL (70-110)
[2019-08-28 18:03] VITALS: BP 105/72
[2019-08-28] MEDS: IBUPROFEN 600 MG TABLET PO PRN (18:49)
[2019-08-28] MEDS: TraZODone HCL 50 MG TABLET PO SCH (20:24)
[2019-08-29 00:08] VITALS: BP 122/77
[2019-08-29] MEDS: MetFORMIN HCL 500 MG TABLET PO SCH (06:47)
[2019-08-29] MEDS: LURASIDONE HCL 60 MG TABLET PO SCH (06:47)
[2019-08-29 07:07] LABS: GLUCOMETER DEV NAME(LOC) BV2S.; GLUCOSE,POINT OF CARE 99 MG/DL (70-110)
[2019-08-29 08:36] VITALS: BP 106/57
[2019-08-29] MEDS: DIVALPROEX SODIUM 500 MG DR TABLET PO SCH (09:42)
[2019-08-29] MEDS: ATORVASTATIN CALCIUM 10 MG TABLET PO SCH (09:42)
[2019-08-29] MEDS: MULTIVITAMINS WITH IRON TABLET PO SCH (09:42)
[2019-08-29] MEDS: BENZTROPINE MESYLATE 1 MG TABLET PO SCH (09:42)
[2019-08-29] MEDS: DOCUSATE SODIUM 100 MG CAPSULE PO SCH (09:42)
[2019-08-29] MEDS: SERTRALINE HCL 50 MG TABLET PO SCH (09:42)
[2019-08-29] MEDS: OMEPRAZOLE 20 MG CAPSULE PO SCH (09:42)
[2019-08-29] MEDS ORDERED: DIVA-112 PO ×2 (09:43→11:31)
[2019-08-29] MEDS ORDERED: METF-960 PO (09:43)
[2019-08-29] MEDS ORDERED: ATOR10TA84 PO (09:43)
[2019-08-29] MEDS ORDERED: TRAZ-252 PO ×2 (09:43→11:31)
[2019-08-29] MEDS ORDERED: SERT50TA12 PO ×2 (09:43→11:31)
[2019-08-29] MEDS ORDERED: BENZ1TAB10 PO ×2 (09:43→11:31)
[2019-08-29] MEDS ORDERED: LURA60TA PO ×2 (09:43→11:31)
[2019-08-29 11:01] LABS: GLUCOMETER DEV NAME(LOC) BV2S.; GLUCOSE,POINT OF CARE 142 MG/DL (70-110)
== END 2019-08-29 13:10 | disposition home or self-care (01) | DRG 885 ==
LOC: EMS 11:31 → B3A 17:28 → UNDOADMIN 18:32 → B3A 08-17 20:35 → B2S 08-24 10:51
PROVIDERS: ADMIT Psychiatry & Neurology Child & Adolescent Psychiatry; ATTEND Psychiatry & Neurology Psychiatry
DX: F25.0 Schizoaffective disorder, bipolar type (principal); F15.20 Other stimulant dependence, uncomplicated; Z88.0 Allergy status to penicillin; Z88.8 Allergy status to other drugs, medicaments and biological substances; I10 Essential (primary) hypertension; E11.9 Type 2 diabetes mellitus without complications; E78.5 Hyperlipidemia, unspecified; J44.9 Chronic obstructive pulmonary disease, unspecified; K21.9 Gastro-esophageal reflux disease without esophagitis; F41.9 Anxiety disorder, unspecified; G47.00 Insomnia, unspecified; F19.10 Other psychoactive substance abuse, uncomplicated; E78.00 Pure hypercholesterolemia, unspecified; K59.00 Constipation, unspecified; Z91.14 Patient's other noncompliance with medication regimen; Z59.0 Homelessness; F32.9 Major depressive disorder, single episode, unspecified; F17.210 Nicotine dependence, cigarettes, uncomplicated; F12.90 Cannabis use, unspecified, uncomplicated; B37.9 Candidiasis, unspecified
CPT/HCPCS: 83036; 87081; G0480; J1200; J1630; J2060

== ENCOUNTER 2019-08-05 10:46 | Emergency (ER) | payer MEDICAID, OTHER ==
[~2019-08-05] VITALS: Ht 165.1 cm; Wt 97.7 kg
[~2019-08-05 10:46] MED LIST changes: -DIVA-112 PO; +DIVA-78 PO
[2019-08-05 12:21] LABS: GLUCOSE,POINT OF CARE 117 MG/DL (70-110)
[2019-08-05 13:05] LABS: BASOPHILS % (AUTO) 0.2 % (0.0-2.0); EOSINOPHILS % (AUTO) 1.2 % (1.0-6.0); HEMATOCRIT 35.7 % (36-46); LYMPHOCYTES # (AUTO) 2.4 K/uL (1.0-4.8); LYMPHOCYTES % (AUTO) 39.2 % (22.0-44.0); MEAN CORPUSCULAR HEMOGLOBIN 30.5 pg (26.0-34.0); MEAN CORPUSCULAR HGB CONC 33.7 G/dL (31.0-37.0); MEAN CORPUSCULAR VOLUME 91 fL (80-100); MONOCYTES # (AUTO) 0.5 K/uL (0.1-1.0); MONOCYTES % (AUTO) 7.7 % (2.0-9.0); NEUTROPHILS # (AUTO) 3.2 K/uL (1.8-7.7); NEUTROPHILS % (AUTO) 51.7 % (40.0-70.0); PLATELET COUNT (AUTO) 289 K/uL (150-450); RED BLOOD CELL COUNT(AUTO) 3.94 MIL/uL (4.00-5.20); RED CELL DISTRIBUTION WIDTH 15.1 % (11.5-14.5)
[2019-08-05 13:11] LABS: ANION GAP 6 mmol/L (8-16); CARBON DIOXIDE 31 mmol/L (22-29); CHLORIDE 103 mmol/L (98-107); GLOMERULAR FILTR. RATE CALC > 60 mL/min (>60); GLUCOSE,RANDOM 105 mg/dL (70-110); POTASSIUM 4.8 mmol/L (3.5-5.1); SODIUM SERUM 140 mmol/L (136-145); UREA NITROGEN, BLOOD 17 mg/dL (7-18)
[2019-08-05 13:25] LABS: ALANINE AMINOTRANSFERASE 26 U/L (12-78); ALKALINE PHOSPHATASE 81 U/L (46-116); ASPARTATE AMINOTRANSFERASE 8 U/L (15-37); BILIRUBIN,TOTAL 0.2 mg/dL (0.1-1.0); HCG,QUANTITATIVE < 1 mIU/mL (0-6); LIPASE 161 U/L (73-393); TOTAL PROTEIN, SERUM 6.7 g/dL (6.4-8.2)
[2019-08-05] MEDS ORDERED: FLUCONAZOLE 150 MG TABLET PO ONE (13:45)
[2019-08-05] MEDS ORDERED: CefTRIAXone SODIUM 1 GM/VIAL IM ONE (13:45)
[2019-08-05] MEDS ORDERED: AZITHROMYCIN 500 MG TABLET PO ONE (13:45)
[2019-08-05 13:56] LABS: APPEARANCE,URINE CLOUDY (CLEAR); BILIRUBIN,URINE NEGATIVE (NEGATIVE); GLUCOSE, URINE (UA) NEGATIVE (NEGATIVE); KETONES,URINE NEGATIVE (NEGATIVE); LEUKOCYTE ESTERASE ,URINE MODERATE (NEGATIVE); NITRATE,URINE NEGATIVE (NEGATIVE); OCCULT BLOOD,URINE NEGATIVE (NEGATIVE); PROTEIN,URINE TRACE (NEGATIVE); UROBILINOGEN,URINE 0.2 mg/dL (<=1.0)
[2019-08-05 14:08] LABS: BACTERIA,URINE Moderate /HPF (None Seen); RBC,URINE 0-2 /HPF (0-2); SQUAMOUS EPITHELIAL CELL,UR Many /LPF (None Seen)
[2019-08-05 14:45] VITALS: BP 118/62
== END 2019-08-05 15:35 | disposition other institution (70) ==
LOC: EMS 10:52
DX: N39.0 Urinary tract infection, site not specified (principal); F17.210 Nicotine dependence, cigarettes, uncomplicated; F12.90 Cannabis use, unspecified, uncomplicated; F15.90 Other stimulant use, unspecified, uncomplicated; E11.9 Type 2 diabetes mellitus without complications; I10 Essential (primary) hypertension; F20.9 Schizophrenia, unspecified; Z88.0 Allergy status to penicillin
CPT/HCPCS: 36415; 80053; 80164; 81001; 82962; 83690; 84702; 85025; 87086; 96372; 99285; J0696

== ENCOUNTER 2021-05-31 14:44 | Inpatient (IN) | payer MEDICAID, OTHER ==
[~2021-05-31] VITALS: Ht 162.6 cm; Wt 106.9 kg
[~2021-05-31 14:44] MED LIST changes: +BENZ1TAB96 PO; +DIVA-112 PO; -DIVA-78 PO; -LISI-660 PO; -LURA40TA2 PO; +LURA60TA PO; +METF-1211 PO; -METF-960 PO; +SERT-158 PO; +SERT-439 PO
[2021-05-31 16:34] LABS: BASOPHILS % (AUTO) 0.5 % (0.0-2.0); HEMATOCRIT 41.6 % (36-46); HEMOGLOBIN 14.2 g/dL (12.0-16.0); LYMPHOCYTES # (AUTO) 2.8 K/uL (1.0-4.8); LYMPHOCYTES % (AUTO) 20.1 % (22.0-44.0); MEAN CORPUSCULAR HEMOGLOBIN 30.9 pg (26.0-34.0); MEAN CORPUSCULAR HGB CONC 34.1 G/dL (31.0-37.0); MEAN CORPUSCULAR VOLUME 91 fL (80-100); MONOCYTES # (AUTO) 0.6 K/uL (0.1-1.0); MONOCYTES % (AUTO) 4.7 % (2.0-9.0); NEUTROPHILS # (AUTO) 10.1 K/uL (1.8-7.7); NEUTROPHILS % (AUTO) 73.7 % (40.0-70.0); PLATELET COUNT (AUTO) 346 K/uL (150-450); RED BLOOD CELL COUNT(AUTO) 4.59 MIL/uL (4.00-5.20); RED CELL DISTRIBUTION WIDTH 15.8 % (11.5-14.5)
[2021-05-31 16:43] LABS: ANION GAP 9 mmol/L (8-16); CALCIUM, TOTAL 9.4 mg/dL (8.8-10.5); CARBON DIOXIDE 28 mmol/L (22-29); CHLORIDE 100 mmol/L (98-107); GLOMERULAR FILTR. RATE CALC > 60 mL/min (>60); GLUCOSE,RANDOM 229 mg/dL (70-110); POTASSIUM 4.3 mmol/L (3.5-5.1); SODIUM SERUM 137 mmol/L (136-145); UREA NITROGEN, BLOOD 16 mg/dL (7-18)
[2021-05-31 16:49] LABS: ALANINE AMINOTRANSFERASE 30 U/L (12-78); ALBUMIN 3.5 g/dL (3.4-5.0); ALKALINE PHOSPHATASE 116 U/L (46-116); ASPARTATE AMINOTRANSFERASE 21 U/L (15-37); BILIRUBIN,TOTAL 0.4 mg/dL (0.1-1.0); TOTAL PROTEIN, SERUM 7.7 g/dL (6.4-8.2)
[2021-05-31] MEDS ORDERED: HALOPERIDOL 5 MG TABLET PO PRN (17:15)
[2021-05-31 17:21] LABS: COVID AG,FIA SOURCE NASOPHARYNGEAL
[2021-05-31 17:29] LABS: APPEARANCE,URINE CLEAR (CLEAR); BILIRUBIN,URINE NEGATIVE (NEGATIVE); GLUCOSE, URINE (UA) 300-500 mg/dL (NEGATIVE); LEUKOCYTE ESTERASE ,URINE NEGATIVE (NEGATIVE); NITRATE,URINE NEGATIVE (NEGATIVE); OCCULT BLOOD,URINE NEGATIVE (NEGATIVE); PROTEIN,URINE 30-70 mg/dL (NEGATIVE); SPECIFIC GRAVITIY, URINE 1.023 (1.003-1.030); UROBILINOGEN,URINE <=1.0 mg/dL (<=1.0)
[2021-05-31 17:35] LABS: AMPHET/METH SCREEN,URINE POSITIVE (NEGATIVE); BARBITURATE SCREEN, URINE NEGATIVE (NEGATIVE); BENZODIAZEPINES SCREEN,URINE NEGATIVE (NEGATIVE); CANNABINOID SCREEN,URINE POSITIVE (NEGATIVE); COCAINE SCREEN,URINE NEGATIVE (NEGATIVE); METHADONE SCREEN, URINE NEGATIVE (NEGATIVE); OPIATE SCREEN,URINE NEGATIVE (NEGATIVE); PHENCYCLIDINE SCREEN,URINE NEGATIVE (NEGATIVE)
[2021-05-31 17:41] LABS: BACTERIA,URINE None Seen /HPF (None Seen); RBC,URINE 0-2 /HPF (0-2); SQUAMOUS EPITHELIAL CELL,UR Few /LPF (None Seen); WBC,URINE 0-2 /HPF (0-5)
[2021-05-31 21:23] VITALS: BP 138/88
[2021-05-31] MEDS: ZOLPIDEM TARTRATE 10 MG TABLET PO PRN (21:45)
[2021-05-31] MEDS: LORazepam 2 MG TABLET PO PRN (21:45)
[2021-06-01 04:09] VITALS: BP 105/69
[2021-06-01] MEDS ORDERED: ALBUTEROL SULFATE HFA 90 MCG/PUFF 8 GM INHALER IH PRN (09:30)
[2021-06-01] MEDS ORDERED: NICOTINE 14 MG/24 HOUR PATCH TD PRN (09:30)
[2021-06-01] MEDS ORDERED: LOPERAMIDE HCL 2 MG CAPSULE PO PRN (09:30)
[2021-06-01] MEDS ORDERED: MAGNESIUM HYDROXIDE SUSPENSION 30 ML UDCUP PO PRN (09:30)
[2021-06-01] MEDS ORDERED: ACETAMINOPHEN 325 MG TABLET PO PRN (09:30)
[2021-06-01] MEDS ORDERED: PETROLATUM,WHITE 28 GM JELLY TP PRN (09:30)
[2021-06-01] MEDS ORDERED: CloNIDine HCL 0.1 MG TABLET PO PRN (09:30)
[2021-06-01] MEDS ORDERED: ONDANSETRON HCL 4 MG TABLET PO PRN (09:30)
[2021-06-01] MEDS ORDERED: MAG HYDROX/AL HYDROX/SIMETH ES 30 ML SUSPENSION UDCUP PO PRN (09:30)
[2021-06-01] MEDS ORDERED: GuaiFENesin/D-METHORPHAN [SUGAR-FREE] 200-20MG/10 ML SYRUP UDCUP PO PRN (09:30)
[2021-06-01] MEDS: BuPROPion HCL XL 150 MG ER TABLET PO SCH (12:05)
[2021-06-01] MEDS: HALOPERIDOL 5 MG TABLET PO SCH ×2 (12:08→16:02)
[2021-06-01] MEDS: IBUPROFEN 400 MG TABLET PO PRN (15:40)
[2021-06-01] MEDS: MetFORMIN HCL 500 MG TABLET PO SCH (16:03)
[2021-06-01 16:35] VITALS: BP 120/71
[2021-06-01] MEDS: DiphenhydrAMINE HCL 25 MG CAPSULE PO SCH (20:07)
[2021-06-02 03:21] VITALS: BP 119/68
[2021-06-02 04:47] VITALS: BP 116/66
[2021-06-02] MEDS: MetFORMIN HCL 500 MG TABLET PO SCH ×2 (07:12→16:26)
[2021-06-02 08:07] VITALS: BP 149/84
[2021-06-02] MEDS: ATORVASTATIN CALCIUM 10 MG TABLET PO SCH (08:19)
[2021-06-02] MEDS: HALOPERIDOL 5 MG TABLET PO SCH ×2 (08:19→16:26)
[2021-06-02] MEDS: BuPROPion HCL XL 150 MG ER TABLET PO SCH (08:19)
[2021-06-02] MEDS: LORazepam 2 MG TABLET PO PRN (08:20)
[2021-06-02 10:00] VITALS: BP 138/78
[2021-06-02 16:22] VITALS: BP 145/83
[2021-06-02] MEDS: IBUPROFEN 400 MG TABLET PO PRN (17:07)
[2021-06-02] MEDS: DiphenhydrAMINE HCL 25 MG CAPSULE PO SCH (20:22)
[2021-06-02] MEDS: ZOLPIDEM TARTRATE 10 MG TABLET PO PRN (21:49)
[2021-06-03 06:06] VITALS: BP 138/63
[2021-06-03] MEDS: MetFORMIN HCL 500 MG TABLET PO SCH ×2 (06:57→16:33)
[2021-06-03] MEDS: ATORVASTATIN CALCIUM 10 MG TABLET PO SCH (08:07)
[2021-06-03] MEDS: BuPROPion HCL XL 150 MG ER TABLET PO SCH (08:07)
[2021-06-03] MEDS: HALOPERIDOL 5 MG TABLET PO SCH ×2 (08:07→16:34)
[2021-06-03] MEDS: LORazepam 2 MG TABLET PO PRN (08:07)
[2021-06-03 08:51] VITALS: BP 139/90
[2021-06-03] MEDS: IBUPROFEN 400 MG TABLET PO PRN (15:14)
[2021-06-03 16:33] VITALS: BP 126/81
[2021-06-03] MEDS: DiphenhydrAMINE HCL 25 MG CAPSULE PO SCH (20:02)
[2021-06-03] MEDS: ZOLPIDEM TARTRATE 10 MG TABLET PO PRN (20:02)
[2021-06-03] MEDS: DOCUSATE SODIUM 100 MG CAPSULE PO PRN (20:02)
[2021-06-04 06:28] VITALS: BP 108/55
[2021-06-04] MEDS: MetFORMIN HCL 500 MG TABLET PO SCH ×2 (06:57→16:41)
[2021-06-04] MEDS: IBUPROFEN 400 MG TABLET PO PRN ×2 (07:04→20:13)
[2021-06-04] MEDS: BuPROPion HCL XL 150 MG ER TABLET PO SCH (08:51)
[2021-06-04] MEDS: HALOPERIDOL 5 MG TABLET PO SCH ×2 (08:51→16:41)
[2021-06-04] MEDS: ATORVASTATIN CALCIUM 10 MG TABLET PO SCH (08:51)
[2021-06-04] MEDS: LORazepam 2 MG TABLET PO PRN ×2 (12:19→19:34)
[2021-06-04 16:21] VITALS: BP 115/65
[2021-06-04] MEDS: DiphenhydrAMINE HCL 25 MG CAPSULE PO SCH (20:09)
[2021-06-05 04:00] VITALS: BP 105/63
[2021-06-05] MEDS: MetFORMIN HCL 500 MG TABLET PO SCH ×2 (06:26→17:01)
[2021-06-05] MEDS: HALOPERIDOL 5 MG TABLET PO SCH ×2 (08:20→17:01)
[2021-06-05] MEDS: BuPROPion HCL XL 150 MG ER TABLET PO SCH (08:20)
[2021-06-05] MEDS: ATORVASTATIN CALCIUM 10 MG TABLET PO SCH (08:21)
[2021-06-05] MEDS: LORazepam 2 MG TABLET PO PRN (08:21)
[2021-06-05 17:01] VITALS: BP 114/75
[2021-06-05] MEDS: DOCUSATE SODIUM 100 MG CAPSULE PO PRN (18:59)
[2021-06-05] MEDS: IBUPROFEN 800 MG TABLET PO PRN (20:07)
[2021-06-05] MEDS: DiphenhydrAMINE HCL 25 MG CAPSULE PO SCH (20:07)
[2021-06-06 01:20] VITALS: BP 116/4
[2021-06-06] MEDS: MetFORMIN HCL 500 MG TABLET PO SCH (07:25)
[2021-06-06] MEDS: HALOPERIDOL 5 MG TABLET PO SCH (08:02)
[2021-06-06 08:04] VITALS: BP 133/68
[2021-06-06] MEDS: BuPROPion HCL XL 150 MG ER TABLET PO SCH (08:04)
[2021-06-06] MEDS: ATORVASTATIN CALCIUM 10 MG TABLET PO SCH (08:04)
[2021-06-06] MEDS: LORazepam 2 MG TABLET PO PRN (08:05)
[2021-06-06] MEDS ORDERED: BUPR-49 PO (10:57)
[2021-06-06] MEDS ORDERED: DIPH25 PO (10:57)
[2021-06-06] MEDS ORDERED: HALO5TAB2 PO (10:57)
[2021-06-06] MEDS: IBUPROFEN 800 MG TABLET PO PRN (13:06)
== END 2021-06-06 16:00 | disposition home or self-care (01) | DRG 750 ==
LOC: EMS 14:44 → B3A 17:51
PROVIDERS: ADMIT Psychiatry & Neurology Child & Adolescent Psychiatry; ATTEND Psychiatry & Neurology Child & Adolescent Psychiatry
DX: F20.0 Paranoid schizophrenia (principal); R45.851 Suicidal ideations; E11.9 Type 2 diabetes mellitus without complications; E66.9 Obesity, unspecified; E78.5 Hyperlipidemia, unspecified; E86.0 Dehydration; F31.9 Bipolar disorder, unspecified; I10 Essential (primary) hypertension; Z20.822 Contact with and (suspected) exposure to COVID-19; F15.99 Other stimulant use, unspecified with unspecified stimulant-induced disorder; F41.9 Anxiety disorder, unspecified; F12.99 Cannabis use, unspecified with unspecified cannabis-induced disorder; J44.9 Chronic obstructive pulmonary disease, unspecified; Z59.00 Homelessness unspecified; Z87.891 Personal history of nicotine dependence; Z30.430 Encounter for insertion of intrauterine contraceptive device; Z88.0 Allergy status to penicillin; Z91.041 Radiographic dye allergy status; Z72.89 Other problems related to lifestyle; Z79.84 Long term (current) use of oral hypoglycemic drugs; Z68.41 Body mass index [BMI] 40.0-44.9, adult
CPT/HCPCS: 80053; 81001; 81003; 84703; 85025; 99285; G0480